=== PATIENT | female | born 1960 | race Caucasian/White ===

== ENCOUNTER 2018-11-07 15:49 | Inpatient (IN) | payer BC, SELFPAY ==
[2018-11-07] VITALS (7 sets, daily range): BP systolic 91–146; BP diastolic 65–89; PULSE 68–78; RESP 13–22; TEMP 36.3–36.4; O2SAT 94–100; BMI 25.9
--- NOTE | 2018-11-07 16:22 | DI.RAD.S_ITS ---
PROCEDURE: XR ACUTE ABDOMEN SERIES INDICATIONS: abd pain, n/v, constipation TECHNIQUE: One view chest and two views of the abdomen were acquired. COMPARISON: None. FINDINGS: Surgical changes and devices: None. Chest: Lungs are clear. Heart size is normal. No pleural effusions. No pneumoperitoneum. Abdomen: The no air-filled distended small bowel loops are evident. Moderate to large amount of residual stool seen throughout the colon. No suspicious calcifications. Visualized solid organ contours appear normal. Bones: No suspicious bony lesions. Mild to moderate degenerative changes of the spine and pelvic joints are present. IMPRESSION: 1. No bowel obstruction. 2. Constipation. 3. No acute cardiopulmonary process. Dictated by: Андрей Stevens M.D. on 11/07/2018 at 16:55 Approved by: Андрей Stevens M.D. on 11/07/2018 at 16:55
--- NOTE | 2018-11-07 16:27 | DI.CT.S_ITS ---
PROCEDURE: CT HEAD/BRAIN WO CON INDICATIONS: n/v, recent crani TECHNIQUE: Noncontrast 4.5 mm thick angled axial sections acquired from the foramen magnum to the vertex, with coronal and sagittal reformats. For radiation dose reduction, the following was used: automated exposure control, adjustment of mA and/or kV according to patient size. COMPARISON: None. FINDINGS: Image quality: Excellent. CSF spaces: Basal cisterns are patent. No definite extra-axial fluid collections. Linear area of high attenuation overlying the right frontoparietal region probably represents dural thickening. However, the possibility of a very small hemorrhage is difficult to exclude. This structure measures approximately 5 mm in maximal thickness. Ventricles are mildly prominent. Brain: No midline shift. No intracranial masses or hemorrhage. Urrutia-white matter interface is normal. There is a large area of low attenuation/encephalomalacia involving the right frontal parietal and temporal lobes. This is similar to the previous exam. Skull and face: Calvarium and visualized facial bones are intact, without suspicious lesions. Postoperative changes are present related to prior craniotomy. The bone flap is in appropriate position. Sinuses: Visualized sinuses and mastoids are clear. IMPRESSION: 1. Linear area of increased density overlying the right frontoparietal region underlying the bone flap probably represents dural thickening and postoperative change. However, the possibility of a subtle acute small subdural hematoma is difficult to exclude. Followup CT imaging may be of value. 2. Interval placement of the bone flap, which appears to be in appropriate position. 3. Large area of encephalomalacia overlying the right frontoparietal region is unchanged. Dictated by: Андрей Stevens M.D. on 11/07/2018 at 16:29 Approved by: Андрей Stevens M.D. on 11/07/2018 at 16:34
[2018-11-07] MEDS: SODIUM CHLORIDE 0.9% 1,000 ML 1000 ML IV (16:35)
--- NOTE | 2018-11-07 16:46 | ED.NAVMDI ---
HPI - Nausea/Vomiting/Diarrhea <Dahlia Ma, WAFER MACHINE OPERATOR-BC - Last Filed: 11/07/18 21:07> General Chief complaint: Nausea/Vomiting/Diarrhea Stated complaint: vomiting Time Seen by Provider: 11/07/18 16:09 Source: patient and family Mode of arrival: wheelchair Limitations: no limitations History of Present Illness HPI Narrative: The patient is a 57-year-old female nonsmoker with history of craniotomy who presents with her and daughter for chief complaint of abdominal pain nausea and vomiting. 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. She is also being treated for UTI with Levaquin. states that the patient has been dry heaving most of the day, was initially getting up bilious material. He states that her nausea and vomiting has been getting worse. She has been unable to keep down her medications today. states that she has been acting normal for her. Patient states pain in the center of the abdomen. No fevers, no dysuria urgency or frequency. No cough or congestion per . Patient denies chest pain or shortness of breath. No falls or recent trauma. Related Data Home Medications Medication Instructions Recorded Confirmed acetaminophen 650 mg PO Q4H PRN 11/07/18 11/07/18 amiodarone 200 mg PO BID 11/07/18 11/07/18 aspirin 81 mg PO DAILY 11/07/18 11/07/18 atorvastatin 40 mg PO DAILY 11/07/18 11/07/18 bisacodyl 10 mg LA DAILY PRN 11/07/18 11/07/18 doxazosin 1 mg PO DAILY 11/07/18 11/07/18 enoxaparin 40 mg SUBCUT DAILY 11/07/18 11/07/18 furosemide [Lasix] 40 mg PO DAILY 11/07/18 11/07/18 glucagon (human recombinant) 1 mg IM Q20M PRN 11/07/18 11/07/18 insulin glargine 25 unit SUBCUT BID 11/07/18 11/07/18 insulin lispro [Humalog U-100 2 - 12 unit SUBCUT TID 11/07/18 11/07/18 Insulin] levetiracetam 500 mg PO BID 11/07/18 11/07/18 melatonin 3 mg PO BEDTIME PRN 11/07/18 11/07/18 metoprolol succinate 12.5 mg PO DAILY 11/07/18 11/07/18 nystatin 1 applic TOPICAL BID PRN 11/07/18 11/07/18 polyethylene glycol 3350 [Miralax] 17 g PO DAILY 11/07/18 11/07/18 quetiapine 25 mg PO BEDTIME PRN 11/07/18 11/07/18 sennosides [senna] 17.2 mg PO BEDTIME 11/07/18 11/07/18 trazodone 25 mg PO BEDTIME PRN 11/07/18 11/07/18 white petrolatum-mineral oil 0.125 inch EYE-BOTH BEDTIME PRN 11/07/18 11/07/18 [Artificial Tears (chel/min)] Allergies Allergy/AdvReac Type Severity Reaction Status Date / Time lisinopril Allergy Verified 11/07/18 15:55 oxycodone Allergy Verified 11/07/18 15:55 Review of Systems <REMIGIO Bailey - Last Filed: 11/07/18 21:07> Review of Systems GENERAL: Denies chills, fatigue, malaise, fever, sweats. HEENT: Denies sinus pain, ear pain, sore throat, difficulty swallowing, dizziness. RESPIRATORY: Denies dyspnea, cough, wheezing, hemoptysis, sputum. CARDIOVASCULAR: Denies chest pain, palpitations, orthopnea, edema, GASTROINTESTINAL: See HPI : Denies dysuria, frequency, incontinence, hematuria, urinary retention. MUSCULOSKELETAL: denies weakness, joint pain, or bony pain SKIN: See HPI NEUROLOGIC: See HPI PSYCHIATRIC: No concerning psychosocial issues. 12 point review of systems is negative except for those stated above PFSH <REMIGIO Bailey - Last Filed: 11/07/18 21:07> Medical History History of UTI (Acute) History of seizures (Acute) Hypertension (Acute) Nerve pain (Acute) Surgical History History of craniotomy (Acute) Social History Smoking Status: Never smoker Social History household members: spouse and significant other Smoking Status: Never smoker alcohol intake: never Exam <REMIGIO Bailey - Last Filed: 11/07/18 21:07> Narrative Exam Narrative: GENERAL: Chronically ill-appearing female lying on stretcher moaning HEAD: Atraumatic. Normocephalic. No temporal or scalp tenderness. EYES: Pupils equal round and reactive. Extraocular motions intact. No scleral icterus. No injection or drainage. ENT: Nose without bleeding, purulent drainage or septal hematoma. Throat without erythema, tonsillar hypertrophy or exudate. Uvula midline. Airway patent. NECK: Trachea midline. No JVD or lymphadenopathy. Supple, nontender, no meningeal signs. CARDIOVASCULAR: Regular rate and rhythm RESPIRATORY: Clear to auscultation. Breath sounds equal bilaterally. No wheezes, rales, or rhonchi. No cough. No increased respiratory effort. GASTROINTESTINAL: Abdomen soft, diffuse epigastric tenderness to palpation nondistended. No hepato-splenomegaly, or palpable masses. No guarding. EXTREMITIES: No clubbing, cyanosis, or edema. No joint tenderness, effusion, or edema noted. BACK: Nontender without deformity or crepitance. No flank tenderness. NEURO: Alert. Oriented. SKIN: Recent craniotomy scar left right side of head Initial Vital Signs Initial Vital Signs: Vital Signs Temperature 97.5 F L 11/07/18 15:55 Pulse Rate 68 11/07/18 15:55 Respiratory Rate 22 11/07/18 15:55 Blood Pressure 91/66 11/07/18 15:55 Pulse Oximetry 99 11/07/18 15:55 <Travis Rose DO - Last Filed: 11/07/18 23:24> Initial Vital Signs Initial Vital Signs: Vital Signs Temperature 97.5 F L 11/07/18 15:55 Pulse Rate 68 11/07/18 15:55 Respiratory Rate 22 11/07/18 15:55 Blood Pressure 91/66 11/07/18 15:55 Pulse Oximetry 99 11/07/18 15:55 Course <REMIGIO Bailey - Last Filed: 11/07/18 21:07> Course Narrative: I checked on the patient several times throughout her stay in the emergency department. Given the patient's head CT results, I spoke with Neurosurgery down at [facility] and spoke with Dr. Zhen given the radiologist concern. Orders Ordered: ED Orders 11/07/18 16:22 XR acute abdomen series Stat 11/07/18 16:27 CT head/brain wo con Stat 11/07/18 16:42 Amylase Stat Complete Blood Count AUTO DIFF Stat Comprehensive Metabolic Panel Stat Lactate (Lactic Acid) Stat Lipase Stat Procalcitonin Stat Troponin & CK Cardiac Panel Stat 11/07/18 18:16 CT abdomen pelvis w con Stat 11/07/18 18:18 Urine Microscopic Stat 11/07/18 20:12 EKG-12 Lead Stat 11/07/18 22:06 Consult to Dietitian, Adult Routine Consult to Dietitian, Adult Routine Consult to Crew Clerk Routine 11/07/18 22:07 Consult to Discharge Planning Routine Consult to Occupational Therapy Evaluate & Treat 11/07/18 22:08 Consult to Physical Therapy Evaluate & Treat 11/08/18 05:00 Basic Metabolic Panel Routine Complete Blood Count AUTO DIFF Routine Magnesium Routine Aspirin (Aspirin) 300 mg LA DAILY MIRIAN Bisacodyl (Dulcolax) 10 mg PO DAILY PRN PRN Reason: Constipation Dextrose (D50w) 25 gm IV PRN PRN; Protocol PRN Reason: Hypoglycemia Docusate Sodium (Colace) 100 mg PO BID [facility] Enoxaparin Sodium (Lovenox) 40 mg SUBCUT DAILY [facility] Sodium Chloride (Normal Saline 0.9%) 1,000 mls @ 200 mls/hr IV CONT [facility] Last Admin: 11/07/18 22:33 Dose: 200 mls/hr Levetiracetam 500 mg/ Sodium (Chloride) 105 mls @ 420 mls/hr IV Q12HR [facility] Last Admin: 11/07/18 22:48 Dose: 420 mls/hr Insulin Aspart (Novolog Flexpen) 0 unit SUBCUT ACHS [facility]; Protocol Lorazepam (Ativan) 0.5 mg IV Q6HR PRN PRN Reason: Nausea Metoprolol Tartrate (Lopressor) 5 mg IV Q6H [facility] Ondansetron HCl (Zofran) 4 mg IV Q6HR PRN PRN Reason: Nausea And Vomiting Pantoprazole Sodium (Protonix) 40 mg IV BID [facility] Last Admin: 11/07/18 22:48 Dose: 40 mg Promethazine HCl (Phenadoz) 12.5 mg LA Q6HR PRN PRN Reason: Nausea And Vomiting Sennosides (Senna) 17.2 mg PO BEDTIME MIRIAN Discontinued Medications Aspirin (Aspirin) 300 mg LA NOW ONE Stop: 11/07/18 22:11 Sodium Chloride (Normal Saline 0.9%) 1,000 mls @ 1,000 mls/hr IV BOLUS ONE Stop: 11/07/18 17:23 Last Infusion: 11/07/18 19:42 Dose: 0 mls/hr Admin: 11/07/18 16:35 Dose: 1,000 mls/hr Sodium Chloride (Normal Saline 0.9%) 1,000 mls @ 250 mls/hr IV CONT MIRIAN Last Admin: 11/07/18 22:49 Dose: Not Given Lorazepam (Ativan) 0.5 mg IV NOW ONE Stop: 11/07/18 20:44 Last Admin: 11/07/18 20:52 Dose: 0.5 mg Methylprednisolone (Solu-Medrol 125 Mg Vial) 125 mg IV NOW ONE Stop: 11/07/18 20:44 Metoclopramide HCl (Reglan) 10 mg IV NOW ONE Stop: 11/07/18 16:29 Last Admin: 11/07/18 17:12 Dose: 10 mg Mineral Oil (Mineral Oil Enema) 1 each LA NOW ONE Stop: 11/07/18 22:54 Ondansetron HCl (Zofran) 4 mg IV NOW ONE Stop: 11/07/18 16:46 Last Admin: 11/07/18 17:12 Dose: 4 mg Ondansetron HCl (Zofran) 4 mg IV NOW ONE Stop: 11/07/18 19:42 Last Admin: 11/07/18 19:56 Dose: 4 mg Promethazine HCl (Phenadoz) 25 mg LA NOW ONE Stop: 11/07/18 19:58 Last Admin: 11/07/18 22:51 Dose: Not Given Vital Signs - 8 hr 11/07/18 15:55 11/07/18 16:30 11/07/18 18:30 Temperature 97.5 F L Pulse Rate 68 69 77 Respiratory Rate 22 13 Blood Pressure 91/66 Blood Pressure [Left Arm] 123/89 132/68 Pulse Oximetry 99 100 98 11/07/18 19:34 11/07/18 21:55 11/07/18 22:50 Temperature 97.3 F L Pulse Rate 74 77 Respiratory Rate 18 14 Blood Pressure 146/71 H Blood Pressure [Left Arm] 107/65 Pulse Oximetry 96 94 94 <Travis Rose, DO - Last Filed: 11/07/18 23:24> Orders Ordered: ED Orders 11/07/18 16:22 XR acute abdomen series Stat 11/07/18 16:27 CT head/brain wo con Stat 11/07/18 16:42 Amylase Stat Complete Blood Count AUTO DIFF Stat Comprehensive Metabolic Panel Stat Lactate (Lactic Acid) Stat Lipase Stat Procalcitonin Stat Troponin & CK Cardiac Panel Stat 11/07/18 18:16 CT abdomen pelvis w con Stat 11/07/18 18:18 Urine Microscopic Stat 11/07/18 20:12 EKG-12 Lead Stat 11/07/18 22:06 Consult to Dietitian, Adult Routine Consult to Dietitian, Adult Routine Consult to Crew Clerk Routine 11/07/18 22:07 Consult to Discharge Planning Routine Consult to Occupational Therapy Evaluate & Treat 11/07/18 22:08 Consult to Physical Therapy Evaluate & Treat 11/08/18 05:00 Basic Metabolic Panel Routine Complete Blood Count AUTO DIFF Routine Magnesium Routine Aspirin (Aspirin) 300 mg LA DAILY MIRIAN Bisacodyl (Dulcolax) 10 mg PO DAILY PRN PRN Reason: Constipation Dextrose (D50w) 25 gm IV PRN PRN; Protocol PRN Reason: Hypoglycemia Docusate Sodium (Colace) 100 mg PO BID [facility] Enoxaparin Sodium (Lovenox) 40 mg SUBCUT DAILY [facility] Sodium Chloride (Normal Saline 0.9%) 1,000 mls @ 200 mls/hr IV CONT [facility] Last Admin: 11/07/18 22:33 Dose: 200 mls/hr Levetiracetam 500 mg/ Sodium (Chloride) 105 mls @ 420 mls/hr IV Q12HR [facility] Last Admin: 11/07/18 22:48 Dose: 420 mls/hr Insulin Aspart (Novolog Flexpen) 0 unit SUBCUT ACHS [facility]; Protocol Lorazepam (Ativan) 0.5 mg IV Q6HR PRN PRN Reason: Nausea Metoprolol Tartrate (Lopressor) 5 mg IV Q6H [facility] Ondansetron HCl (Zofran) 4 mg IV Q6HR PRN PRN Reason: Nausea And Vomiting Pantoprazole Sodium (Protonix) 40 mg IV BID [facility] Last Admin: 11/07/18 22:48 Dose: 40 mg Promethazine HCl (Phenadoz) 12.5 mg LA Q6HR PRN PRN Reason: Nausea And Vomiting Sennosides (Senna) 17.2 mg PO BEDTIME [facility] Discontinued Medications Aspirin (Aspirin) 300 mg LA NOW ONE Stop: 11/07/18 22:11 Sodium Chloride (Normal Saline 0.9%) 1,000 mls @ 1,000 mls/hr IV BOLUS ONE Stop: 11/07/18 17:23 Last Infusion: 11/07/18 19:42 Dose: 0 mls/hr Admin: 11/07/18 16:35 Dose: 1,000 mls/hr Sodium Chloride (Normal Saline 0.9%) 1,000 mls @ 250 mls/hr IV CONT MIRIAN Last Admin: 11/07/18 22:49 Dose: Not Given Lorazepam (Ativan) 0.5 mg IV NOW ONE Stop: 11/07/18 20:44 Last Admin: 11/07/18 20:52 Dose: 0.5 mg Methylprednisolone (Solu-Medrol 125 Mg Vial) 125 mg IV NOW ONE Stop: 11/07/18 20:44 Metoclopramide HCl (Reglan) 10 mg IV NOW ONE Stop: 11/07/18 16:29 Last Admin: 11/07/18 17:12 Dose: 10 mg Mineral Oil (Mineral Oil Enema) 1 each LA NOW ONE Stop: 11/07/18 22:54 Ondansetron HCl (Zofran) 4 mg IV NOW ONE Stop: 11/07/18 16:46 Last Admin: 11/07/18 17:12 Dose: 4 mg Ondansetron HCl (Zofran) 4 mg IV NOW ONE Stop: 11/07/18 19:42 Last Admin: 11/07/18 19:56 Dose: 4 mg Promethazine HCl (Phenadoz) 25 mg LA NOW ONE Stop: 11/07/18 19:58 Last Admin: 11/07/18 22:51 Dose: Not Given Vital Signs - 8 hr 11/07/18 15:55 11/07/18 16:30 11/07/18 18:30 Temperature 97.5 F L Pulse Rate 68 69 77 Respiratory Rate 22 13 Blood Pressure 91/66 Blood Pressure [Left Arm] 123/89 132/68 Pulse Oximetry 99 100 98 11/07/18 19:34 11/07/18 21:55 11/07/18 22:50 Temperature 97.3 F L Pulse Rate 74 77 Respiratory Rate 18 14 Blood Pressure 146/71 H Blood Pressure [Left Arm] 107/65 Pulse Oximetry 96 94 94 MDM - Nausea/Vomiting/Diarrhea <Dahliayousif Oglesbymer, WAFER MACHINE OPERATOR-BC - Last Filed: 11/07/18 21:07> Lab Data Result diagrams: 11/07/18 16:42 11/07/18 16:42 Lab Results 11/07/18 11/07/18 11/07/18 Range/Units 16:42 16:42 16:42 WBC 12.5 H (4.5-11.0) X10^3/uL RBC 4.43 (4.0-5.2) X10^6/uL Hgb 12.8 (12.0-16.0) g/dL Hct 38.2 (36-46) % MCV 86.2 (80-100) fL MCH 28.9 (26-34) PG MCHC 33.5 (30-36) % RDW 15.5 H (11.6-14.8) % Plt Count 363 (150-400) X10^3/uL Neut % (Auto) 84.1 H (50-75) % Lymph % (Auto) 12.0 L (25-40) % Ellis % (Auto) 2.7 L (3-14) % Eos % (Auto) 0.4 L (2-4) % Baso % (Auto) 0.8 (0-2) % Neut # (Auto) 47807 H (2660-6391) /uL Lymph # (Auto) 1500 (7712-8658) /uL Ellis # (Auto) 300 (0-900) /uL Eos # (Auto) 100 (0-450) /uL Baso # (Auto) 100 (0-100) /uL Sodium 139 (137-145) mmol/L Potassium 4.6 (3.4-5.1) mmol/L Chloride 101 (98-107) mmol/L Carbon Dioxide 22 (22-32) mmol/L BUN 19 H (7-17) mg/dL Creatinine 1.00 (0.52-1.04) mg/dL Estimated GFR 56.7 L (>60) mL/min BUN/Creatinine Ratio 19.0 (6-22) Glucose 194 H (70-100) mg/dL Lactate 2.3 H (0.7-2.1) mmol/L Calcium 9.9 (8.4-10.2) mg/dL Total Bilirubin 0.9 (0.2-1.3) mg/dL AST 30 (14-36) IU/L ALT 29 (9-52) IU/L Alkaline Phosphatase 67 (38-126) U/L Total Creatine Kinase 21 L (30-135) U/L CK-MB (CK-2) TNP CK-MB (CK-2) Rel Index TNP Troponin I < 0.012 (0.01-0.034) ng/mL Total Protein 7.8 (6.3-8.2) g/dL Albumin 4.5 (3.5-5.0) g/dL Globulin 3.3 (1.7-4.1) g/dL Albumin/Globulin Ratio 1.4 (1.0-2.8) Amylase 60 (30-110) U/L Lipase 99 (23-300) U/L Procalcitonin (<0.5) ng/mL Urine RBC (0-5/HPF) Urine WBC (0-5/HPF) Ur Squamous Epith Cells (0-5/HPF) Urine Bacteria (None) Hyaline Casts (None) Urine Mucus (Negative) Ur Culture Indicated? 11/07/18 11/07/18 11/07/18 Range/Units 16:42 18:18 19:00 WBC (4.5-11.0) X10^3/uL RBC (4.0-5.2) X10^6/uL Hgb (12.0-16.0) g/dL Hct (36-46) % MCV (80-100) fL MCH (26-34) PG MCHC (30-36) % RDW (11.6-14.8) % Plt Count (150-400) X10^3/uL Neut % (Auto) (50-75) % Lymph % (Auto) (25-40) % Ellis % (Auto) (3-14) % Eos % (Auto) (2-4) % Baso % (Auto) (0-2) % Neut # (Auto) (3559-2838) /uL Lymph # (Auto) (0508-2815) /uL Ellis # (Auto) (0-900) /uL Eos # (Auto) (0-450) /uL Baso # (Auto) (0-100) /uL Sodium (137-145) mmol/L Potassium (3.4-5.1) mmol/L Chloride (98-107) mmol/L Carbon Dioxide (22-32) mmol/L BUN (7-17) mg/dL Creatinine (0.52-1.04) mg/dL Estimated GFR (>60) mL/min BUN/Creatinine Ratio (6-22) Glucose (70-100) mg/dL Lactate 1.3 (0.7-2.1) mmol/L Calcium (8.4-10.2) mg/dL Total Bilirubin (0.2-1.3) mg/dL AST (14-36) IU/L ALT (9-52) IU/L Alkaline Phosphatase (38-126) U/L Total Creatine Kinase (30-135) U/L CK-MB (CK-2) CK-MB (CK-2) Rel Index Troponin I (0.01-0.034) ng/mL Total Protein (6.3-8.2) g/dL Albumin (3.5-5.0) g/dL Globulin (1.7-4.1) g/dL Albumin/Globulin Ratio (1.0-2.8) Amylase (30-110) U/L Lipase (23-300) U/L Procalcitonin < 0.05 (<0.5) ng/mL Urine RBC 0-1/hpf (0-5/HPF) Urine WBC 0-1/hpf (0-5/HPF) Ur Squamous Epith Cells 0-1 /hpf (0-5/HPF) Urine Bacteria None seen (None) Hyaline Casts 0-1/lpf (None) Urine Mucus 1+ H (Negative) Ur Culture Indicated? Cult not indicated Urine Dip Bedside Urine Glucose Negative Bedside Urine Bilirubin + 1 Bedside Urine Ketone +++ 80 Urine Specific [place] 1.030 Bedside Urine Occult Blood - Negative Bedside Urine pH 5.5 Bedside Urine Protein - Negative Bedside Urine Urobilinogen - Negative Bedside Urine Nitrite - Negative Bedside Urine Leukocytes - Negative Esterase Imaging Data CT scan - abdomen: Radiologist's impression: Zahira Newman 57 F [address] [address] [address] Scan Report Signed Patient: Zahira Newman [facility]#: [id number] : 1960cct:[id number] Age/Sex: 57 / FDate of Service: 11/07/18 Loc: ED Accession Number: [id number] Procedure: CT abdomen pelvis w con Ordering Provider: Dahlia Ma WAFER MACHINE OPERATOR-BC PROCEDURE: CT ABDOMEN PELVIS W CON INDICATIONS: abd pain, elevated wbc, lactate TECHNIQUE: After the administration of intravenous contrast, 5 mm thick sections acquired from the diaphragm to the symphysis. 5 mm coronal and sagittal reformats were acquired. For radiation dose reduction, the following was used: automated exposure control, adjustment of mA and/or kV according to patient size. COMPARISON: None. FINDINGS: Image quality: Excellent. ABDOMEN: Lung bases: Lung bases are clear. Heart size is enlarged. Solid organs: Liver is normal in size and enhancement. Gallbladder demonstrates mild wall hyperemia and contains a large gallstone in the mid body. No significant pericholecystic inflammation. Biliary system is non dilated. Pancreas enhances normally. Spleen is normal in size and enhancement. Tiny fat density right adrenal nodule. Normal left adrenal gland. Kidneys demonstrate normal size and enhancement, without hydronephrosis. Peritoneum and bowel: The stomach and small bowel loops are normal. There is mild inflammatory change surrounding the proximal colon without a focal diverticulum. Normal amount of solid stool present in the transverse and descending colon. Occasional descending and sigmoid diverticula. No extraluminal gas. Normal appendix present. Nodes and vessels: No retroperitoneal or mesenteric adenopathy by size criteria. Aorta and is normal size. The inferior vena cava is mildly flattened. Miscellaneous: No ventral hernias. PELVIS: Genitourinary: Urinary bladder wall is diffusely thickened anteriorly. Uterus and ovaries appear normal. Miscellaneous: No inguinal hernias or adenopathy. Bones: No suspicious bony lesions. There is laminectomy and osseous fusion of the lower lumbosacral spine. Degenerative disc changes are present. No acute fractures. IMPRESSION: 1. Mild pericolonic inflammatory change in the proximal colon indicating colitis without perforation or abscess formation. 2. Normal appendix. 3. Anterior wall thickening of the urinary bladder. This may indicate cystitis, infectious or sterile. Correlate clinically. 4. Cholelithiasis and gallbladder wall hyperemia. No pericholecystic inflammatory changes to suggest acute cholecystitis. 5. Tiny right adrenal adenoma. Dictated by: Alisia Huitron M.D. on 11/07/2018 at 20:18 Approved by: Alisia Huitron M.D. on 11/07/2018 at 20:26 CT scan - head: Radiologist's impression: Zahira Newman 57 F 1960 [place] [address] CT Scan Report Signed Patient: Zahira Newman [facility]#: [id number] : [id number]:[id number] Age/Sex: 57 / FDate of Service: 11/07/18 Loc: ED Accession Number: [id number] Procedure: CT head/brain wo con Ordering Provider: Dahlia Ma [facility] PROCEDURE: CT HEAD/BRAIN WO CON INDICATIONS: n/v, recent crani TECHNIQUE: Noncontrast 4.5 mm thick angled axial sections acquired from the foramen magnum to the vertex, with coronal and sagittal reformats. For radiation dose reduction, the following was used: automated exposure control, adjustment of mA and/or kV according to patient size. COMPARISON: None. FINDINGS: Image quality: Excellent. CSF spaces: Basal cisterns are patent. No definite extra-axial fluid collections. Linear area of high attenuation overlying the right frontoparietal region probably represents dural thickening. However, the possibility of a very small hemorrhage is difficult to exclude. This structure measures approximately 5 mm in maximal thickness. Ventricles are mildly prominent. Brain: No midline shift. No intracranial masses or hemorrhage. Urrutia-white matter interface is normal. There is a large area of low attenuation/encephalomalacia involving the right frontal parietal and temporal lobes. This is similar to the previous exam. Skull and face: Calvarium and visualized facial bones are intact, without suspicious lesions. Postoperative changes are present related to prior craniotomy. The bone flap is in appropriate position. Sinuses: Visualized sinuses and mastoids are clear. IMPRESSION: 1. Linear area of increased density overlying the right frontoparietal region underlying the bone flap probably represents dural thickening and postoperative change. However, the possibility of a subtle acute small subdural hematoma is difficult to exclude. Followup CT imaging may be of value. 2. Interval placement of the bone flap, which appears to be in appropriate position. 3. Large area of encephalomalacia overlying the right frontoparietal region is unchanged. Dictated by: Андрей Stevens M.D. on 11/07/2018 at 16:29 Approved by: Андрей Stevens M.D. on 11/07/2018 at 16:34 Chest x-ray: Radiologist's impression: [address] [address] XRay Report Signed Patient: Zahira Newman [facility]#: [id number] : 9Acct:[id number] Age/Sex: 57 / FDate of Service: 11/07/18 Loc: ED Accession Number: [id number] Procedure: XR acute abdomen series Ordering Provider: Dahlia Ma PROCEDURE: XR ACUTE ABDOMEN SERIES INDICATIONS: abd pain, n/v, constipation TECHNIQUE: One view chest and two views of the abdomen were acquired. COMPARISON: None. FINDINGS: Surgical changes and devices: None. Chest: Lungs are clear. Heart size is normal. No pleural effusions. No pneumoperitoneum. Abdomen: The no air-filled distended small bowel loops are evident. Moderate to large amount of residual stool seen throughout the colon. No suspicious calcifications. Visualized solid organ contours appear normal. Bones: No suspicious bony lesions. Mild to moderate degenerative changes of the spine and pelvic joints are present. IMPRESSION: 1. No bowel obstruction. 2. Constipation. 3. No acute cardiopulmonary process. Dictated by: Андрей Stevens M.D. on 11/07/2018 at 16:55 Approved by: Андрей Stevens M.D. on 11/07/2018 at 16:55 ECG Data Attestation: I personally reviewed and interpreted this ECG as follows: Interpretation: Sinus rhythm. Ventricular rate 79. No ectopy noted. No ST elevation or depression. MDM Narrative Medical decision making narrative: The patient is a 57-year-old female who presents with a chief complaint of nausea vomiting. She has a very complicated medical history including stroke, recent craniotomy, hypertension. The patient's x-ray illustrated constipation. Her CT scan indicates colitis. The patient was given several doses of Zofran throughout her stay in the ER. She was dry initially on presentation, so she was given IV fluid. She was also given Reglan. Phenergan suppositories ordered. IV Ativan was given. Despite all this the patient remained very nauseous and vomiting throughout her stay in the ER. Her lactate was 2.3 initially, but decreased after fluids. Her white blood cell count is 12.5. The patient repeatedly stated she could not tolerate pain medication throughout her stay in the ER. I feel as though her nausea and vomiting is likely related to the constipation. It is very suspicious that the patient's bowel medications were stopped upon discharge, and the timing of her constipation. However given that she is unable to keep down fluids I contacted our hospitalist for admission. Patient admitted to [facility]. <Travis Rose, DO - Last Filed: 11/07/18 23:24> Lab Data Lab Results 11/07/18 11/07/18 11/07/18 Range/Units 16:42 16:42 16:42 WBC 12.5 H (4.5-11.0) X10^3/uL RBC 4.43 (4.0-5.2) X10^6/uL Hgb 12.8 (12.0-16.0) g/dL Hct 38.2 (36-46) % MCV 86.2 (80-100) fL MCH 28.9 (26-34) PG MCHC 33.5 (30-36) % RDW 15.5 H (11.6-14.8) % Plt Count 363 (150-400) X10^3/uL Neut % (Auto) 84.1 H (50-75) % Lymph % (Auto) 12.0 L (25-40) % Ellis % (Auto) 2.7 L (3-14) % Eos % (Auto) 0.4 L (2-4) % Baso % (Auto) 0.8 (0-2) % Neut # (Auto) 72142 H (9485-0173) /uL Lymph # (Auto) 1500 (3030-5276) /uL Ellis # (Auto) 300 (0-900) /uL Eos # (Auto) 100 (0-450) /uL Baso # (Auto) 100 (0-100) /uL Sodium 139 (137-145) mmol/L Potassium 4.6 (3.4-5.1) mmol/L Chloride 101 (98-107) mmol/L Carbon Dioxide 22 (22-32) mmol/L BUN 19 H (7-17) mg/dL Creatinine 1.00 (0.52-1.04) mg/dL Estimated GFR 56.7 L (>60) mL/min BUN/Creatinine Ratio 19.0 (6-22) Glucose 194 H (70-100) mg/dL Lactate 2.3 H (0.7-2.1) mmol/L Calcium 9.9 (8.4-10.2) mg/dL Total Bilirubin 0.9 (0.2-1.3) mg/dL AST 30 (14-36) IU/L ALT 29 (9-52) IU/L Alkaline Phosphatase 67 (38-126) U/L Total Creatine Kinase 21 L (30-135) U/L CK-MB (CK-2) TNP CK-MB (CK-2) Rel Index TNP Troponin I < 0.012 (0.01-0.034) ng/mL Total Protein 7.8 (6.3-8.2) g/dL Albumin 4.5 (3.5-5.0) g/dL Globulin 3.3 (1.7-4.1) g/dL Albumin/Globulin Ratio 1.4 (1.0-2.8) Amylase 60 (30-110) U/L Lipase 99 (23-300) U/L Procalcitonin (<0.5) ng/mL Urine RBC (0-5/HPF) Urine WBC (0-5/HPF) Ur Squamous Epith Cells (0-5/HPF) Urine Bacteria (None) Hyaline Casts (None) Urine Mucus (Negative) Ur Culture Indicated? 11/07/18 11/07/18 11/07/18 Range/Units 16:42 18:18 19:00 WBC (4.5-11.0) X10^3/uL RBC (4.0-5.2) X10^6/uL Hgb (12.0-16.0) g/dL Hct (36-46) % MCV (80-100) fL MCH (26-34) PG MCHC (30-36) % RDW (11.6-14.8) % Plt Count (150-400) X10^3/uL Neut % (Auto) (50-75) % Lymph % (Auto) (25-40) % Ellis % (Auto) (3-14) % Eos % (Auto) (2-4) % Baso % (Auto) (0-2) % Neut # (Auto) (0411-2478) /uL Lymph # (Auto) (7420-3806) /uL Ellis # (Auto) (0-900) /uL Eos # (Auto) (0-450) /uL Baso # (Auto) (0-100) /uL Sodium (137-145) mmol/L Potassium (3.4-5.1) mmol/L Chloride (98-107) mmol/L Carbon Dioxide (22-32) mmol/L BUN (7-17) mg/dL Creatinine (0.52-1.04) mg/dL Estimated GFR (>60) mL/min BUN/Creatinine Ratio (6-22) Glucose (70-100) mg/dL Lactate 1.3 (0.7-2.1) mmol/L Calcium (8.4-10.2) mg/dL Total Bilirubin (0.2-1.3) mg/dL AST (14-36) IU/L ALT (9-52) IU/L Alkaline Phosphatase (38-126) U/L Total Creatine Kinase (30-135) U/L CK-MB (CK-2) CK-MB (CK-2) Rel Index Troponin I (0.01-0.034) ng/mL Total Protein (6.3-8.2) g/dL Albumin (3.5-5.0) g/dL Globulin (1.7-4.1) g/dL Albumin/Globulin Ratio (1.0-2.8) Amylase (30-110) U/L Lipase (23-300) U/L Procalcitonin < 0.05 (<0.5) ng/mL Urine RBC 0-1/hpf (0-5/HPF) Urine WBC 0-1/hpf (0-5/HPF) Ur Squamous Epith Cells 0-1 /hpf (0-5/HPF) Urine Bacteria None seen (None) Hyaline Casts 0-1/lpf (None) Urine Mucus 1+ H (Negative) Ur Culture Indicated? Cult not indicated Urine Dip Bedside Urine Glucose Negative Bedside Urine Bilirubin + 1 Bedside Urine Ketone +++ 80 Urine Specific [place] 1.030 Bedside Urine Occult Blood - Negative Bedside Urine pH 5.5 Bedside Urine Protein - Negative Bedside Urine Urobilinogen - Negative Bedside Urine Nitrite - Negative Bedside Urine Leukocytes - Negative Esterase Discharge Plan Departure Patient Disposition: Admitted as Observation Clinical Impression: Nausea & vomiting Qualifiers: Vomiting type: unspecified Vomiting Intractability: intractable Qualified Code(s): R11.2 - Nausea with vomiting, unspecified Discharge Date/Time: 11/07/18 21:22 Interventions: ED Discharge Assessment Last Done: 11/07/18 21:20 Admit Date/Time: 11/07/18 21:11 Admit Provider: Horace Dent <Travis Rose DO - Last Filed: 11/07/18 23:24> Cosign ED Attending Coskathrynature Attestation: I was available for consultation during this patient's emergency department encounter
--- NOTE | 2018-11-07 16:51 | ED_ITS ---
HPI - Nausea/Vomiting/Diarrhea <Dahlia Ma, SOCIAL INSURANCE SPECIALIST-BC - Last Filed: 11/07/18 21:07> General Chief complaint: Nausea/Vomiting/Diarrhea Stated complaint: vomiting Time Seen by Provider: 11/07/18 16:09 Source: patient and family Mode of arrival: wheelchair Limitations: no limitations History of Present Illness HPI Narrative: The patient is a 57-year-old female nonsmoker with history of craniotomy who presents with her and daughter for chief complaint of abdominal pain nausea and vomiting. 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 She is also being treated for UTI with Levaquin. states that the patient has been dry heaving most of the day, was initially getting up bilious material. He states that her nausea and vomiting has been getting worse. She has been unable to keep down her medications today. states that she has been acting normal for her. Patient states pain in the center of the abdomen. No fevers, no dysuria urgency or frequency. No cough or congestion per . Patient denies chest pain or shortness of breath. No falls or recent trauma. Related Data Home Medications Medication Instructions Recorded Confirmed acetaminophen 650 mg PO Q4H PRN 11/07/18 11/07/18 amiodarone 200 mg PO BID 11/07/18 11/07/18 aspirin 81 mg PO DAILY 11/07/18 11/07/18 atorvastatin 40 mg PO DAILY 11/07/18 11/07/18 bisacodyl 10 mg MD DAILY PRN 11/07/18 11/07/18 doxazosin 1 mg PO DAILY 11/07/18 11/07/18 enoxaparin 40 mg SUBCUT DAILY 11/07/18 11/07/18 furosemide [Lasix] 40 mg PO DAILY 11/07/18 11/07/18 glucagon (human recombinant) 1 mg IM Q20M PRN 11/07/18 11/07/18 insulin glargine 25 unit SUBCUT BID 11/07/18 11/07/18 insulin lispro [Humalog U-100 2 - 12 unit SUBCUT TID 11/07/18 11/07/18 Insulin] levetiracetam 500 mg PO BID 11/07/18 11/07/18 melatonin 3 mg PO BEDTIME PRN 11/07/18 11/07/18 metoprolol succinate 12.5 mg PO DAILY 11/07/18 11/07/18 nystatin 1 applic TOPICAL BID PRN 11/07/18 11/07/18 polyethylene glycol 3350 [Miralax] 17 g PO DAILY 11/07/18 11/07/18 quetiapine 25 mg PO BEDTIME PRN 11/07/18 11/07/18 sennosides [senna] 17.2 mg PO BEDTIME 11/07/18 11/07/18 trazodone 25 mg PO BEDTIME PRN 11/07/18 11/07/18 white petrolatum-mineral oil 0.125 inch EYE-BOTH BEDTIME PRN 11/07/18 11/07/18 [Artificial Tears (chel/min)] Allergies Allergy/AdvReac Type Severity Reaction Status Date / Time lisinopril Allergy Verified 11/07/18 15:55 oxycodone Allergy Verified 11/07/18 15:55 Review of Systems <REMIGIO Bailey - Last Filed: 11/07/18 21:07> Review of Systems GENERAL: Denies chills, fatigue, malaise, fever, sweats. HEENT: Denies sinus pain, ear pain, sore throat, difficulty swallowing, dizziness. RESPIRATORY: Denies dyspnea, cough, wheezing, hemoptysis, sputum. CARDIOVASCULAR: Denies chest pain, palpitations, orthopnea, edema, GASTROINTESTINAL: See HPI : Denies dysuria, frequency, incontinence, hematuria, urinary retention. MUSCULOSKELETAL: denies weakness, joint pain, or bony pain SKIN: See HPI NEUROLOGIC: See HPI PSYCHIATRIC: No concerning psychosocial issues. 12 point review of systems is negative except for those stated above PFSH <REMIGIO Bailey - Last Filed: 11/07/18 21:07> Medical History History of UTI (Acute) History of seizures (Acute) Hypertension (Acute) Nerve pain (Acute) Surgical History History of craniotomy (Acute) Social History Smoking Status: Never smoker Social History household members: spouse and significant other Smoking Status: Never smoker alcohol intake: never Exam <REMIGIO Bailey - Last Filed: 11/07/18 21:07> Narrative Exam Narrative: GENERAL: Chronically ill-appearing female lying on stretcher moaning HEAD: Atraumatic. Normocephalic. No temporal or scalp tenderness. EYES: Pupils equal round and reactive. Extraocular motions intact. No scleral icterus. No injection or drainage. ENT: Nose without bleeding, purulent drainage or septal hematoma. Throat without erythema, tonsillar hypertrophy or exudate. Uvula midline. Airway patent. NECK: Trachea midline. No JVD or lymphadenopathy. Supple, nontender, no meningeal signs. CARDIOVASCULAR: Regular rate and rhythm RESPIRATORY: Clear to auscultation. Breath sounds equal bilaterally. No wheezes, rales, or rhonchi. No cough. No increased respiratory effort. GASTROINTESTINAL: Abdomen soft, diffuse epigastric tenderness to palpation nondistended. No hepato-splenomegaly, or palpable masses. No guarding. EXTREMITIES: No clubbing, cyanosis, or edema. No joint tenderness, effusion, or edema noted. BACK: Nontender without deformity or crepitance. No flank tenderness. NEURO: Alert. Oriented. SKIN: Recent craniotomy scar left right side of head Initial Vital Signs Initial Vital Signs: Vital Signs Temperature 97.5 F L 11/07/18 15:55 Pulse Rate 68 11/07/18 15:55 Respiratory Rate 22 11/07/18 15:55 Blood Pressure 91/66 11/07/18 15:55 Pulse Oximetry 99 11/07/18 15:55 <Travis Rose DO - Last Filed: 11/07/18 23:24> Initial Vital Signs Initial Vital Signs: Vital Signs Temperature 97.5 F L 11/07/18 15:55 Pulse Rate 68 11/07/18 15:55 Respiratory Rate 22 11/07/18 15:55 Blood Pressure 91/66 11/07/18 15:55 Pulse Oximetry 99 11/07/18 15:55 Course <REMIGIO Bailey - Last Filed: 11/07/18 21:07> Course Narrative: I checked on the patient several times throughout her stay in the emergency department. Given the patient's head CT results, I spoke with Neurosurgery down at [facility] and spoke with Dr. Zhen given the radiologist concern. Orders Ordered: ED Orders 11/07/18 16:22 XR acute abdomen series Stat 11/07/18 16:27 CT head/brain wo con Stat 11/07/18 16:42 Amylase Stat Complete Blood Count AUTO DIFF Stat Comprehensive Metabolic Panel Stat Lactate (Lactic Acid) Stat Lipase Stat Procalcitonin Stat Troponin & CK Cardiac Panel Stat 11/07/18 18:16 CT abdomen pelvis w con Stat 11/07/18 18:18 Urine Microscopic Stat 11/07/18 20:12 EKG-12 Lead Stat 11/07/18 22:06 Consult to Dietitian, Adult Routine Consult to Dietitian, Adult Routine Consult to Food And Beverage Assistant Routine 11/07/18 22:07 Consult to Discharge Planning Routine Consult to Occupational Therapy Evaluate & Treat 11/07/18 22:08 Consult to Physical Therapy Evaluate & Treat 11/08/18 05:00 Basic Metabolic Panel Routine Complete Blood Count AUTO DIFF Routine Magnesium Routine Aspirin (Aspirin) 300 mg MD DAILY MIRIAN Bisacodyl (Dulcolax) 10 mg PO DAILY PRN PRN Reason: Constipation Dextrose (D50w) 25 gm IV PRN PRN; Protocol PRN Reason: Hypoglycemia Docusate Sodium (Colace) 100 mg PO BID [facility] Enoxaparin Sodium (Lovenox) 40 mg SUBCUT DAILY [facility] Sodium Chloride (Normal Saline 0.9%) 1,000 mls @ 200 mls/hr IV CONT [facility] Last Admin: 11/07/18 22:33 Dose: 200 mls/hr Levetiracetam 500 mg/ Sodium (Chloride) 105 mls @ 420 mls/hr IV Q12HR [facility] Last Admin: 11/07/18 22:48 Dose: 420 mls/hr Insulin Aspart (Novolog Flexpen) 0 unit SUBCUT ACHS [facility]; Protocol Lorazepam (Ativan) 0.5 mg IV Q6HR PRN PRN Reason: Nausea Metoprolol Tartrate (Lopressor) 5 mg IV Q6H [facility] Ondansetron HCl (Zofran) 4 mg IV Q6HR PRN PRN Reason: Nausea And Vomiting Pantoprazole Sodium (Protonix) 40 mg IV BID [facility] Last Admin: 11/07/18 22:48 Dose: 40 mg Promethazine HCl (Phenadoz) 12.5 mg MD Q6HR PRN PRN Reason: Nausea And Vomiting Sennosides (Senna) 17.2 mg PO BEDTIME [facility]IAN Discontinued Medications Aspirin (Aspirin) 300 mg MD NOW ONE Stop: 11/07/18 22:11 Sodium Chloride (Normal Saline 0.9%) 1,000 mls @ 1,000 mls/hr IV BOLUS ONE Stop: 11/07/18 17:23 Last Infusion: 11/07/18 19:42 Dose: 0 mls/hr Admin: 11/07/18 16:35 Dose: 1,000 mls/hr Sodium Chloride (Normal Saline 0.9%) 1,000 mls @ 250 mls/hr IV CONT [facility] Last Admin: 11/07/18 22:49 Dose: Not Given Lorazepam (Ativan) 0.5 mg IV NOW ONE Stop: 11/07/18 20:44 Last Admin: 11/07/18 20:52 Dose: 0.5 mg Methylprednisolone (Solu-Medrol 125 Mg Vial) 125 mg IV NOW ONE Stop: 11/07/18 20:44 Metoclopramide HCl (Reglan) 10 mg IV NOW ONE Stop: 11/07/18 16:29 Last Admin: 11/07/18 17:12 Dose: 10 mg Mineral Oil (Mineral Oil Enema) 1 each MD NOW ONE Stop: 11/07/18 22:54 Ondansetron HCl (Zofran) 4 mg IV NOW ONE Stop: 11/07/18 16:46 Last Admin: 11/07/18 17:12 Dose: 4 mg Ondansetron HCl (Zofran) 4 mg IV NOW ONE Stop: 11/07/18 19:42 Last Admin: 11/07/18 19:56 Dose: 4 mg Promethazine HCl (Phenadoz) 25 mg MD NOW ONE Stop: 11/07/18 19:58 Last Admin: 11/07/18 22:51 Dose: Not Given Vital Signs - 8 hr 11/07/18 15:55 11/07/18 16:30 11/07/18 18:30 Temperature 97.5 F L Pulse Rate 68 69 77 Respiratory Rate 22 13 Blood Pressure 91/66 Blood Pressure [Left Arm] 123/89 132/68 Pulse Oximetry 99 100 98 11/07/18 19:34 11/07/18 21:55 11/07/18 22:50 Temperature 97.3 F L Pulse Rate 74 77 Respiratory Rate 18 14 Blood Pressure 146/71 H Blood Pressure [Left Arm] 107/65 Pulse Oximetry 96 94 94 <Travis Rose, DO - Last Filed: 11/07/18 23:24> Orders Ordered: ED Orders 11/07/18 16:22 XR acute abdomen series Stat 11/07/18 16:27 CT head/brain wo con Stat 11/07/18 16:42 Amylase Stat Complete Blood Count AUTO DIFF Stat Comprehensive Metabolic Panel Stat Lactate (Lactic Acid) Stat Lipase Stat Procalcitonin Stat Troponin & CK Cardiac Panel Stat 11/07/18 18:16 CT abdomen pelvis w con Stat 11/07/18 18:18 Urine Microscopic Stat 11/07/18 20:12 EKG-12 Lead Stat 11/07/18 22:06 Consult to Dietitian, Adult Routine Consult to Dietitian, Adult Routine Consult to Food And Beverage Assistant Routine 11/07/18 22:07 Consult to Discharge Planning Routine Consult to Occupational Therapy Evaluate & Treat 11/07/18 22:08 Consult to Physical Therapy Evaluate & Treat 11/08/18 05:00 Basic Metabolic Panel Routine Complete Blood Count AUTO DIFF Routine Magnesium Routine Aspirin (Aspirin) 300 mg MD DAILY IMRIAN Bisacodyl (Dulcolax) 10 mg PO DAILY PRN PRN Reason: Constipation Dextrose (D50w) 25 gm IV PRN PRN; Protocol PRN Reason: Hypoglycemia Docusate Sodium (Colace) 100 mg PO BID [facility] Enoxaparin Sodium (Lovenox) 40 mg SUBCUT DAILY [facility] Sodium Chloride (Normal Saline 0.9%) 1,000 mls @ 200 mls/hr IV CONT [facility] Last Admin: 11/07/18 22:33 Dose: 200 mls/hr Levetiracetam 500 mg/ Sodium (Chloride) 105 mls @ 420 mls/hr IV Q12HR [facility] Last Admin: 11/07/18 22:48 Dose: 420 mls/hr Insulin Aspart (Novolog Flexpen) 0 unit SUBCUT ACHS [facility]; Protocol Lorazepam (Ativan) 0.5 mg IV Q6HR PRN PRN Reason: Nausea Metoprolol Tartrate (Lopressor) 5 mg IV Q6H [facility] Ondansetron HCl (Zofran) 4 mg IV Q6HR PRN PRN Reason: Nausea And Vomiting Pantoprazole Sodium (Protonix) 40 mg IV BID [facility] Last Admin: 11/07/18 22:48 Dose: 40 mg Promethazine HCl (Phenadoz) 12.5 mg MD Q6HR PRN PRN Reason: Nausea And Vomiting Sennosides (Senna) 17.2 mg PO BEDTIME [facility] Discontinued Medications Aspirin (Aspirin) 300 mg MD NOW ONE Stop: 11/07/18 22:11 Sodium Chloride (Normal Saline 0.9%) 1,000 mls @ 1,000 mls/hr IV BOLUS ONE Stop: 11/07/18 17:23 Last Infusion: 11/07/18 19:42 Dose: 0 mls/hr Admin: 11/07/18 16:35 Dose: 1,000 mls/hr Sodium Chloride (Normal Saline 0.9%) 1,000 mls @ 250 mls/hr IV CONT [facility] Last Admin: 11/07/18 22:49 Dose: Not Given Lorazepam (Ativan) 0.5 mg IV NOW ONE Stop: 11/07/18 20:44 Last Admin: 11/07/18 20:52 Dose: 0.5 mg Methylprednisolone (Solu-Medrol 125 Mg Vial) 125 mg IV NOW ONE Stop: 11/07/18 20:44 Metoclopramide HCl (Reglan) 10 mg IV NOW ONE Stop: 11/07/18 16:29 Last Admin: 11/07/18 17:12 Dose: 10 mg Mineral Oil (Mineral Oil Enema) 1 each MD NOW ONE Stop: 11/07/18 22:54 Ondansetron HCl (Zofran) 4 mg IV NOW ONE Stop: 11/07/18 16:46 Last Admin: 11/07/18 17:12 Dose: 4 mg Ondansetron HCl (Zofran) 4 mg IV NOW ONE Stop: 11/07/18 19:42 Last Admin: 11/07/18 19:56 Dose: 4 mg Promethazine HCl (Phenadoz) 25 mg MD NOW ONE Stop: 11/07/18 19:58 Last Admin: 11/07/18 22:51 Dose: Not Given Vital Signs - 8 hr 11/07/18 15:55 11/07/18 16:30 11/07/18 18:30 Temperature 97.5 F L Pulse Rate 68 69 77 Respiratory Rate 22 13 Blood Pressure 91/66 Blood Pressure [Left Arm] 123/89 132/68 Pulse Oximetry 99 100 98 11/07/18 19:34 11/07/18 21:55 11/07/18 22:50 Temperature 97.3 F L Pulse Rate 74 77 Respiratory Rate 18 14 Blood Pressure 146/71 H Blood Pressure [Left Arm] 107/65 Pulse Oximetry 96 94 94 MDM - Nausea/Vomiting/Diarrhea <Dahliayousif Oglesbymer, SOCIAL INSURANCE SPECIALIST-BC - Last Filed: 11/07/18 21:07> Lab Data Result diagrams: 11/07/18 16:42 11/07/18 16:42 Lab Results 11/07/18 11/07/18 11/07/18 Range/Units 16:42 16:42 16:42 WBC 12.5 H (4.5-11.0) X10^3/uL RBC 4.43 (4.0-5.2) X10^6/uL Hgb 12.8 (12.0-16.0) g/dL Hct 38.2 (36-46) % MCV 86.2 (80-100) fL MCH 28.9 (26-34) PG MCHC 33.5 (30-36) % RDW 15.5 H (11.6-14.8) % Plt Count 363 (150-400) X10^3/uL Neut % (Auto) 84.1 H (50-75) % Lymph % (Auto) 12.0 L (25-40) % [place] % (Auto) 2.7 L (3-14) % Eos % (Auto) 0.4 L (2-4) % Baso % (Auto) 0.8 (0-2) % Neut # (Auto) 56110 H (0383-1622) /uL Lymph # (Auto) 1500 (3635-7563) /uL [place] # (Auto) 300 (0-900) /uL Eos # (Auto) 100 (0-450) /uL Baso # (Auto) 100 (0-100) /uL Sodium 139 (137-145) mmol/L Potassium 4.6 (3.4-5.1) mmol/L Chloride 101 (98-107) mmol/L Carbon Dioxide 22 (22-32) mmol/L BUN 19 H (7-17) mg/dL Creatinine 1.00 (0.52-1.04) mg/dL Estimated GFR 56.7 L (>60) mL/min BUN/Creatinine Ratio 19.0 (6-22) Glucose 194 H (70-100) mg/dL Lactate 2.3 H (0.7-2.1) mmol/L Calcium 9.9 (8.4-10.2) mg/dL Total Bilirubin 0.9 (0.2-1.3) mg/dL AST 30 (14-36) IU/L ALT 29 (9-52) IU/L Alkaline Phosphatase 67 (38-126) U/L Total Creatine Kinase 21 L (30-135) U/L CK-MB (CK-2) TNP CK-MB (CK-2) Rel Index TNP Troponin I < 0.012 (0.01-0.034) ng/mL Total Protein 7.8 (6.3-8.2) g/dL Albumin 4.5 (3.5-5.0) g/dL Globulin 3.3 (1.7-4.1) g/dL Albumin/Globulin Ratio 1.4 (1.0-2.8) Amylase 60 (30-110) U/L Lipase 99 (23-300) U/L Procalcitonin (<0.5) ng/mL Urine RBC (0-5/HPF) Urine WBC (0-5/HPF) Ur Squamous Epith Cells (0-5/HPF) Urine Bacteria (None) Hyaline Casts (None) Urine Mucus (Negative) Ur Culture Indicated? 11/07/18 11/07/18 11/07/18 Range/Units 16:42 18:18 19:00 WBC (4.5-11.0) X10^3/uL RBC (4.0-5.2) X10^6/uL Hgb (12.0-16.0) g/dL Hct (36-46) % MCV (80-100) fL MCH (26-34) PG MCHC (30-36) % RDW (11.6-14.8) % Plt Count (150-400) X10^3/uL Neut % (Auto) (50-75) % Lymph % (Auto) (25-40) % [place] % (Auto) (3-14) % Eos % (Auto) (2-4) % Baso % (Auto) (0-2) % Neut # (Auto) (3957-5429) /uL Lymph # (Auto) (4989-4258) /uL [place] # (Auto) (0-900) /uL Eos # (Auto) (0-450) /uL Baso # (Auto) (0-100) /uL Sodium (137-145) mmol/L Potassium (3.4-5.1) mmol/L Chloride (98-107) mmol/L Carbon Dioxide (22-32) mmol/L BUN (7-17) mg/dL Creatinine (0.52-1.04) mg/dL Estimated GFR (>60) mL/min BUN/Creatinine Ratio (6-22) Glucose (70-100) mg/dL Lactate 1.3 (0.7-2.1) mmol/L Calcium (8.4-10.2) mg/dL Total Bilirubin (0.2-1.3) mg/dL AST (14-36) IU/L ALT (9-52) IU/L Alkaline Phosphatase (38-126) U/L Total Creatine Kinase (30-135) U/L CK-MB (CK-2) CK-MB (CK-2) Rel Index Troponin I (0.01-0.034) ng/mL Total Protein (6.3-8.2) g/dL Albumin (3.5-5.0) g/dL Globulin (1.7-4.1) g/dL Albumin/Globulin Ratio (1.0-2.8) Amylase (30-110) U/L Lipase (23-300) U/L Procalcitonin < 0.05 (<0.5) ng/mL Urine RBC 0-1/hpf (0-5/HPF) Urine WBC 0-1/hpf (0-5/HPF) Ur Squamous Epith Cells 0-1 /hpf (0-5/HPF) Urine Bacteria None seen (None) Hyaline Casts 0-1/lpf (None) Urine Mucus 1+ H (Negative) Ur Culture Indicated? Cult not indicated Urine Dip Bedside Urine Glucose Negative Bedside Urine Bilirubin + 1 Bedside Urine Ketone +++ 80 Urine Specific [place] 1.030 Bedside Urine Occult Blood - Negative Bedside Urine pH 5.5 Bedside Urine Protein - Negative Bedside Urine Urobilinogen - Negative Bedside Urine Nitrite - Negative Bedside Urine Leukocytes - Negative Esterase Imaging Data CT scan - abdomen: Radiologist's impression: Zahira Newman 57 F [address] [address] [address] Scan Report Signed Patient: Zahira Newman [facility]#: [id number] : 1960cct:[id number] Age/Sex: 57 / FDate of Service: 11/07/18 Loc: ED Accession Number: [id number] Procedure: CT abdomen pelvis w con Ordering Provider: Dahlia Ma SOCIAL INSURANCE SPECIALIST-BC PROCEDURE: CT ABDOMEN PELVIS W CON INDICATIONS: abd pain, elevated wbc, lactate TECHNIQUE: After the administration of intravenous contrast, 5 mm thick sections acquired from the diaphragm to the symphysis. 5 mm coronal and sagittal reformats were acquired. For radiation dose reduction, the following was used: automated exposure control, adjustment of mA and/or kV according to patient size. COMPARISON: None. FINDINGS: Image quality: Excellent. ABDOMEN: Lung bases: Lung bases are clear. Heart size is enlarged. Solid organs: Liver is normal in size and enhancement. Gallbladder demonstrates mild wall hyperemia and contains a large gallstone in the mid body. No significant pericholecystic inflammation. Biliary system is non dilated. Pancreas enhances normally. Spleen is normal in size and enhancement. Tiny fat density right adrenal nodule. Normal left adrenal gland. Kidneys demonstrate normal size and enhancement, without hydronephrosis. Peritoneum and bowel: The stomach and small bowel loops are normal. There is mild inflammatory change surrounding the proximal colon without a focal diverticulum. Normal amount of solid stool present in the transverse and descending colon. Occasional descending and sigmoid diverticula. No extraluminal gas. Normal appendix present. Nodes and vessels: No retroperitoneal or mesenteric adenopathy by size criteria. Aorta and is normal size. The inferior vena cava is mildly flattened. Miscellaneous: No ventral hernias. PELVIS: Genitourinary: Urinary bladder wall is diffusely thickened anteriorly. Uterus and ovaries appear normal. Miscellaneous: No inguinal hernias or adenopathy. Bones: No suspicious bony lesions. There is laminectomy and osseous fusion of the lower lumbosacral spine. Degenerative disc changes are present. No acute fractures. IMPRESSION: 1. Mild pericolonic inflammatory change in the proximal colon indicating colitis without perforation or abscess formation. 2. Normal appendix. 3. Anterior wall thickening of the urinary bladder. This may indicate cystitis, infectious or sterile. Correlate clinically. 4. Cholelithiasis and gallbladder wall hyperemia. No pericholecystic inflammatory changes to suggest acute cholecystitis. 5. Tiny right adrenal adenoma. Dictated by: Alisia Huitron M.D. on 11/07/2018 at 20:18 Approved by: Alisia Huitron M.D. on 11/07/2018 at 20:26 CT scan - head: Radiologist's impression: Zahira Newman 57 F 1960 [place] [address] CT Scan Report Signed Patient: Zahira Newman [facility]#: [id number] : [id number]:[id number] Age/Sex: 57 / FDate of Service: 11/07/18 Loc: ED Accession Number: [id number] Procedure: CT head/brain wo con Ordering Provider: Dahlia [facility] PROCEDURE: CT HEAD/BRAIN WO CON INDICATIONS: n/v, recent crani TECHNIQUE: Noncontrast 4.5 mm thick angled axial sections acquired from the foramen magnum to the vertex, with coronal and sagittal reformats. For radiation dose reduction, the following was used: automated exposure control, adjustment of mA and/or kV according to patient size. COMPARISON: None. FINDINGS: Image quality: Excellent. CSF spaces: Basal cisterns are patent. No definite extra-axial fluid collections. Linear area of high attenuation overlying the right frontoparietal region probably represents dural thickening. However, the possibility of a very small hemorrhage is difficult to exclude. This structure measures approximately 5 mm in maximal thickness. Ventricles are mildly prominent. Brain: No midline shift. No intracranial masses or hemorrhage. [place]-white matter interface is normal. There is a large area of low attenuation/encephalomalacia involving the right frontal parietal and temporal lobes. This is similar to the previous exam. Skull and face: Calvarium and visualized facial bones are intact, without suspicious lesions. Postoperative changes are present related to prior craniotomy. The bone flap is in appropriate position. Sinuses: Visualized sinuses and mastoids are clear. IMPRESSION: 1. Linear area of increased density overlying the right frontoparietal region underlying the bone flap probably represents dural thickening and postoperative change. However, the possibility of a subtle acute small subdural hematoma is difficult to exclude. Followup CT imaging may be of value. 2. Interval placement of the bone flap, which appears to be in appropriate position. 3. Large area of encephalomalacia overlying the right frontoparietal region is unchanged. Dictated by: Андрей Stevens M.D. on 11/07/2018 at 16:29 Approved by: Андрей Stevens M.D. on 11/07/2018 at 16:34 Chest x-ray: Radiologist's impression: [address] [address] XRay Report Signed Patient: Zahira Newman [facility]#: [id number] : 9Acct:[id number] Age/Sex: 57 / FDate of Service: 11/07/18 Loc: ED Accession Number: [id number] Procedure: XR acute abdomen series Ordering Provider: Dahlia Ma PROCEDURE: XR ACUTE ABDOMEN SERIES INDICATIONS: abd pain, n/v, constipation TECHNIQUE: One view chest and two views of the abdomen were acquired. COMPARISON: None. FINDINGS: Surgical changes and devices: None. Chest: Lungs are clear. Heart size is normal. No pleural effusions. No pneumoperitoneum. Abdomen: The no air-filled distended small bowel loops are evident. Moderate to large amount of residual stool seen throughout the colon. No suspicious calcifications. Visualized solid organ contours appear normal. Bones: No suspicious bony lesions. Mild to moderate degenerative changes of the spine and pelvic joints are present. IMPRESSION: 1. No bowel obstruction. 2. Constipation. 3. No acute cardiopulmonary process. Dictated by: Андрей Stevens M.D. on 11/07/2018 at 16:55 Approved by: Андрей Stevens M.D. on 11/07/2018 at 16:55 ECG Data Attestation: I personally reviewed and interpreted this ECG as follows: Interpretation: Sinus rhythm. Ventricular rate 79. No ectopy noted. No ST elevation or depression. MDM Narrative Medical decision making narrative: The patient is a 57-year-old female who presents with a chief complaint of nausea vomiting. She has a very complicated medical history including stroke, recent craniotomy, hypertension. The patient's x-ray illustrated constipation. Her CT scan indicates colitis. The patient was given several doses of Zofran throughout her stay in the ER. She was dry initially on presentation, so she was given IV fluid. She was also given Reglan. Phenergan suppositories ordered. IV Ativan was given. Despite all this the patient remained very nauseous and vomiting throughout her stay in the ER. Her lactate was 2.3 initially, but decreased after fluids. Her white blood cell count is 12.5. The patient repeatedly stated she could not tolerate pain medication throughout her stay in the ER. I feel as though her nausea and vomiting is likely related to the constipation. It is very suspicious that the patient's bowel medications were stopped upon discharge, and the timing of her constipation. However given that she is unable to keep down fluids I contacted our hospitalist for admission. Patient admitted to [facility]. <Travis Rose, DO - Last Filed: 11/07/18 23:24> Lab Data Lab Results 11/07/18 11/07/18 11/07/18 Range/Units 16:42 16:42 16:42 WBC 12.5 H (4.5-11.0) X10^3/uL RBC 4.43 (4.0-5.2) X10^6/uL Hgb 12.8 (12.0-16.0) g/dL Hct 38.2 (36-46) % MCV 86.2 (80-100) fL MCH 28.9 (26-34) PG MCHC 33.5 (30-36) % RDW 15.5 H (11.6-14.8) % Plt Count 363 (150-400) X10^3/uL Neut % (Auto) 84.1 H (50-75) % Lymph % (Auto) 12.0 L (25-40) % [place] % (Auto) 2.7 L (3-14) % Eos % (Auto) 0.4 L (2-4) % Baso % (Auto) 0.8 (0-2) % Neut # (Auto) 87615 H (4270-2586) /uL Lymph # (Auto) 1500 (4047-2460) /uL [place] # (Auto) 300 (0-900) /uL Eos # (Auto) 100 (0-450) /uL Baso # (Auto) 100 (0-100) /uL Sodium 139 (137-145) mmol/L Potassium 4.6 (3.4-5.1) mmol/L Chloride 101 (98-107) mmol/L Carbon Dioxide 22 (22-32) mmol/L BUN 19 H (7-17) mg/dL Creatinine 1.00 (0.52-1.04) mg/dL Estimated GFR 56.7 L (>60) mL/min BUN/Creatinine Ratio 19.0 (6-22) Glucose 194 H (70-100) mg/dL Lactate 2.3 H (0.7-2.1) mmol/L Calcium 9.9 (8.4-10.2) mg/dL Total Bilirubin 0.9 (0.2-1.3) mg/dL AST 30 (14-36) IU/L ALT 29 (9-52) IU/L Alkaline Phosphatase 67 (38-126) U/L Total Creatine Kinase 21 L (30-135) U/L CK-MB (CK-2) TNP CK-MB (CK-2) Rel Index TNP Troponin I < 0.012 (0.01-0.034) ng/mL Total Protein 7.8 (6.3-8.2) g/dL Albumin 4.5 (3.5-5.0) g/dL Globulin 3.3 (1.7-4.1) g/dL Albumin/Globulin Ratio 1.4 (1.0-2.8) Amylase 60 (30-110) U/L Lipase 99 (23-300) U/L Procalcitonin (<0.5) ng/mL Urine RBC (0-5/HPF) Urine WBC (0-5/HPF) Ur Squamous Epith Cells (0-5/HPF) Urine Bacteria (None) Hyaline Casts (None) Urine Mucus (Negative) Ur Culture Indicated? 11/07/18 11/07/18 11/07/18 Range/Units 16:42 18:18 19:00 WBC (4.5-11.0) X10^3/uL RBC (4.0-5.2) X10^6/uL Hgb (12.0-16.0) g/dL Hct (36-46) % MCV (80-100) fL MCH (26-34) PG MCHC (30-36) % RDW (11.6-14.8) % Plt Count (150-400) X10^3/uL Neut % (Auto) (50-75) % Lymph % (Auto) (25-40) % [place] % (Auto) (3-14) % Eos % (Auto) (2-4) % Baso % (Auto) (0-2) % Neut # (Auto) (4592-8398) /uL Lymph # (Auto) (5194-2375) /uL [place] # (Auto) (0-900) /uL Eos # (Auto) (0-450) /uL Baso # (Auto) (0-100) /uL Sodium (137-145) mmol/L Potassium (3.4-5.1) mmol/L Chloride (98-107) mmol/L Carbon Dioxide (22-32) mmol/L BUN (7-17) mg/dL Creatinine (0.52-1.04) mg/dL Estimated GFR (>60) mL/min BUN/Creatinine Ratio (6-22) Glucose (70-100) mg/dL Lactate 1.3 (0.7-2.1) mmol/L Calcium (8.4-10.2) mg/dL Total Bilirubin (0.2-1.3) mg/dL AST (14-36) IU/L ALT (9-52) IU/L Alkaline Phosphatase (38-126) U/L Total Creatine Kinase (30-135) U/L CK-MB (CK-2) CK-MB (CK-2) Rel Index Troponin I (0.01-0.034) ng/mL Total Protein (6.3-8.2) g/dL Albumin (3.5-5.0) g/dL Globulin (1.7-4.1) g/dL Albumin/Globulin Ratio (1.0-2.8) Amylase (30-110) U/L Lipase (23-300) U/L Procalcitonin < 0.05 (<0.5) ng/mL Urine RBC 0-1/hpf (0-5/HPF) Urine WBC 0-1/hpf (0-5/HPF) Ur Squamous Epith Cells 0-1 /hpf (0-5/HPF) Urine Bacteria None seen (None) Hyaline Casts 0-1/lpf (None) Urine Mucus 1+ H (Negative) Ur Culture Indicated? Cult not indicated Urine Dip Bedside Urine Glucose Negative Bedside Urine Bilirubin + 1 Bedside Urine Ketone +++ 80 Urine Specific [place] 1.030 Bedside Urine Occult Blood - Negative Bedside Urine pH 5.5 Bedside Urine Protein - Negative Bedside Urine Urobilinogen - Negative Bedside Urine Nitrite - Negative Bedside Urine Leukocytes - Negative Esterase Discharge Plan Departure Patient Disposition: Admitted as Observation Clinical Impression: Nausea & vomiting Qualifiers: Vomiting type: unspecified Vomiting Intractability: intractable Qualified Code(s): R11.2 - Nausea with vomiting, unspecified Discharge Date/Time: 11/07/18 21:22 Interventions: ED Discharge Assessment Last Done: 11/07/18 21:20 Admit Date/Time: 11/07/18 21:11 Admit Provider: Horace Dent <Travis Rose DO - Last Filed: 11/07/18 23:24> Cosign ED Attending Coskathrynature Attestation: I was available for consultation during this patient's emergency department encounter
[2018-11-07 16:53] LABS: Add Manual Diff / Slide Review NO; Basophils Absolute Auto 100 /uL (0-100); Basophils Percent Auto 0.8 % (0-2); Eosinophils Absolute Auto 100 /uL (0-450); Eosinophils Percent Auto 0.4 % (2-4); Hematocrit 38.2 % (36-46); Hemoglobin 12.8 g/dL (12.0-16.0); Lymphocytes Absolute Auto 1500 /uL (1100-4500); Mean Corpuscular HGB Conc 33.5 % (30-36); Mean Corpuscular Hemoglobin 28.9 PG (26-34); Mean Corpuscular Volume 86.2 fL (80-100); Monocytes Absolute Auto 300 /uL (0-900); Monocytes Percent Auto 2.7 % (3-14); Neutrophils Absolute Auto 10500 /uL (1500-7000); Neutrophils Percent Auto 84.1 % (50-75); Platelet Count 363 X10^3/uL (150-400); Red Blood Cell Count 4.43 X10^6/uL (4.0-5.2); Red Cell Distribution Width 15.5 % (11.6-14.8); White Blood Cell Count 12.5 X10^3/uL (4.5-11.0)
[2018-11-07 17:01] LABS: Lactate (Lactic Acid) 2.3 mmol/L (0.7-2.1)
[2018-11-07 17:02] LABS: Alanine Aminotransferase 29 IU/L (9-52); Albumin 4.5 g/dL (3.5-5.0); Albumin Globulin Ratio 1.4 (1.0-2.8); Alkaline Phosphatase 67 U/L (38-126); Amylase 60 U/L (30-110); Aspartate Aminotransferase 30 IU/L (14-36); Bilirubin Total 0.9 mg/dL (0.2-1.3); Blood Urea Nitrogen 19 mg/dL (7-17); Calcium 9.9 mg/dL (8.4-10.2); Carbon Dioxide 22 mmol/L (22-32); Chloride 101 mmol/L (98-107); Creatine Kinase 21 U/L (30-135); Estimated Glomerular Filt Rate 56.7 mL/min (>60); Globulin 3.3 g/dL (1.7-4.1); Glucose 194 mg/dL (70-100); Lipase 99 U/L (23-300); Potassium 4.6 mmol/L (3.4-5.1); Sodium 139 mmol/L (137-145); Total Protein 7.8 g/dL (6.3-8.2)
[2018-11-07 17:06] LABS: HEMOLYSIS 56 (0-50)
[2018-11-07] MEDS: METOCLOPRAMIDE 10 MG/2 ML INJ IV (17:12)
[2018-11-07] MEDS: ONDANSETRON 4 MG/2 ML INJ IV ×3 (17:12→23:43)
[2018-11-07 17:14] LABS: Troponin I < 0.012 ng/mL (0.01-0.034)
[2018-11-07 17:58] LABS: Procalcitonin < 0.05 ng/mL (<0.5)
--- NOTE | 2018-11-07 18:16 | DI.CT.S_ITS ---
PROCEDURE: CT ABDOMEN PELVIS W CON INDICATIONS: abd pain, elevated wbc, lactate TECHNIQUE: After the administration of intravenous contrast, 5 mm thick sections acquired from the diaphragm to the symphysis. 5 mm coronal and sagittal reformats were acquired. For radiation dose reduction, the following was used: automated exposure control, adjustment of mA and/or kV according to patient size. COMPARISON: None. FINDINGS: Image quality: Excellent. ABDOMEN: Lung bases: Lung bases are clear. Heart size is enlarged. Solid organs: Liver is normal in size and enhancement. Gallbladder demonstrates mild wall hyperemia and contains a large gallstone in the mid body. No significant pericholecystic inflammation. Biliary system is non dilated. Pancreas enhances normally. Spleen is normal in size and enhancement. Tiny fat density right adrenal nodule. Normal left adrenal gland. Kidneys demonstrate normal size and enhancement, without hydronephrosis. Peritoneum and bowel: The stomach and small bowel loops are normal. There is mild inflammatory change surrounding the proximal colon without a focal diverticulum. Normal amount of solid stool present in the transverse and descending colon. Occasional descending and sigmoid diverticula. No extraluminal gas. Normal appendix present. Nodes and vessels: No retroperitoneal or mesenteric adenopathy by size criteria. Aorta and is normal size. The inferior vena cava is mildly flattened. Miscellaneous: No ventral hernias. PELVIS: Genitourinary: Urinary bladder wall is diffusely thickened anteriorly. Uterus and ovaries appear normal. Miscellaneous: No inguinal hernias or adenopathy. Bones: No suspicious bony lesions. There is laminectomy and osseous fusion of the lower lumbosacral spine. Degenerative disc changes are present. No acute fractures. IMPRESSION: 1. Mild pericolonic inflammatory change in the proximal colon indicating colitis without perforation or abscess formation. 2. Normal appendix. 3. Anterior wall thickening of the urinary bladder. This may indicate cystitis, infectious or sterile. Correlate clinically. 4. Cholelithiasis and gallbladder wall hyperemia. No pericholecystic inflammatory changes to suggest acute cholecystitis. 5. Tiny right adrenal adenoma. Dictated by: Alisia Huitron M.D. on 11/07/2018 at 20:18 Approved by: Alisia Huitron M.D. on 11/07/2018 at 20:26
[2018-11-07 18:20] LABS: Bacteria Urine None Seen
[2018-11-07 18:30] LABS: Hyaline Casts Urine 0-1/LPF; Mucus Urine 1+ (Negative); RBC Urine 0-1/HPF (0-5/HPF); Squamous Epithelial Cell Urine 0-1 /HPF (0-5/HPF); WBC Urine 0-1/HPF (0-5/HPF)
[2018-11-07 18:31] LABS: Culture Indicated Urine Cult Not Indicated
[2018-11-07 18:46] LABS: Reflexed Lactate in 2 Hours Y
[2018-11-07 19:26] LABS: Lactate 2HR (Lactic Acid Rflx) 1.3 mmol/L (0.7-2.1)
[2018-11-07] MEDS: LORazepam 2 MG/ML INJ 0.5 MG IV ×2 (20:52→23:43)
--- NOTE | 2018-11-07 22:11 | PC.ADMIT ---
[address] Admission Note: Pt to acute care from ER. Transferred via stretcher. Dry heaving frequently. Able to answer questions on admission assessment, but unable to recall home meds, states, you will have to ask Adonay referring to spouse. Oriented to room and call light use. Denies pain. No belongings present except shirt that patient is wearing. Left shoulder has support tape present. Pt reports being wheelchair bound. The patient,Zahira Newman,57 y/o, was given written information regarding hospital policies, unit procedures and contact persons. Patient's smoking status: Never smoker. Vital Signs - 8 hr 11/07/18 15:55 11/07/18 16:30 11/07/18 18:30 Temperature 97.5 F L Pulse Rate 68 69 77 Respiratory Rate 22 13 Blood Pressure 91/66 Blood Pressure [Left Arm] 123/89 132/68 Pulse Oximetry 99 100 98 11/07/18 19:34 Temperature Pulse Rate 74 Respiratory Rate 18 Blood Pressure Blood Pressure [Left Arm] 107/65 Pulse Oximetry 96
[2018-11-07] MEDS: SODIUM CHLORIDE 0.9% 1,000 ML 200 ML IV (22:33)
[2018-11-07] MEDS: PANTOPRAZOLE 40 MG VIAL IV (22:48)
[2018-11-07] MEDS: levETIRAcetam 500 MG in SODIUM CHLORIDE 0.9% 100 ML 420 ML IV (22:48)
[2018-11-07] MEDS: MINERAL OIL 1 EACH ENEMA PR (23:50)
[2018-11-08] VITALS (7 sets, daily range): BP systolic 130–160; BP diastolic 59–79; PULSE 66–76; RESP 12–18; TEMP 36.6–37.2; O2SAT 96–100
--- NOTE | 2018-11-08 01:27 | PC.NURSE ---
2300- Pt admit for nausea/vomiting/constipation after not taking her prescribed stool softeners. New orders received by previous RN however no orders have been completed at this time. Pt writhing in pain stating her nausea is 'out of control'. DELTA Dent paged to please explain orders regarding patient. 2330- IV Ativan given for pt's inc anxiety; IV Zofran given for nausea. Order for Mineral Oil enema, Filipe in room assessing pt and if any fecal impaction exists. 2350- Edema administered. Pt states relief from nausea w/ IV medication admin. 0008- Small smear present in bedpan however, no BM. Enema fluid gushes out. Pt states she doesn't feel the urge to go, she states she is too weak to walk to [facility]. For safety reason and skin breakdown bedpan is removed. Pt asking for sleep at this time. Neuro status intact, pupils reactive to light. Pt states she knows date and situation as well as her name. Fluids running as ordered. BG 208, no orders for insulin at this time. Cont SpO2 in place as well as bilat SED's in place. 0200- Pt severely drowsy/difficult to arouse. Pupils barely reactive to light at this point, took many sternal rubs to wake pt. DELTA Dent called to come to pt's bedside. BG 208, 1 unit of insulin given per current orders. Vitals stable. Seizure pads in place. No new orders at this time. 0440- BP stable, new verbal order for fluids to change to 125 ml/hr. Pt seems more alert, pupils reactive, she is A+Ox4. States she is 'sleepy'. 0600- BG 148, 1 unit of insulin given per protocol. Pt seems more awake with questions however, still wont open her eyes.
[2018-11-08] MEDS: INSULIN ASPART 100 UNIT/ML INSULN PEN SUBCUT ×3 (02:36→18:40)
--- NOTE | 2018-11-08 03:04 | P.HP_ITS ---
History of Present Illness Date Patient Seen: 11/07/18 Time Patient Seen: 21:23 Chief complaint: vomiting Narrative: Ms. Zahira Newman is a 57-year-old female patient with a past medical history significant for intracranial bleed residual left-sided weakness, discharged from inpatient rehabilitation on 11/04/2018, seizures, diabetes, hypertension and urinary tract infection treated with Levaquin completed 2 days ago who presents to the ER today with complaints of worsening nausea vomiting. History obtained from both the patient and her Codey who is at bedside. The patient initially did began developing symptoms on 11/05/2018 that seemed to subside the following day and becoming worse since 01:30 and has been progressively worsening since. The patient initially was having bilious emesis and now is only having dry heaves. The patient was discharged from inpatient rehab for her intracranial bleed for which she underwent craniectomy with replantation for cranial bone flap on 10/20/2018. The patient is son well except for recent UTI treated with Levaquin. Patient is on routine medications including Keppra for seizures which she has been unable to take due to her naus ea vomiting prompting her presentation to the emergency department. The patient denies complaints headache, visual changes or other new concerning neurological deficits. Per Codey the patient has had her baseline level of function. She has had no for recent fevers or chills no complaints nasal congestion sore throat, chest pain shortness of breath cough or wheezing. Denies abdominal pain earlier in the day but reports epigastric discomfort secondary to persistent vomiting. Codey also states the patient had been on a bowel regimen which was not continued upon discharge from rehabilitation and has been struggling with constipation. Patient denies symptoms of dysuria or hematuria. The patient has left hemiparesis and neglect and had ongoing left shoulder pain due to decrease muscular tone following her stroke. The patient mobilizes in a wheelchair. Upon arrival in the ER the patient was found to be afebrile with a temperature 97.5? marginal blood pressure at 91/66, heart rate of 68, respiratory rate of 22 saturating 99% on room air. Patient underwent a CT scan of the head finds a large area of encephalomalacia overlying the right frontoparietal region with appearance of dural thickening consistent postoperative changes but small acute subdural hematoma is difficult to exclude per radiology report. [facility] neurology is consulted and reviewed the imaging and felt there were no acute changes. CT abdomen was also obtained which found cholelithiasis without evidence of cholecystitis, pericolonic inflammatory changes, a normal appendix and inflammatory thickening of the anterior bladder wall. ?Tiny? right adrenal adenoma is also noted. Laboratory studies the patient has minimally elevated white blood cell count of 12.5, hemoglobin of 12.8 and hematocrit of 38.2 with platelets of 363. She did have an initial lactate of 2.3 that was rechecked after 2 hours improving to 1.3. The patient was ketone positive on her urine but otherwise negative for other findings. Her electrolytes are within normal range and has a BUN of 19 and creatinine 1.0 nonfasting glucose of 194. She has a negative troponin at less than 0.12, negative amylase and lipase. Her procalcitonin is less than 0.05. At this time the patient is admitted to the hospital for intractable nausea and vomiting. Patient History Medical History (Updated 11/08/18 @ 03:47 by DELTA Anne) Chronic constipation (Acute) Depression (Acute) Diabetes mellitus type 2, noninsulin dependent (Acute) History of ST elevation myocardial infarction (STEMI) (Acute) History of UTI (Acute) History of right MCA stroke (Acute) History of seizures (Acute) Hypertension (Acute) Left spastic hemiplegia (Acute) Nerve pain (Acute) Surgical History History of cranioplasty (Acute) History of craniotomy (Acute) Status post craniectomy (Acute) Family History Father Hypertension Stroke Social History (Reviewed 11/07/18 @ 16:50 by Dahlia Ma [facility] household members: spouse and significant other Smoking Status: Never smoker alcohol intake: never Family & Social History Family History Father Hypertension Stroke Social History: household members spouse,significant other Safety & Behavioral: Feels Safe in Current Yes Environment Been Physically Hurt or No Threatened By a Person Suicidal Ideation Description None Tobacco & Substance use: Smoking Status Never smoker alcohol intake never Substance Use Type does not use Comment: The patient was just discharged from inpatient rehab on 11/04/2018 to her home where she lives with her . Her works from home and provides 24 hour care. Smoking: The patient has never smoked. Alcohol: Patient denies alcohol consumption. Substance use: Patient reports no herbal or cannabis products use. Advanced directives: In direct discussion with the patient she wishes to be FULL CODE. Her Adonay is her surrogate decision maker. Meds Home Medications Medication Instructions Recorded Confirmed Type acetaminophen 650 mg PO Q4H PRN 11/07/18 11/07/18 History amiodarone 200 mg PO BID 11/07/18 11/07/18 History aspirin 81 mg PO DAILY 11/07/18 11/07/18 History atorvastatin 40 mg PO DAILY 11/07/18 11/07/18 History bisacodyl 10 mg RI DAILY PRN 11/07/18 11/07/18 History doxazosin 1 mg PO DAILY 11/07/18 11/07/18 History enoxaparin 40 mg SUBCUT DAILY 11/07/18 11/07/18 History furosemide [Lasix] 40 mg PO DAILY 11/07/18 11/07/18 History glucagon (human recombinant) 1 mg IM Q20M PRN 11/07/18 11/07/18 History insulin glargine 25 unit SUBCUT BID 11/07/18 11/07/18 History insulin lispro [Humalog U-100 2 - 12 unit SUBCUT TID 11/07/18 11/07/18 History Insulin] levetiracetam 500 mg PO BID 11/07/18 11/07/18 History melatonin 3 mg PO BEDTIME PRN 11/07/18 11/07/18 History metoprolol succinate 12.5 mg PO DAILY 11/07/18 11/07/18 History nystatin 1 applic TOPICAL BID PRN 11/07/18 11/07/18 History polyethylene glycol 3350 [Miralax] 17 g PO DAILY 11/07/18 11/07/18 History quetiapine 25 mg PO BEDTIME PRN 11/07/18 11/07/18 History sennosides [senna] 17.2 mg PO BEDTIME 11/07/18 11/07/18 History trazodone 25 mg PO BEDTIME PRN 11/07/18 11/07/18 History white petrolatum-mineral oil 0.125 inch EYE-BOTH BEDTIME PRN 11/07/18 11/07/18 History [Artificial Tears (chel/min)] Allergies Allergy/AdvReac Type Severity Reaction Status Date / Time lisinopril Allergy Verified 11/07/18 15:55 oxycodone Allergy Verified 11/07/18 15:55 Review of Systems Review of Systems All systems reviewed & are unremarkable except as noted in HPI and below Exam Vital Signs (past 8 hours): - 11/07/18 19:34 11/07/18 21:55 11/07/18 22:50 Temperature 97.3 F L Pulse Rate 74 77 Respiratory Rate 18 14 Blood Pressure 146/71 H Blood Pressure [Left Arm] 107/65 Pulse Oximetry 96 94 94 11/07/18 23:00 11/08/18 02:15 Temperature 97.6 F 98.3 F Pulse Rate 78 76 Respiratory Rate 16 14 Blood Pressure 137/69 130/70 Blood Pressure [Left Arm] Pulse Oximetry 100 Oxygen Delivery Method Room Air Narrative Exam Narrative: GENERAL APPEARANCE: well developed, well nourished, in obvious distress with persistent vomiting HEAD: Well-healing surgical scar right parietal head, facial asymmetry with ptosis right eye EYES: pupils equal, round, reactive to light and accommodation, sclera non- icteric, extraocular movement intact with left lateral nystagmus. EARS: normal external structures, no ear pain NOSE: sinuses non tender to percussion, no rhinorrhea ORAL CAVITY: mucosa moist without lesions or exudate, palate still lives symmetrically, tongue in midline. THROAT: normal, no erythema, no exudate, pharynx normal, uvula midline. NECK/THYROID: neck supple, no jugular venous distention, no carotid bruit, no thyromegaly, trachea midline. LYMPH NODES: no cervical or supraclavicular lymphadenopathy. SKIN: warm and dry, no suspicious lesions, no rashes, good turgor. HEART: regular rate and rhythm, S1-S2 1/6 systolic murmur, no rubs or gallops, brisk capillary refill, no edema LUNGS: clear to auscultation bilaterally, no coarseness crackles or wheezing, no cough present CHEST: Symmetrical movement, no accessory muscle use, no pain to AP and lateral compression. ABDOMEN: Soft, no distention, mild generalized abdominal tenderness on palpation without guarding or peritoneal signs, no organomegaly, no flank or suprapubic tenderness, active bowel tones. BACK: Normal curvature, nontender to palpation, no CVA tenderness on percussion EXTREMITIES: Right upper extremity strength is 5/5, left upper extremity 0/5, right lower extremity 5/5 left lower extremity 0/5, hypertonicity left upper extremity, no deformities or joint effusions. NEUROLOGIC: Awake and alert and oriented for, ptosis right eye, mild dysarthria, no left shoulder shrug, left spastic hemiplegia, sensory exam reported as intact to light monofilament touch, hearing grossly normal to speech. PSYCH: alert, follows multi step directions, poor eye contact, stable behavior Objective Labs Result Diagrams: 11/07/18 16:42 11/07/18 16:42 Labs: Laboratory Results - last 24 hr 11/07/18 11/07/18 11/07/18 16:42 16:42 16:42 WBC 12.5 H RBC 4.43 Hgb 12.8 Hct 38.2 MCV 86.2 MCH 28.9 MCHC 33.5 RDW 15.5 H Plt Count 363 Neut % (Auto) 84.1 H Lymph % (Auto) 12.0 L [place] % (Auto) 2.7 L Eos % (Auto) 0.4 L Baso % (Auto) 0.8 Neut # (Auto) 75599 H Lymph # (Auto) 1500 [place] # (Auto) 300 Eos # (Auto) 100 Baso # (Auto) 100 Sodium 139 Potassium 4.6 Chloride 101 Carbon Dioxide 22 BUN 19 H Creatinine 1.00 Estimated GFR 56.7 L BUN/Creatinine Ratio 19.0 Glucose 194 H Lactate 2.3 H Calcium 9.9 Total Bilirubin 0.9 AST 30 ALT 29 Alkaline Phosphatase 67 Total Creatine Kinase 21 L CK-MB (CK-2) TNP CK-MB (CK-2) Rel Index TNP Troponin I < 0.012 Total Protein 7.8 Albumin 4.5 Globulin 3.3 Albumin/Globulin Ratio 1.4 Amylase 60 Lipase 99 Procalcitonin Urine RBC Urine WBC Ur Squamous Epith Cells Urine Bacteria Hyaline Casts Urine Mucus Ur Culture Indicated? 11/07/18 11/07/18 11/07/18 16:42 18:18 19:00 WBC RBC Hgb Hct MCV MCH MCHC RDW Plt Count Neut % (Auto) Lymph % (Auto) [place] % (Auto) Eos % (Auto) Baso % (Auto) Neut # (Auto) Lymph # (Auto) [place] # (Auto) Eos # (Auto) Baso # (Auto) Sodium Potassium Chloride Carbon Dioxide BUN Creatinine Estimated GFR BUN/Creatinine Ratio Glucose Lactate 1.3 Calcium Total Bilirubin AST ALT Alkaline Phosphatase Total Creatine Kinase CK-MB (CK-2) CK-MB (CK-2) Rel Index Troponin I Total Protein Albumin Globulin Albumin/Globulin Ratio Amylase Lipase Procalcitonin < 0.05 Urine RBC 0-1/hpf Urine WBC 0-1/hpf Ur Squamous Epith Cells 0-1 /hpf Urine Bacteria None seen Hyaline Casts 0-1/lpf Urine Mucus 1+ H Ur Culture Indicated? Cult not indicated Assessment & Plan Assessment & Plan narrative: 1. Acute Intractable nausea and vomiting, present on admission -onset of symptoms 2 days prior to admission, day prior to admission symptoms improved and worsened again. -patient unable to keep down fluid or medications. -in the ER the patient received Phenergan, Zofran, Reglan, Ativan and IV fluid bolus without improvement. -continue Zofran 4 mg every 6 hours as needed, Phenergan 12.5 mg every 6 hours as needed and Ativan 0.5 mg every 6 hours as needed. -normal saline 200 mL/hr 6 hours then decrease to 125 mL/hr. 2. Right MCA territory CVA, stable. -patient sustained acute large territory MCA stroke on 08/25/2018 while admitted at [facility] for pneumonia and UTI. -patient transferred to [facility] and underwent craniectomy and temporal lobectomy related to cerebral edema. -patient with residual dense spastic left hemiparesis and left shoulder pain. -patient transferred to inpatient rehab where she was moderate assist for transfers and max assist to ambulate. Discharged to home 11/04/2018. -PT and OT to consult and treat. -Keppra 500 mg IV twice daily. -seizure precautions -lorazepam 1 mg IV as needed for seizures. -will obtain medical records to assess the ability to obtain MRI of head. 3. Coronary artery disease, stable -patient with history of ventricular tachycardia NSTEMI while at [facility]. -patient has been on amiodarone 200 mg daily and metoprolol succinate 12.5 mg daily -at this time will hold amiodarone, metoprolol 5 mg IV every 6 hours to hold for heart rate less than 60 and blood pressure less than 140. Will keep higher blood pressure target until neurological event is ruled out. 4. Type 2 diabetes, insulin-dependent, active, presumed stable. -home medications include Lantus 25 units every 12 hours and lispro sliding scale for correctional dosing. -fingerstick glucose checks every 6 hours -correctional insulin low-dose scale. -obtain hemoglobin A1c. 5. Chronic constipation, active. -patient's bowel regimen not continued on discharge instructions from rehabilitation. No complaints of abdominal pain unknown date of last BM. -imaging identifies pericolonic inflammation without fluid or abscess, normal appendix, constipation with stool load. -no elevation of white blood cell count, procalcitonin is negative at less than 0.05. -large stool in rectal vault broken up manually but unable to evacuate. -mineral oil enema then restart bowel program. -Doculax suppository daily, senna suppository as needed, MiraLax 17 g by mouth 1 taking oral fluids. The patient admitted to the hospital related to the severity of her symptoms and risk for complications and adverse events. Patient is admitted as observation with expected length of stay to be less than 2 midnights. Time Spent With Patient Time with patient: Greater than 35 minutes Scores GCS Gays coma scale eye opening: Spontaneous Gays coma scale verbal response: Orientated [place] coma scale motor response: Obey commands Cris coma scale total score: 15
[2018-11-08 06:09] LABS: Add Manual Diff / Slide Review NO; Basophils Absolute Auto 0 /uL (0-100); Basophils Percent Auto 0.5 % (0-2); Eosinophils Absolute Auto 0 /uL (0-450); Hematocrit 33.3 % (36-46); Hemoglobin 11.2 g/dL (12.0-16.0); Lymphocytes Absolute Auto 1500 /uL (1100-4500); Lymphocytes Percent Auto 14.2 % (25-40); Mean Corpuscular HGB Conc 33.6 % (30-36); Mean Corpuscular Hemoglobin 28.8 PG (26-34); Mean Corpuscular Volume 85.9 fL (80-100); Monocytes Absolute Auto 600 /uL (0-900); Monocytes Percent Auto 5.5 % (3-14); Neutrophils Absolute Auto 8200 /uL (1500-7000); Neutrophils Percent Auto 79.8 % (50-75); Platelet Count 281 X10^3/uL (150-400); Red Blood Cell Count 3.87 X10^6/uL (4.0-5.2); Red Cell Distribution Width 15.3 % (11.6-14.8); White Blood Cell Count 10.3 X10^3/uL (4.5-11.0)
[2018-11-08 06:23] LABS: Hemoglobin A1C% w Est Avg Glu 6.4 % (4.0-6.0)
[2018-11-08 06:24] LABS: BUN Creatinine Ratio 21.7 (6-22); Blood Urea Nitrogen 13 mg/dL (7-17); Calcium 8.6 mg/dL (8.4-10.2); Carbon Dioxide 23 mmol/L (22-32); Chloride 106 mmol/L (98-107); Estimated Glomerular Filt Rate > 60.0 mL/min (>60); Glucose 145 mg/dL (70-100); HEMOLYSIS < 15 (0-50); Magnesium 1.7 mg/dL (1.6-2.3); Potassium 3.3 mmol/L (3.4-5.1); Sodium 138 mmol/L (137-145)
[2018-11-08] MEDS: SODIUM CHLORIDE 0.9% 1,000 ML 200 ML IV (06:30)
[2018-11-08] MEDS: POTASSIUM CHLORIDE 40 MEQ in SODIUM CHLORIDE 0.9% 500 ML 130 ML IV (06:47)
[2018-11-08] MEDS: PANTOPRAZOLE 40 MG VIAL IV ×2 (10:27→20:44)
[2018-11-08] MEDS: levETIRAcetam 500 MG in SODIUM CHLORIDE 0.9% 100 ML 420 ML IV ×2 (10:27→22:34)
[2018-11-08] MEDS: ENOXAPARIN 40 MG/0.4 ML SYRINGE SUBCUT (10:28)
[2018-11-08] MEDS: DOXAZOSIN 2 MG TABLET 1 MG PO (10:43)
[2018-11-08] MEDS: DOCUSATE 100 MG CAPSULE PO (10:44)
[2018-11-08] MEDS: ATORVASTATIN 20 MG TABLET 40 MG PO (10:53)
[2018-11-08] MEDS: ONDANSETRON 4 MG/2 ML INJ IV ×2 (11:15→17:43)
[2018-11-08] MEDS: BISACODYL 5 MG TABLET 10 MG PO (11:16)
--- NOTE | 2018-11-08 12:03 | PT.IPTN ---
Physical Therapy Treatment Note M3 PT-IP Subjective Start: 11/08/18 12:03 Freq: NEEDED Status: Active Protocol: Document 11/08/18 12:03 IJS (Rec: 11/08/18 12:03 IJS [id number]) Subjective Physical Therapy Visit Type Notes Per MD hold evaluation today until the patient is more alert.
[2018-11-08] MEDS: METOCLOPRAMIDE 10 MG/2 ML INJ 5 MG IV ×2 (12:23→19:33)
--- NOTE | 2018-11-08 12:28 | PM.PN.1 ---
Subjective Date Patient Seen: 11/08/18 Interval history: The patient is a 57-year-old female who was admitted to hospital for intractable nausea and vomiting. Per discussion with her the patient has had nausea and vomiting for about 10 days. Initially they felt that the vomiting was related to her urinary tract infection. The patient completed her course of antibiotics yesterday and repeat UA is negative. She continues to be nauseated today. She also has vomiting. She is somewhat slow to respond and is withdrawn. Her notes that since she has decreased her Seroquel her mood has changed. She appears to be focused on her nausea. She seems more withdrawn and less conversant per her . The patient was discharged from rehab on Remeron. She also was on trazodone at night for sleeping. She did have a small bowel movement yesterday as constipation has been a recurrent problem for her as well. Her also reports that since starting the Keppra she has had changes in her mood. Associated with the nausea. Importantly the patient was found to have a markedly elevated glycohemoglobin upon admission to [facility]. She has been maintained on her metformin at home. Exam Vital Signs (past 8 hours): - 11/08/18 04:40 11/08/18 08:00 Temperature 97.8 F Pulse Rate 74 Respiratory Rate 12 Blood Pressure 130/68 130/69 Pulse Oximetry 100 Oxygen Delivery Method Room Air Narrative Exam Narrative: Ill-appearing female lying in bed nauseated HEENT: Well-healed surgical incision along the right frontal parietal scalp, 2nd incision along the parietal area well-healed as well Lungs: Clear to auscultation Cardiac exam: Regular rate and rhythm normal S1-S2 Abdomen: Soft and nontender nondistended without palpable mass, board-like rigidity, or rebound tenderness Extremities: No edema Objective Labs Result Diagrams: 11/08/18 05:48 11/08/18 05:48 Labs: Laboratory Results - last 24 hr 11/07/18 11/07/18 11/07/18 16:42 16:42 16:42 WBC 12.5 H RBC 4.43 Hgb 12.8 Hct 38.2 MCV 86.2 MCH 28.9 MCHC 33.5 RDW 15.5 H Plt Count 363 Neut % (Auto) 84.1 H Lymph % (Auto) 12.0 L [place] % (Auto) 2.7 L Eos % (Auto) 0.4 L Baso % (Auto) 0.8 Neut # (Auto) 97620 H Lymph # (Auto) 1500 [place] # (Auto) 300 Eos # (Auto) 100 Baso # (Auto) 100 Sodium 139 Potassium 4.6 Chloride 101 Carbon Dioxide 22 BUN 19 H Creatinine 1.00 Estimated GFR 56.7 L BUN/Creatinine Ratio 19.0 Glucose 194 H Hemoglobin A1c Lactate 2.3 H Calcium 9.9 Magnesium Total Bilirubin 0.9 AST 30 ALT 29 Alkaline Phosphatase 67 Total Creatine Kinase 21 L CK-MB (CK-2) TNP CK-MB (CK-2) Rel Index TNP Troponin I < 0.012 Total Protein 7.8 Albumin 4.5 Globulin 3.3 Albumin/Globulin Ratio 1.4 Amylase 60 Lipase 99 Procalcitonin Urine RBC Urine WBC Ur Squamous Epith Cells Urine Bacteria Hyaline Casts Urine Mucus Ur Culture Indicated? 11/07/18 11/07/18 11/07/18 16:42 18:18 19:00 WBC RBC Hgb Hct MCV MCH MCHC RDW Plt Count Neut % (Auto) Lymph % (Auto) [place] % (Auto) Eos % (Auto) Baso % (Auto) Neut # (Auto) Lymph # (Auto) [place] # (Auto) Eos # (Auto) Baso # (Auto) Sodium Potassium Chloride Carbon Dioxide BUN Creatinine Estimated GFR BUN/Creatinine Ratio Glucose Hemoglobin A1c Lactate 1.3 Calcium Magnesium Total Bilirubin AST ALT Alkaline Phosphatase Total Creatine Kinase CK-MB (CK-2) CK-MB (CK-2) Rel Index Troponin I Total Protein Albumin Globulin Albumin/Globulin Ratio Amylase Lipase Procalcitonin < 0.05 Urine RBC 0-1/hpf Urine WBC 0-1/hpf Ur Squamous Epith Cells 0-1 /hpf Urine Bacteria None seen Hyaline Casts 0-1/lpf Urine Mucus 1+ H Ur Culture Indicated? Cult not indicated 11/08/18 11/08/18 11/08/18 05:48 05:48 05:48 WBC 10.3 RBC 3.87 L Hgb 11.2 L Hct 33.3 L MCV 85.9 MCH 28.8 MCHC 33.6 RDW 15.3 H Plt Count 281 Neut % (Auto) 79.8 H Lymph % (Auto) 14.2 L [place] % (Auto) 5.5 Eos % (Auto) 0.0 L Baso % (Auto) 0.5 Neut # (Auto) 8200 H Lymph # (Auto) 1500 [place] # (Auto) 600 Eos # (Auto) 0 Baso # (Auto) 0 Sodium 138 Potassium 3.3 L D Chloride 106 Carbon Dioxide 23 BUN 13 Creatinine 0.60 Estimated GFR > 60.0 BUN/Creatinine Ratio 21.7 Glucose 145 H Hemoglobin A1c 6.4 H Lactate Calcium 8.6 Magnesium 1.7 Total Bilirubin AST ALT Alkaline Phosphatase Total Creatine Kinase CK-MB (CK-2) CK-MB (CK-2) Rel Index Troponin I Total Protein Albumin Globulin Albumin/Globulin Ratio Amylase Lipase Procalcitonin Urine RBC Urine WBC Ur Squamous Epith Cells Urine Bacteria Hyaline Casts Urine Mucus Ur Culture Indicated? Assessment & Plan Assessment & Plan narrative: 1. 57-year-old female admitted to the hospital for recurrent nausea and vomiting. Abdominal CT obtain last evening showed mild colitis, there was a large gallstones seen, hyperemia of the gallbladder, but no findings it to suggest acute cholecystitis. The patient continues to have persistent nausea and vomiting. She has burping and belching as well. Differential diagnosis includes 1. Diabetic gastroparesis, gastroesophageal reflux disease, gastritis. Plan will continue IV hydration, will decrease the volume given her history of congestive heart failure, will also obtain a solid food gastric emptying study tomorrow. In addition the patient will be placed on Reglan as needed for her nausea. 2. 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 Patient has been maintained on Keppra 500 b.i.d.. It appears that since starting the Keppra her mood has been decreased somewhat withdrawn and not her baseline. Will discuss with neuro surgery tomorrow whether an alternative anticonvulsant can be considered instead of Keppra. 3. Recent myocardial infarction. Will continue her metoprolol, statin, and baby aspirin went she is able to manage p.o. intake 4. History of ventricular tachycardia associated with myocardial infarction will continue amiodarone at 200 mg per day. 5. Type 2 diabetes normally maintained on metformin will continue basal bolus insulin here in the home and hold her metformin 6. Urinary retention will continue temp slow Son when she can take oral intake 7. Chronic constipation will continue her usual bowel regimen 8. Depression. Will resume her Remeron trazodone at night hold Seroquel at this time 9. Hypertension will continue metoprolol 10. Hypokalemia replace
[2018-11-08] MEDS: LORazepam 2 MG/ML INJ 0.5 MG IV (12:42)
[2018-11-08] MEDS: KCL 20 MEQ IN NS 1,000 ML 84 MEQ IV ×2 (12:42→23:53)
--- NOTE | 2018-11-08 14:48 | CM.DANOTE ---
DCP/Assessment: Reviewed chart. Patient is a 57yr old female admitted to [facility] with n/v. PCP listed is Dr. Pichardo. Primary payor is 1) out of [facility]. Met with patient and family which included spouse/Adonay and daughter/Estrella at bedside. Patient sound asleep at time of visit. Spouse reports that patient discharged from [facility] inpatient rehab on 11-04-18. Patient was being treated after having intracranial bleed causing left sided weakness. Patient underwent craniectomy with replantation for cranial bone flop on 10-20-18. Spouse reports that patient is w/c bound at baseline. Current plan is for patient to discharge home when medically stable. Spouse reports that the residence is set up for patient. Spouse is primary caregiver. Spouse reports that they had been set up with [facility] for PT/OT,it was scheduled to start this upcoming week. Spouse does not want those services cancelled and ORGANIZATION DEVELOPMENT CONSULTANT offered to call to let them know patient is at [facility] Spouse appreciative. Orders will need to be obtained to resume HH prior to d/c. Spouse also requesting that RN be added. ORGANIZATION DEVELOPMENT CONSULTANT called [facility] and left notifying them that patient at [facility] At this time d/c date and needs unknown. Spouse does reiterate that he can care for patient at home and he has been planning to. P: Pending. Anticipate home with resume HH services with [facility]. CM team to follow closely. Therapy evaluation pending. MARCELO Block Discharge Planning/Care Management CM Discharge Assessment Start: 11/08/18 14:33 Freq: Status: Active Protocol: Document 11/08/18 14:34 KJS (Rec: 11/08/18 14:48 [id number]) Discharge Planning Assessment Assigned Set Up Operator Tool MARCELO Block Contact Information Adonay Newman (spouse) [phone] Advance Directives? No History Provided By Patient Family Member Significant Other Medical Record Prior Living Arrangements House Household Members spouse significant other Type of transporation used prior to Relies on Others admit Independent with ADL's No Is patient alert and oriented? Pending bedside assessment Needs Assistance With Bathing Grooming Meal Prep Toileting Managing Medications Home Chores / Shopping Caregiver for Another No DME Already Rented / Owned Wheelchair Patient/Family Preference Home with Home Health Discharge Plan Home Transportation Arrangement Family vs. cabulance vs. non- urgent BLS Referrals Initiated Home Health SNF/HH [facility]ference [facility] [place] [phone] Whiteboard Updated in Patient Room with Yes name and ext. # of Set Up Operator Tool Review Status In Process Next Review Type Continued Stay Review
--- NOTE | 2018-11-08 15:58 | PC.NURSE ---
GI: Nausea an issue most of shift, received zofran and protonix with little relief, had about an hour of continuous nausea and retching, dry heaves, saying she didnt feel well. Unable to take fluids, not bringing anything up. Dr. mckinney here and spoke with spouse. He had numerous concerns and questions about his for her. Pt then given reglan which didn't help and then ativan for the nausea and finally she was able to get some relief and has been dozing since then. Spouse is concerned about pt's continous nausea but he feels md has answered most of his questions. Hopefully will feel better. Cont w/poc.
[2018-11-08] MEDS: LORazepam 2 MG/ML INJ 1 MG IV ×3 (16:22→22:33)
[2018-11-08] MEDS: TRAZODONE 50 MG TABLET PO (20:40)
[2018-11-08] MEDS: METOPROLOL TARTRATE 5 MG/5 ML INJ IV (20:42)
--- NOTE | 2018-11-08 23:31 | PC.NURSE ---
Evening note: Zahira arouses to voice, having unrelenting nausea/dry heaves off & on tonight. Told nurse the only med that helped relieve nausea/dry heaves earlier is the Ativan. Ativan 1 mg given as ordered by request when patient actively dry heaving. At 2034 I was going to give another dose but patient not answering all questions appropriately at that time, appeared very sedated, unable to take oral stool softeners because she was not awake enough to follow direction for mouth swab/oral care. Daughter at bedside, also said Zahira seemed out of it. Since that time patient more awake, starting to dry heave again, Ativan given at 2234. Patient able to use bedpan to void previously this evening, now unable to void & denies urge to void. Bladder scan 643 ml around 2029. I spoked to Alin SORENSON about my concerns of continued nausea/dry heaving, Ativan as well as urinary retention. He ordered to do straight cath. Straight cath complete at 2254 with 800 ml clear yellow urine output. Pt tolerated well, daughter present for procedure. She told me that Zahira has needed straight caths intermittently at [facility] rehab and at home once.
[2018-11-09] MEDS: ONDANSETRON 4 MG/2 ML INJ IV ×2 (00:12→10:00)
[2018-11-09] MEDS: METOCLOPRAMIDE 10 MG/2 ML INJ 5 MG IV ×2 (01:31→09:59)
[2018-11-09] MEDS: LORazepam 2 MG/ML INJ 1 MG IV ×4 (01:31→15:00)
[2018-11-09] MEDS: METOPROLOL TARTRATE 5 MG/5 ML INJ IV ×2 (03:48→21:36)
[2018-11-09 03:49] VITALS: BP 152/87; PULSE 76; RESP 16; TEMP 36.9; O2SAT 96
[2018-11-09 06:24] LABS: Add Manual Diff / Slide Review NO; Basophils Absolute Auto 100 /uL (0-100); Basophils Percent Auto 0.7 % (0-2); Eosinophils Absolute Auto 0 /uL (0-450); Eosinophils Percent Auto 0.2 % (2-4); Hematocrit 35.7 % (36-46); Hemoglobin 12.1 g/dL (12.0-16.0); Lymphocytes Absolute Auto 1400 /uL (1100-4500); Lymphocytes Percent Auto 13.1 % (25-40); Mean Corpuscular Hemoglobin 28.9 PG (26-34); Mean Corpuscular Volume 85.1 fL (80-100); Monocytes Absolute Auto 500 /uL (0-900); Monocytes Percent Auto 4.3 % (3-14); Neutrophils Absolute Auto 9000 /uL (1500-7000); Neutrophils Percent Auto 81.7 % (50-75); Platelet Count 269 X10^3/uL (150-400); Red Cell Distribution Width 15.4 % (11.6-14.8)
[2018-11-09 06:36] LABS: Alanine Aminotransferase 20 IU/L (9-52); Albumin Globulin Ratio 1.4 (1.0-2.8); Alkaline Phosphatase 53 U/L (38-126); Aspartate Aminotransferase 23 IU/L (14-36); Bilirubin Total 0.7 mg/dL (0.2-1.3); Blood Urea Nitrogen 9 mg/dL (7-17); Calcium 8.7 mg/dL (8.4-10.2); Carbon Dioxide 23 mmol/L (22-32); Chloride 98 mmol/L (98-107); Estimated Glomerular Filt Rate > 60.0 mL/min (>60); Globulin 2.9 g/dL (1.7-4.1); Glucose 152 mg/dL (70-100); HEMOLYSIS 45 (0-50); Potassium 3.3 mmol/L (3.4-5.1); Sodium 134 mmol/L (137-145); Total Protein 6.9 g/dL (6.3-8.2)
[2018-11-09] MEDS: INSULIN ASPART 100 UNIT/ML INSULN PEN SUBCUT ×3 (06:50→18:35)
[2018-11-09] MEDS: BISACODYL 10 MG SUPP PR (06:51)
--- NOTE | 2018-11-09 07:31 | PC.NURSE ---
Pt bladder scanned at 0545 for 800mL; Provider Horace Dent notified and ordered and in & out straight cath. 1,000mL clear yellow urine out. Pt very somnolent. Hard to get her to converse with you. FS q6h, blood sugars unremarkable. Ativan 1mg given for dry heaving. B/L SCDs on. IVF continued as ordered. T&P q2h. Tele NSR Dulcolax suppository given this morning for constipation
[2018-11-09] MEDS: POTASSIUM CHLORIDE 40 MEQ in SODIUM CHLORIDE 0.9% 500 ML 130 ML IV (07:32)
[2018-11-09 07:35] VITALS: BP 112/67; PULSE 67; RESP 16; TEMP 36.8; O2SAT 95
--- NOTE | 2018-11-09 08:20 | PT-IP ANOTE ---
Per chart review, pt is still either dry heaving or relatively sedated on Ativan. Will allow for continued medical management to improve pt's overall status prior to PT eval.
[2018-11-09] MEDS: ENOXAPARIN 40 MG/0.4 ML SYRINGE SUBCUT (09:51)
[2018-11-09] MEDS: levETIRAcetam 500 MG in SODIUM CHLORIDE 0.9% 100 ML 420 ML IV (09:52)
[2018-11-09] MEDS: TAMSULOSIN 0.4 MG CAPSULE PO (09:52)
[2018-11-09] MEDS: PANTOPRAZOLE 40 MG VIAL IV ×2 (09:52→21:36)
--- NOTE | 2018-11-09 10:21 | DIET.PN ---
Dietary Progress Note Assessment: 57y F consulted to RD re MNA score- 9 (at risk) c intractable nausea and vomiting. Pt family notably frustrated, report pt has been here since 11/07 and seems to be worse (dry heaving, nausea) they have tried everything. Family reports nausea, vomiting past 10d c little PO food or fluid during that time. Abdominal CT obtain last evening showed mild colitis, there was a large gallstones seen, hyperemia of the gallbladder, but no findings it to suggest acute cholecystitis. The patient continues to have persistent nausea and vomiting. She has burping and belching as well. Differential diagnosis includes 1. Diabetic gastroparesis, gastroesophageal reflux disease, gastritis. Pt had suppository last night, has had 5 BMs since this am per RN. Scheduled for endoscopy, results will determine diet order. Med hx: Pt 2.5mo s/p stroke c ongoing complications, DM2, chronic constipation. HT: 162.5cm WT: 66.1kg BMI: 25 Labs: BG 145-192 (H); A1c 6.4 (H); K+ 3.3 (L) Nutrition Diagnosis: Severe acute PCM r/t acute illness (intractable nausea/vomiting) complicated by recent stroke aeb no measurable PO intake (fluid/food) for 12d, GI symptoms >10d (nausea, vomiting), 3.5% wt loss in 1w (severe), and mild subcutaneous fat and muscle loss in temples, clavicle, femur. Interventions: Diet order pending endoscopy and swallow study Monitoring/Evaluations: following daily until stable; diet order, tolerance, POs, wt, associated labs
--- NOTE | 2018-11-09 10:54 | PC.NURSE ---
Day shift: Per Pt's spouse he does not want Pt to have an indwelling cath placed. It sets her back and she has to retrain. He stated. Informed family that Pt will have swallow study tomorrow at approx noon.
--- NOTE | 2018-11-09 11:06 | PM.PN.1 ---
Subjective Date Patient Seen: 11/09/18 Interval history: Patient is a 57-year-old female who was admitted to the hospital for recurrent nausea and vomiting inability to eat with anorexia for the last 10 days the patient's nausea vomiting seemed to improve yesterday. However this morning she was again nauseated and vomiting. She denies any pain per se. She has no shortness of breath. She apparently was up late last night and early this morning and is somewhat lethargic. However she would like to get up to a chair at this time. The patient had poor urine output last evening. She had a bladder scan which revealed significant urine and a catheter was placed arrangements are being made for a solid food gastric emptying study tomorrow. In the interim will continue with physical therapy and occupational therapy. I have spoke to the neurosurgical group at [facility]. They recommend continuing the IV Keppra for a total of 6 weeks postoperatively. She should be seen in clinic November 29 and they will adjust the medications at that time. The patient continues to have significant belching and burping. But she has had no imminent hematemesis per se. Exam Vital Signs (past 8 hours): - 11/09/18 03:49 11/09/18 07:35 Temperature 98.5 F 98.2 F Pulse Rate 76 67 Respiratory Rate 16 16 Blood Pressure 152/87 H 112/67 Pulse Oximetry 96 95 Oxygen Delivery Method Room Air Oxygen Flow Rate 0 Narrative Exam Narrative: Ill appearing female lying in bed HEENT: Well-healed surgical scars over the a frontal parietal lobe and parietal scalp area no oozing or erythema Lungs: Decreased breath sounds but clear to auscultation Cardiac exam regular rate rhythm normal S1-S2 Abdomen: Soft nontender nondistended Extremities: No edema Neuro exam patient has a dense left hemiparesis. She is somewhat lethargic but arousable. She has minimal conversation at this time. Objective Labs Result Diagrams: 11/09/18 06:10 11/09/18 06:10 Labs: Laboratory Results - last 24 hr 11/09/18 11/09/18 06:10 06:10 WBC 11.0 RBC 4.20 Hgb 12.1 Hct 35.7 L MCV 85.1 MCH 28.9 MCHC 34.0 RDW 15.4 H Plt Count 269 Neut % (Auto) 81.7 H Lymph % (Auto) 13.1 L [place] % (Auto) 4.3 Eos % (Auto) 0.2 L Baso % (Auto) 0.7 Neut # (Auto) 9000 H Lymph # (Auto) 1400 [place] # (Auto) 500 Eos # (Auto) 0 Baso # (Auto) 100 Sodium 134 L Potassium 3.3 L Chloride 98 Carbon Dioxide 23 BUN 9 Creatinine 0.50 L Estimated GFR > 60.0 BUN/Creatinine Ratio 18.0 Glucose 152 H Calcium 8.7 Total Bilirubin 0.7 AST 23 ALT 20 Alkaline Phosphatase 53 Total Protein 6.9 Albumin 4.0 Globulin 2.9 Albumin/Globulin Ratio 1.4 Assessment & Plan Assessment & Plan narrative: 1. 57-year-old female admitted to the hospital with recurrent nausea and vomiting. She has a history of type 2 diabetes. Her diabetes was poorly controlled as evidenced by an elevated hemoglobin A1c of 13.4 in August of this year. She is normally maintained on metformin at home. She is getting basal bolus insulin here in the hospital. Given her recurrent symptoms of nausea and vomiting the patient will have a solid food gastric emptying study for tomorrow. The isotope is available and she will undergo the study then. Medications will be adjusted to defer interference with her exam. If the patient's study is unremarkable would consider further workup to include upper endoscopy to evaluate for additional pathology. 2. Type 2 diabetes, suboptimal control, continue basal bolus insulin 3. Status post craniectomy and cranioplasty, follow up with Neurosurgery as scheduled end of November 4. Recent myocardial infarction, will continue her aspirin statin and beta-asha 5. Ventricular cachectic cardia in the setting of an acute [place], continue amiodarone, patient is NPO at this time in the [place] has been held. If she is unable to eat starting tomorrow may consider feeding tube placement for medications and nourished 6. Malnutrition, will ask dietary to evaluate 7. Urinary retention this was a recurrent problem while at [facility] patient has been placed back on her bethanechol and tamsulosin. Will continue to monitor closely 8. Constipation, will continue aggressive bowel program
--- NOTE | 2018-11-09 11:12 | P.PN_ITS ---
Subjective Date Patient Seen: 11/09/18 Interval history: Patient is a 57-year-old female who was [facility] for recurrent nausea and vomiting inability to eat with anorexia for the last 10 days the patient's nausea vomiting seemed to improve yesterday. However this morning she was again nauseated and vomiting. She denies any pain per se. She has no shortness of breath. She apparently was up late last night and early this morning and is somewhat lethargic. However she would like to get up to a chair at this time. The patient had poor urine output last evening. She had a bladder scan which revealed significant urine and a catheter was placed arrangements are being made for a solid food gastric emptying study tomorrow. In the interim will continue with physical therapy and occupational therapy. I have spoke to the neurosurgical group at [facility]. They recommend continuing the IV Keppra for a total of 6 weeks postoperatively. She should be seen in clinic November 29 and they will adjust the medications at that time. The patient continues to have significant belching and burping. But she has had no imminent hematemesis per se. Exam Vital Signs (past 8 hours): - 11/09/18 03:49 11/09/18 07:35 Temperature 98.5 F 98.2 F Pulse Rate 76 67 Respiratory Rate 16 16 Blood Pressure 152/87 H 112/67 Pulse Oximetry 96 95 Oxygen Delivery Method Room Air Oxygen Flow Rate 0 Narrative Exam Narrative: Ill appearing female lying in bed HEENT: Well-healed surgical scars over the a frontal parietal lobe and parietal scalp area no oozing or erythema Lungs: Decreased breath sounds but clear to auscultation Cardiac exam regular rate rhythm normal S1-S2 Abdomen: Soft nontender nondistended Extremities: No edema Neuro exam patient has a dense left hemiparesis. She is somewhat lethargic but arousable. She has minimal conversation at this time. Objective Labs Result Diagrams: 11/09/18 06:10 11/09/18 06:10 Labs: Laboratory Results - last 24 hr 11/09/18 11/09/18 06:10 06:10 WBC 11.0 RBC 4.20 Hgb 12.1 Hct 35.7 L MCV 85.1 MCH 28.9 MCHC 34.0 RDW 15.4 H Plt Count 269 Neut % (Auto) 81.7 H Lymph % (Auto) 13.1 L [place] % (Auto) 4.3 Eos % (Auto) 0.2 L Baso % (Auto) 0.7 Neut # (Auto) 9000 H Lymph # (Auto) 1400 [place] # (Auto) 500 Eos # (Auto) 0 Baso # (Auto) 100 Sodium 134 L Potassium 3.3 L Chloride 98 Carbon Dioxide 23 BUN 9 Creatinine 0.50 L Estimated GFR > 60.0 BUN/Creatinine Ratio 18.0 Glucose 152 H Calcium 8.7 Total Bilirubin 0.7 AST 23 ALT 20 Alkaline Phosphatase 53 Total Protein 6.9 Albumin 4.0 Globulin 2.9 Albumin/Globulin Ratio 1.4 Assessment & Plan Assessment & Plan narrative: 1. 57-year-old female admitted to the hospital with recurrent nausea and vomiting. She has a history of type 2 diabetes. Her diabetes was poorly controlled as evidenced by an elevated hemoglobin A1c of 13.4 in August of this year. She is normally maintained on metformin at home. She is getting basal bolus insulin here in the hospital. Given her recurrent symptoms of nausea and vomiting the patient will have a solid food gastric emptying study for tomorrow. The isotope is available and she will undergo the study then. Medications will be adjusted to defer interference with her exam. If the patient's study is unremarkable would consider further workup to include upper endoscopy to evaluate for additional pathology. 2. Type 2 diabetes, suboptimal control, continue basal bolus insulin 3. Status post craniectomy and cranioplasty, follow up with Neurosurgery as scheduled end of November 4. Recent myocardial infarction, will continue her aspirin statin and beta- asha 5. Ventricular cachectic cardia in the setting of an acute [place], continue amiodarone, patient is NPO at this time in the [place] has been held. If she is unable to eat starting tomorrow may consider feeding tube placement for medications and nourished 6. Malnutrition, will ask dietary to evaluate 7. Urinary retention this was a recurrent problem while at [facility] patient has been placed back on her bethanechol and tamsulosin. Will continue to monitor closely 8. Constipation, will continue aggressive bowel program
[2018-11-09 11:20] VITALS: BP 122/75; PULSE 74; RESP 14; TEMP 36.6; O2SAT 98
[2018-11-09] MEDS: KCL 20 MEQ IN NS 1,000 ML 84 MEQ IV ×2 (12:04→23:56)
--- NOTE | 2018-11-09 13:25 | OT.IP.TRT ---
Current Diagnoses Nausea with vomiting, unspecified (11/07/18) Occupational Therapy Treatment Note M3 OT- IP Subjective and Pain Start: 11/09/18 14:30 Freq: Status: Active Protocol: Document 11/09/18 14:30 MORRIS (Rec: 11/09/18 14:31 [email or web address] [id number]) OT- Subjective Occupational Therapy Visit Type Type Administrative Note Visit Start Time 13:25 Notes OT evaluation attempted x2 today, but pt very sleepy from medication used to control intractable nausea and pt not appropriate for assessment today. Will attempt again in AM.
--- NOTE | 2018-11-09 13:47 | PT.IPTN ---
Current Diagnoses Nausea with vomiting, unspecified (11/07/18) Physical Therapy Treatment Note Notes Pt still quite nauseous and about to get ativan, will hold today and try again tomorrow.
[2018-11-09 15:50] VITALS: BP 135/69; PULSE 79; RESP 14; TEMP 37.2; O2SAT 97
--- NOTE | 2018-11-09 19:21 | PM.CN ---
History of Present Illness Date Patient Seen: 11/09/18 Time Patient Seen: 19:22 Chief complaint: vomiting Reason for consult: vomiting Narrative: 57 yo woman HD2 admitted with intractable N and V with large recent R MCA stroke requiring craniotomy and later cranioplasty. She now has significant encephalomalacia of her right hemisphere, and fairly significant cognitive deficits including alex-neglect. She has a long history of diabetes with a recent well with inhaled A1c of 13.4 with recent [place] and V-tach She recently left rehab I was asked by the Medicine service to evaluate for consideration for EGD. Patient is unable to give any history. No family members present. From notes it appears that she does not have a chronic history of nausea or vomiting and that this began in a insidious pattern approximately a week ago. CT scan was performed without clear cause. I personally reviewed the images and as well do not find a source for vomiting. Specifically her stomach and esophagus as well as her duodenum are well decompressed without wall thickening, dilation, or other evidence of gastritis or gastric outlet obstruction. [facility] Medical History (Updated 11/08/18 @ 03:47 by DELTA Anne) Chronic constipation (Acute) Depression (Acute) Diabetes mellitus type 2, noninsulin dependent (Acute) History of ST elevation myocardial infarction (STEMI) (Acute) History of UTI (Acute) History of right MCA stroke (Acute) History of seizures (Acute) Hypertension (Acute) Left spastic hemiplegia (Acute) Nerve pain (Acute) Surgical History History of cranioplasty (Acute) History of craniotomy (Acute) Status post craniectomy (Acute) Family History Father Hypertension Stroke Social History household members: spouse and significant other Smoking Status: Never smoker alcohol intake: never Family History Father Hypertension Stroke Social History household members: spouse and significant other Smoking Status: Never smoker alcohol intake: never Meds Home Medications Medication Instructions Recorded Confirmed Type acetaminophen 650 mg PO Q4H PRN 11/07/18 11/07/18 History amiodarone 200 mg PO BID 11/07/18 11/07/18 History aspirin 81 mg PO DAILY 11/07/18 11/07/18 History atorvastatin 40 mg PO DAILY 11/07/18 11/07/18 History bisacodyl 10 mg [place] DAILY PRN 11/07/18 11/07/18 History doxazosin 1 mg PO DAILY 11/07/18 11/07/18 History enoxaparin 40 mg SUBCUT DAILY 11/07/18 11/07/18 History furosemide [Lasix] 40 mg PO DAILY 11/07/18 11/07/18 History glucagon (human recombinant) 1 mg IM Q20M PRN 11/07/18 11/07/18 History insulin glargine 25 unit SUBCUT BID 11/07/18 11/07/18 History insulin lispro [Humalog U-100 2 - 12 unit SUBCUT TID 11/07/18 11/07/18 History Insulin] levetiracetam 500 mg PO BID 11/07/18 11/07/18 History melatonin 3 mg PO BEDTIME PRN 11/07/18 11/07/18 History metoprolol succinate 12.5 mg PO DAILY 11/07/18 11/07/18 History nystatin 1 applic TOPICAL BID PRN 11/07/18 11/07/18 History polyethylene glycol 3350 [Miralax] 17 g PO DAILY 11/07/18 11/07/18 History quetiapine 25 mg PO BEDTIME PRN 11/07/18 11/07/18 History sennosides [senna] 17.2 mg PO BEDTIME 11/07/18 11/07/18 History trazodone 25 mg PO BEDTIME PRN 11/07/18 11/07/18 History white petrolatum-mineral oil 0.125 inch EYE-BOTH BEDTIME PRN 11/07/18 11/07/18 History [Artificial Tears (chel/min)] Allergies Allergy/AdvReac Type Severity Reaction Status Date / Time lisinopril Allergy Verified 11/07/18 15:55 oxycodone Allergy Verified 11/07/18 15:55 Review of Systems Review of Systems unobtainable due to mental condition Exam Vital Signs (past 8 hours): - 11/09/18 15:50 Temperature 99 F Pulse Rate 79 Respiratory Rate 14 Blood Pressure 135/69 Pulse Oximetry 97 Oxygen Delivery Method Room Air Oxygen Flow Rate 0 Narrative Exam Narrative: Patient is extremely somnolent unable to arouse with significant shaking. Lifts head for several seconds and then drops had again. Craniotomy incision well healed No cervical lymphadenopathy Breathing comfortably on room air lungs clear to auscultation Regular rate and rhythm Abdomen soft -deep palpation along the right side does not elicit wincing or grown or other evidence of discomfort Periphery warm Objective Labs Result Diagrams: 11/09/18 06:10 11/09/18 06:10 Labs: Laboratory Results - last 24 hr 11/09/18 11/09/18 06:10 06:10 WBC 11.0 RBC 4.20 Hgb 12.1 Hct 35.7 L MCV 85.1 MCH 28.9 MCHC 34.0 RDW 15.4 H Plt Count 269 Neut % (Auto) 81.7 H Lymph % (Auto) 13.[address] % (Auto) 4.3 Eos % (Auto) 0.2 L Baso % (Auto) 0.7 Neut # (Auto) 9000 H Lymph # (Auto) 1400 [place] # (Auto) 500 Eos # (Auto) 0 Baso # (Auto) 100 Sodium 134 L Potassium 3.3 L Chloride 98 Carbon Dioxide 23 BUN 9 Creatinine 0.50 L Estimated GFR > 60.0 BUN/Creatinine Ratio 18.0 Glucose 152 H Calcium 8.7 Total Bilirubin 0.7 AST 23 ALT 20 Alkaline Phosphatase 53 Total Protein 6.9 Albumin 4.0 Globulin 2.9 Albumin/Globulin Ratio 1.4 Assessment & Plan Assessment & Plan narrative: 57-year-old woman status post markedly large right MCA stroke now with approximately 10 days of nausea and vomiting that has been intractable. Differential diagnosis is broad including gastroenteritis, GERD, gastric outlet obstruction, gastric, increased intracranial pressure, other neurologic causes -such as vestibular disturbance. In patient with significant diabetes and consequential vascular disease -significant chance of gastroparesis. Reviewing her CT scan however without gastric distension gastric outlet obstruction or gastroparesis less likely Plan: NPO at midnight Will discuss with family tomorrow morning risks and benefits of endoscopy. Is reasonable to examine the mucosa of the esophagus stomach and duodenum as this may assist with understanding etiology. She may need an LP with opening pressures I agree with obtaining gastric emptying study Consider GI panel to evaluate gastroenteritis
[2018-11-09 19:23] VITALS: BP 152/78; PULSE 84; RESP 20; TEMP 37; O2SAT 95
--- NOTE | 2018-11-09 19:37 | P.CONS_ITS ---
History of Present Illness Date Patient Seen: 11/09/18 Time Patient Seen: 19:22 Chief complaint: vomiting Reason for consult: vomiting Narrative: 57 yo woman HD2 admitted with intractable N and V with large recent R MCA stroke requiring craniotomy and later cranioplasty. She now has significant encephalomalacia of her right hemisphere, and fairly significant cognitive deficits including alex-neglect. She has a long history of diabetes with a recent well with inhaled A1c of 13.4 with recent [place] and V-tach She recently left rehab I was asked by the Medicine service to evaluate for consideration for EGD. Patient is unable to give any history. No family members present. From notes it appears that she does not have a chronic history of nausea or vomiting and that this began in a insidious pattern approximately a week ago. CT scan was performed without clear cause. I personally reviewed the images and as well do not find a source for vomiting. Specifically her stomach and esophagus as well as her duodenum are well decompressed without wall thickening, dilation, or other evidence of gastritis or gastric outlet obstruction. [facility] Medical History (Updated 11/08/18 @ 03:47 by DELTA Anne) Chronic constipation (Acute) Depression (Acute) Diabetes mellitus type 2, noninsulin dependent (Acute) History of ST elevation myocardial infarction (STEMI) (Acute) History of UTI (Acute) History of right MCA stroke (Acute) History of seizures (Acute) Hypertension (Acute) Left spastic hemiplegia (Acute) Nerve pain (Acute) Surgical History History of cranioplasty (Acute) History of craniotomy (Acute) Status post craniectomy (Acute) Family History Father Hypertension Stroke Social History household members: spouse and significant other Smoking Status: Never smoker alcohol intake: never Family History Father Hypertension Stroke Social History household members: spouse and significant other Smoking Status: Never smoker alcohol intake: never Meds Home Medications Medication Instructions Recorded Confirmed Type acetaminophen 650 mg PO Q4H PRN 11/07/18 11/07/18 History amiodarone 200 mg PO BID 11/07/18 11/07/18 History aspirin 81 mg PO DAILY 11/07/18 11/07/18 History atorvastatin 40 mg PO DAILY 11/07/18 11/07/18 History bisacodyl 10 mg [place] DAILY PRN 11/07/18 11/07/18 History doxazosin 1 mg PO DAILY 11/07/18 11/07/18 History enoxaparin 40 mg SUBCUT DAILY 11/07/18 11/07/18 History furosemide [Lasix] 40 mg PO DAILY 11/07/18 11/07/18 History glucagon (human recombinant) 1 mg IM Q20M PRN 11/07/18 11/07/18 History insulin glargine 25 unit SUBCUT BID 11/07/18 11/07/18 History insulin lispro [Humalog U-100 2 - 12 unit SUBCUT TID 11/07/18 11/07/18 History Insulin] levetiracetam 500 mg PO BID 11/07/18 11/07/18 History melatonin 3 mg PO BEDTIME PRN 11/07/18 11/07/18 History metoprolol succinate 12.5 mg PO DAILY 11/07/18 11/07/18 History nystatin 1 applic TOPICAL BID PRN 11/07/18 11/07/18 History polyethylene glycol 3350 [Miralax] 17 g PO DAILY 11/07/18 11/07/18 History quetiapine 25 mg PO BEDTIME PRN 11/07/18 11/07/18 History sennosides [senna] 17.2 mg PO BEDTIME 11/07/18 11/07/18 History trazodone 25 mg PO BEDTIME PRN 11/07/18 11/07/18 History white petrolatum-mineral oil 0.125 inch EYE-BOTH BEDTIME PRN 11/07/18 11/07/18 History [Artificial Tears (chel/min)] Allergies Allergy/AdvReac Type Severity Reaction Status Date / Time lisinopril Allergy Verified 11/07/18 15:55 oxycodone Allergy Verified 11/07/18 15:55 Review of Systems Review of Systems unobtainable due to mental condition Exam Vital Signs (past 8 hours): - 11/09/18 15:50 Temperature 99 F Pulse Rate 79 Respiratory Rate 14 Blood Pressure 135/69 Pulse Oximetry 97 Oxygen Delivery Method Room Air Oxygen Flow Rate 0 Narrative Exam Narrative: Patient is extremely somnolent unable to arouse with significant shaking. Lifts head for several seconds and then drops had again. Craniotomy incision well healed No cervical lymphadenopathy Breathing comfortably on room air lungs clear to auscultation Regular rate and rhythm Abdomen soft -deep palpation along the right side does not elicit wincing or grown or other evidence of discomfort Periphery warm Objective Labs Result Diagrams: 11/09/18 06:10 11/09/18 06:10 Labs: Laboratory Results - last 24 hr 11/09/18 11/09/18 06:10 06:10 WBC 11.0 RBC 4.20 Hgb 12.1 Hct 35.7 L MCV 85.1 MCH 28.9 MCHC 34.0 RDW 15.4 H Plt Count 269 Neut % (Auto) 81.7 H Lymph % (Auto) 13.1 L [place] % (Auto) 4.3 Eos % (Auto) 0.2 L Baso % (Auto) 0.7 Neut # (Auto) 9000 H Lymph # (Auto) 1400 [place] # (Auto) 500 Eos # (Auto) 0 Baso # (Auto) 100 Sodium 134 L Potassium 3.3 L Chloride 98 Carbon Dioxide 23 BUN 9 Creatinine 0.50 L Estimated GFR > 60.0 BUN/Creatinine Ratio 18.0 Glucose 152 H Calcium 8.7 Total Bilirubin 0.7 AST 23 ALT 20 Alkaline Phosphatase 53 Total Protein 6.9 Albumin 4.0 Globulin 2.9 Albumin/Globulin Ratio 1.4 Assessment & Plan Assessment & Plan narrative: 57-year-old woman status post markedly large right MCA stroke now with approximately 10 days of nausea and vomiting that has been intractable. Differential diagnosis is broad including gastroenteritis, GERD, gastric outlet obstruction, gastric, increased intracranial pressure, other neurologic causes -such as vestibular disturbance. In patient with significant diabetes and consequential vascular disease -significant chance of gastroparesis. Reviewing her CT scan however without gastric distension gastric outlet obstruction or gastroparesis less likely Plan: NPO at midnight Will discuss with family tomorrow morning risks and benefits of endoscopy. Is reasonable to examine the mucosa of the esophagus stomach and duodenum as this may assist with understanding etiology. She may need an LP with opening pressures I agree with obtaining gastric emptying study Consider GI panel to evaluate gastroenteritis
--- NOTE | 2018-11-09 22:49 | PC.NURSE ---
Evening notes: 1629: Dr Boland in room, came out to speak with me about patient's mentation/alertness. said she was not able to fully assess patient's abdomen due to patients sedation, and asked that nursing back off of Ativan during daytime hours so that patient can be more interactive with staff. I agree fully to this plan. Zahira appears very sedated, able to wake up for a minute, keeps eyes closed, answered a couple yes/no questions then fell back asleep. Speech slurred, she told me her name, birthdate and said she was in the hospital. Verbally denies pain or nausea. Turns self to left side, holding bed rail with right hand. PEARLA, no left blogs manager, LUE & hand flaccid & hand slightly contracted, LLE with no movement in bed. Right blogs manager weak but unable to fully assess neuro at 1600 due to somnolence & sedation level. Will continue to assess. Later this evening Dr Herman in room to assess patient, he said he was not able to wake her. About 15 minutes later myself & [employer]IST in room to perform bladder scan & help patient onto bed adames. She is awake, still keeping eyes closed, answers few yes/no questions, speaking few word sentences when needed. Speech slurred, slightly drooling from left side of mouth when turns to her left. Pre-void bladder scan = 640 ml, patient able to void 300 ml. Patient denied pain or nausea, no dry heaving when awake. Asked for sip of water, sips of water given, pt denies problems swallowing. Oral care/mouth moisturizer give. She fell back asleep after this nurse left her room. Fall precautions in place & seizure pads remain on bed rails, no tremor or sign of seizure observed by staff. 2229: Patient has been more awake since 2099, has been occasionally heard dry heaving, she appears very weak. Neuro PEARLA, she is opening her eyes & more conversive with staff, able to make needs known & express self, speech still somewhat slurred, soft spoken. BP 152/78, pulse 85. Scheduled metoprolol IV given per parameters. PO meds held as patient actively dry heaving & reports nausea. No void since earlier, bladder scan = 699 ml. Patient denies urge to void, no void on bedpan. Straight cath done per standing order parameters, result =650 ml urine output. Patient dry heaving intermittently during/after repositioning & nurse care, when this nurse left room to obtain phenergan suppository she fell back asleep, no dry heaving observed or heard, she appears sleeping quietly. Suppository not given at this point, will reassess.
[2018-11-09 23:41] VITALS: PULSE 76; RESP 16; O2SAT 94
[2018-11-09] MEDS: LORazepam 2 MG/ML INJ 0.5 MG IV (23:54)
[2018-11-10] VITALS (12 sets, daily range): BP systolic 126–155; BP diastolic 56–90; PULSE 70–85; RESP 12–17; TEMP 36.4–37; O2SAT 95–98
[2018-11-10 05:53] LABS: Add Manual Diff / Slide Review NO; Basophils Absolute Auto 100 /uL (0-100); Basophils Percent Auto 0.6 % (0-2); Eosinophils Absolute Auto 0 /uL (0-450); Eosinophils Percent Auto 0.3 % (2-4); Hematocrit 35.6 % (36-46); Hemoglobin 12.3 g/dL (12.0-16.0); Lymphocytes Absolute Auto 2100 /uL (1100-4500); Lymphocytes Percent Auto 22.2 % (25-40); Mean Corpuscular HGB Conc 34.4 % (30-36); Mean Corpuscular Hemoglobin 29.3 PG (26-34); Monocytes Absolute Auto 1000 /uL (0-900); Neutrophils Absolute Auto 6400 /uL (1500-7000); Neutrophils Percent Auto 66.9 % (50-75); Platelet Count 286 X10^3/uL (150-400); Red Blood Cell Count 4.19 X10^6/uL (4.0-5.2); Red Cell Distribution Width 15.1 % (11.6-14.8); White Blood Cell Count 9.6 X10^3/uL (4.5-11.0)
[2018-11-10 06:04] LABS: Blood Urea Nitrogen 10 mg/dL (7-17); Calcium 8.7 mg/dL (8.4-10.2); Carbon Dioxide 24 mmol/L (22-32); Chloride 101 mmol/L (98-107); Estimated Glomerular Filt Rate > 60.0 mL/min (>60); Glucose 125 mg/dL (70-100); HEMOLYSIS 18 (0-50); Potassium 2.9 mmol/L (3.4-5.1); Sodium 135 mmol/L (137-145)
[2018-11-10] MEDS: INSULIN ASPART 100 UNIT/ML INSULN PEN SUBCUT (06:23)
--- NOTE | 2018-11-10 06:32 | PC.NURSE ---
Pt more alert/awake than compared to the previous night. Ativan 0.5mg IV given x1 at midnight for dry heaving. Since administration of ativan, have not heard pt dry heave. Pt had a decently heavy incontinent void overnight. Later in the morning she felt the urge to go, but only produced 150mL of urine. She was then bladder scanned and found to have 788mL in her bladder. 0615- In & Out straight cath with 1,000mL clear yellow urine out. Kept NPO for gastric emptying study. FS q6h, treated with insulin per protocol. Turned and positioned q2h. B/L heels and sacrum have blanchable redness. Pillows used for support.
[2018-11-10] MEDS: levETIRAcetam 500 MG in SODIUM CHLORIDE 0.9% 100 ML 420 ML IV (08:26)
[2018-11-10] MEDS: PANTOPRAZOLE 40 MG VIAL IV ×2 (08:28→19:58)
[2018-11-10] MEDS: POTASSIUM CHLORIDE 80 MEQ in SODIUM CHLORIDE 0.9% 1,000 ML 130 ML IV (10:17)
[2018-11-10] MEDS: ENOXAPARIN 40 MG/0.4 ML SYRINGE SUBCUT (10:17)
--- NOTE | 2018-11-10 10:40 | OT.IP.EVAL ---
Current Diagnoses Nausea with vomiting, unspecified (11/07/18) Surgery Performed Operation Date: 11/10/18 13:15 Actual Procedures p Esophagogastroduodenoscopy(Not Applicable) - Sachin Zee MD Past Medical History (Last Updated 11/08/18 @ 03:47 by DELTA Anne) Chronic constipation (Acute) Depression (Acute) Diabetes mellitus type 2, noninsulin dependent (Acute) History of ST elevation myocardial infarction (STEMI) (Acute) History of UTI (Acute) History of right MCA stroke (Acute) History of seizures (Acute) Hypertension (Acute) Left spastic hemiplegia (Acute) Nerve pain (Acute) Surgical History (Last Reviewed 11/08/18 @ 03:47 by DELTA Anne) History of cranioplasty (Acute) History of craniotomy (Acute) Status post craniectomy (Acute) Occupational Therapy Inpatient Evaluation/Re-Eval M1 PT/OT-IP Prior Functional Status Start: 11/08/18 12:03 Freq: NEEDED Status: Active Protocol: Document 11/10/18 10:40 PJ (Rec: 11/10/18 17:25 PJ [id number]) Medical Review Prior Functional Status Medical History Reviewed Yes Diet/Fluid Consistency Regular Thin Liquids Communication WFL with slowed speed of processing noted per . states S.T. signed off on pt early on during recent acute rehab stay at [facility] for R stroke on 08/25/18 Pt works on activity workbooks and reading skills at home with . Mobility and Gait Pt non ambulatory per . She is mod assist from with bed to w/c transfers and w/c to toilet or shower bench transfers. Activities of Daily Living and IADL's Pt SBA with eating and grooming after set up. Mod assist from with dressing, bathing, and toileting. Pt has been continent at home but recently developed urinary retention with some straight caths required at home per . 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 Pt home only 3 days from acute in pt rehab stay at [facility] when she was readmitted to [facility] with intractable nausea/vomiting. Social History Household Members spouse significant other Living Arrangements House Number of Floors (Floors) One Floor Number of Stairs To Enter/Railing? ramps through garage and out to back patio Home Environment High Toilet Walk in Shower Home Equipment Shower Seat with Backrest Hand Held Shower Grab Bars Near Toilet Employment Status Unemployed Additional Social History Comment Pt worked as commercial loan underwriter prior to stroke; now disabled. Pt has new roll in shower seat with toilet cutout that she just received, but has not used yet. plans to have shower remodeled for roll in use. M2 OT-IP Current Condition Start: 11/09/18 14:30 Freq: Status: Active Protocol: Document 11/10/18 10:40 PJM (Rec: 11/10/18 17:25 PJM [id number]) Occupational Therapy Current Condition Current Condition Evaluation Date 11/10/18 Treatment Diagnosis decr'd self care, mobility, L hemiplegia, L homonymous hemianopsia, N/V Diagnosis Onset Date 11/07/18 Post Operative Precautions Other Precautions L alex, L neglect, fall risk, light sensitivity M3 OT- IP Subjective and Pain Start: 11/09/18 14:30 Freq: Status: Active Protocol: Document 11/10/18 10:40 PJM (Rec: 11/10/18 17:25 PJM [id number]) OT- Subjective Occupational Therapy Visit Type Type Initial Evaluation Visit Start Time 10:04 Visit Stop Time 10:40 Total Visit Minutes 36 Notes Pt's observing today and providing information re: prior level of function. Occupational Therapy Visit Comments Patient Comments pt responds to questions with single words and short phrases Patient/Caregiver Goals none verbalized this session OT Pain Assessment Pain When Pain Assessed After Treatment Pain Present Pain Present Denied Pain M4 OT- IP ADL's Start: 11/09/18 14:30 Freq: Status: Active Protocol: Document 11/10/18 10:40 PJM (Rec: 11/10/18 17:25 PJ [id number]) OT [id number] Comments OT Self-Feeding Comments pt has not been eating due to severe N/V OT ADL-Grooming General Evaluation Grooming Ability Minimal Assistance Areas Needing Assistance Face Washing Comments OT Grooming Comments after set up in bed with R hand OT ADL-Oral Care Comments Oral Care Comments pt declined this session OT ADL-Dressing General Eval Upper Body Dressing Ability Maximum Assistance Lower Body Dressing Ability Total Assistance OT ADL-Toileting General Evaluation Toileting Ability Total Assistance Areas Needing Assistance Manage Clothing Perform Perineal Hygiene Devices Toileting Assistive Devices Bedpan OT ADL-Bathing Bathing Type Bathing Type Bed Bath General Evaluation Bathing Ability Total Assistance M5 OT- IP IADL's Start: 11/09/18 14:30 Freq: Status: Active Protocol: Document 11/10/18 10:40 PJM (Rec: 11/10/18 17:25 PJM [id number]) OT-Instrumental Activities of Daily Living Deficits IADL Deficits Identified Deficits Home Safety Awareness Home Safety Comments does all IADLS at home Medication Management Medication Management Caregiver Administers Money Management Money Management Caregiver Provides Assistance Meal Preparation Meal Preparation Caregiver Provides Assist Bridal Service Sales And Management Bridal Service Sales And Management Caregiver Provides Assist Driving Driving Caregiver Provides Assist M6 OT- IP Functional Cognition Start: 11/09/18 14:30 Freq: Status: Active Protocol: Document 11/10/18 10:40 PJM (Rec: 11/10/18 17:25 PJM [id number]) Cognitive Factors Limiting Selfcare Function Cognitive Ability Level of Alertness Lethargic Patient Orientation Name Month Attention Span Ability Unable to Focus Unable to Sustain Attention Ability to Follow Commands Able to Follow One Step Commands Memory Description Short Term Intact Cognitive Comments Cognitive Assessment Comments Pt lethargic this session. She tends to keep eyes closed due to light sensitivity per . Pt does alert to verbal and tactile stim and follows one step commands with mild processing delay. OT- Vision and Hearing OT- Hearing Assessment OT- Hearing Assessment WFL OT- Vision Assessment Visual Attentiveness Impaired Visual Flynn Impaired Vision Assessment Comments Difficult to formally assess this session due to pt keeping eyes closed. Per , pt has L homonymous hemianopsia with L neglect which improved during her rehab stay. Pt compensates by using red line on L edge of page when reading. M7 OT- IP Mobility and Balance Start: 11/09/18 14:30 Freq: Status: Active Protocol: Document 11/10/18 10:40 PJM (Rec: 11/10/18 17:25 PJM [id number]) OT- Bed Mobility Assessment Rolling Type of Rolling Roll to Right Roll to Left Level of Assistance Maximum Assistance 1 Person Assistance OT-Transfer Assessment Comments Mobility Comments Tilt bed feature used to assist pt with rolling during bedpan use and brief change. requesting pt not get out of bed this session due to upcoming test later this AM. OT- Gait Assessment Comments Gait Ability Comments pt non ambulatory per OT- Balance Assessment Comments Other Balance Tests/Deviations/Treatment to be assessed M8 OT- IP Objective Assessments Start: 11/09/18 14:30 Freq: Status: Active Protocol: Document 11/10/18 10:40 PJM (Rec: 11/10/18 17:25 PJM [id number]) OT Gross Range of Motion Upper Extremity Range of Motion Assessment Left Impaired ROM Impairments Passive shoulder flexion to 130 degrees, ext rot to neutral, distal PROM WFL after minimal tone inhibition but with early contracture noted in wrist/finger flexors. Pt has subluxation of L shoulder with kinesiotape in place. has been trained in kinesiotaping shoulder by therapists at [facility]. Pt uses L sling during transfers. OT Strength Upper Extremity Strength Assessment Left Impaired Shoulder 0 Elbow 1 in flexors Forearm 0 Wrist 0 Hand 0 Hand Assistant Financial Accountant Strength Hand Dominance Right Comments Strength Comments L hand non functional OT- Coordination Assessment Upper Extremity Finger to Nose Test Left UE Impaired Finger Tapping Test Left UE Impaired Comments Coordination Comments L hand non functional OT-Muscle Tone Assessment Muscle Tone WNL No Muscle Tone Location Left Upper Extremity Type of Tone Hypertonicity Severity of Tone Mild Jayde Grade Scale Grade 2 Comments Muscle Tone Comments Pt has moderately increased tone in L shoulder girdle and min increased tone in flexor groups distally. OT Sensation Assessment Location Left Arm Light Touch Impaired Deep Pressure Impaired Proprioception (Position) Impaired Tactile Localization Impaired Edema Edema Present Edema Comments min L hand edema noted M9 OT- IP Assessment and Plan Start: 11/09/18 14:30 Freq: Status: Active Protocol: Document 11/10/18 10:40 PJM (Rec: 11/10/18 17:25 PJM [id number]) OT Summary Assessment and Plan Potential Rehabilitation Potential Good Analytic Complexity at Evaluation Moderate Summary OT Impairments Range of Motion Strength Balance Coordination Sensation Tone Functional Cognition Functional Mobility Self-Feeding Grooming Dressing Toileting Bathing Toilet Transfers Shower Transfers Assessment Summary Moderate complexity OT assessment completed on this 57 yr old woman s/p severe R stroke on 08/15/18 with acute in pt rehab just completed at [facility] on 11/04/18. Pt home 3 days with providing 24 hr assist, then admitted here with intractable nausea/vomiting. Work up in progress. Pt has performance deficits in functional cognition, all functional mobility/transfers and is currently non ambulatory per due to L hemiplegia. She also has significant deficits in eating, grooming, dressing, bathing and toileting due to unilateral function. She has impaired LUE PROM with pain at end of shoulder range noted. Trace biceps is only voluntary movement elicited today with min to moderate flexor tone noted throughout LUE. Pt will benefit from OT services here to address goals below. Anticipate pt will return home with 24 hr assist from when medically stable. They had [facility] PT/ OT ordered but it had not started yet. Goals Self-Feeding Goal Standby Assistance Grooming Goal Standby Assistance Dressing Goal Moderate Assistance Toileting Goal Moderate Assistance Bathing Goal Moderate Assistance Toilet Transfer Goal Moderate Assistance Shower Transfer Goal Moderate Assistance Patient/Caregiver Education Goal Caregiver Independent Assisting Patient Days to Meet Goals 7 Frequency of Treatment Frequency Of Treatment Once a Day Treatment Plan OT Treatment Plan ADL Training Functional Cognition Training Functional Mobility Neuromuscular Re-education Therapeutic Exercises Vision Retraining Patient/Family Education Discharge Planning Other Treatment Recommendations and Next up OOB to w/c as tolerated, Treatment Focus seated self feeding/grooming, L should anterior capsule stretch/PROM,neuro re-ed Discharge Recommendations OT Discharge Recommendations Home with 24/7 Assist Home Health
--- NOTE | 2018-11-10 10:45 | PM.PN.1 ---
Subjective Date Patient Seen: 11/10/18 Interval history: The patient had an uneventful night. She was able to rest comfortably. Her Ativan dosing has been decreased to allow her to be more alert and awake. Today she is awake and alert. Her eyes are closed but she is aware of what's going on. She denies any nausea vomiting or abdominal pain. She understands that she will have a solid food gastric emptying study and will participate by eating a sandwich. The patient has no diarrhea. She is not short of breath. She was seen in consultation by Dr. Wesley lasting with recommendations that are much appreciated. Exam Vital Signs (past 8 hours): - 11/10/18 04:00 11/10/18 09:00 11/10/18 09:29 Temperature 97.7 F 97.7 F Pulse Rate 77 74 Respiratory Rate 16 14 Blood Pressure 137/77 138/56 L Pulse Oximetry 97 98 97 Oxygen Delivery Method Room Air Oxygen Flow Rate 0 Narrative Exam Narrative: Pleasant female resting comfortably in bed eyes: But alert and responds HEENT: Normocephalic, well-healed parietal scalp lesions, well-healed frontal parietal lesion on the right side of the scalp as well no erythema noted Lungs: Clear to auscultation Cardiac exam: Regular rate rhythm normal S1-S2 Abdomen: Soft nontender nondistended without hepatosplenomegaly Extremities: No edema Neuro exam: Patient has her eyes closed is she has severe light sensitivity. She has a dense right-sided hemiparesis. Objective Labs Result Diagrams: 11/10/18 05:35 11/10/18 05:35 Labs: Laboratory Results - last 24 hr 11/10/18 11/10/18 05:35 05:35 WBC 9.6 RBC 4.19 Hgb 12.3 Hct 35.6 L MCV 85.0 MCH 29.3 MCHC 34.4 RDW 15.1 H Plt Count 286 Neut % (Auto) 66.9 Lymph % (Auto) 22.2 L [place] % (Auto) 10.0 Eos % (Auto) 0.3 L Baso % (Auto) 0.6 Neut # (Auto) 6400 Lymph # (Auto) 2100 [place] # (Auto) 1000 H Eos # (Auto) 0 Baso # (Auto) 100 Sodium 135 L Potassium 2.9 L Chloride 101 Carbon Dioxide 24 BUN 10 Creatinine 0.50 L Estimated GFR > 60.0 BUN/Creatinine Ratio 20.0 Glucose 125 H Calcium 8.7 Assessment & Plan Assessment & Plan narrative: 1. Nausea vomiting and abdominal pain. This appears to be somewhat improved today. But according to her it does wax and wane. CT scan of her abdomen was essentially unrevealing. There was some minimal findings to suggest Colitis however given her normal white count and no evidence of diarrhea this is unlikely . Appreciate surgery consultation. Patient is to have a solid food gastric emptying study today. If the study is negative will proceed with upper endoscopy to evaluate for possible gastroesophageal reflux disease. 2. Not toxic encephalopathy, secondary to Ativan. Ativan has been decreased to allow the patient to wake up. 3. Hypokalemia, will replace 4. History of large left MCA CVA status post craniectomy and cranioplasty, discussed with Dr. Jay joseph from neuro surgery. He recommends tapering off her Keppra over the next 7 days 5. Recent myocardial infarction with associated ventricular tachycardia, continue beta-asha and amiodarone 6. Type 2 diabetes, will continue basal bolus insulin 7. Hyperlipidemia continue statin 8. Depression, continue Remeron and trazodone at night as needed 9. Malnutrition will continue to encourage oral intake with shakes, will follow up following gastric for solid food gastric emptying study. Patient will continue on as needed Reglan and IV hydration for now
--- NOTE | 2018-11-10 10:50 | PT.IPTN ---
Current Diagnoses Nausea with vomiting, unspecified (11/07/18) Physical Therapy Treatment Note M3 PT-IP Subjective Start: 11/08/18 12:03 Freq: NEEDED Status: Active Protocol: Document 11/10/18 10:49 AB (Rec: 11/10/18 10:50 AB [id number]) Subjective Physical Therapy Visit Type Notes per spouse, pt is going to have a study done soon and does not want pt to be tired before the study. requested that PT eval done after study is completed.
--- NOTE | 2018-11-10 11:41 | PC.NURSE ---
Day shift: Pt off unit at approx 1141 for swallow study. Per Romy in [facility] Pt may need to be transported to and from downstairs to complete the study as Pt is non-ambulatory and may not tolerate sitting in a chair. Will continue to update MAR as needed.
--- NOTE | 2018-11-10 12:01 | PC.NURSE ---
Day shift: Pt back on unit. Pt unable to eat sandwich. Will inform .
--- NOTE | 2018-11-10 13:14 | PC.NURSE ---
Day shift: Pt off unit for EDG at this time. Consent signed and in chart. Spouse going down to waiting room at this time as well.
--- NOTE | 2018-11-10 13:21 | P.PN_ITS ---
Subjective Date Patient Seen: 11/10/18 Time Patient Seen: 13:16 Interval history: Patient unable to tolerate any p.o. today Unable to ingest even a minimal amount of material for gastric emptying study Long discussion had with the patient's . Patient reports significant increase in nausea following cranioplasty with replacement of bone of skull following decompressive craniotomy after large R MCA stroke. By history mostly a problem nausea, minimal emesis. I discussed that there may be GI tract etiology such as partial obstruction, evidence of significant reflux, gastroparesis, gastritis but that might greatest index of suspicion was for etiology related to the head, possibly elevated ICP. We discussed the possibility of placement of a PEG feeding tube today-given esse ntially no meaningful nutritional intake and over week. Has been requested this not take place we move forward with diagnostic interventions. Patient oriented to month, year, season, readily able to show 2 fingers on command Plan: EGD today -risks of procedure including, sedation risk, cognitive impairment after sedation, aspiration, injury to GI tract all discussed Exam Vital Signs (past 8 hours): - 11/10/18 09:00 11/10/18 09:29 11/10/18 12:00 Temperature 97.7 F 98.5 F Pulse Rate 74 77 Respiratory Rate 14 14 Blood Pressure 138/56 L 155/79 H Pulse Oximetry 98 97 98 Oxygen Delivery Method Room Air Oxygen Flow Rate 0 Objective Labs Result Diagrams: 11/10/18 05:35 11/10/18 05:35 Labs: Laboratory Results - last 24 hr 11/10/18 11/10/18 05:35 05:35 WBC 9.6 RBC 4.19 Hgb 12.3 Hct 35.6 L MCV 85.0 MCH 29.3 MCHC 34.4 RDW 15.1 H Plt Count 286 Neut % (Auto) 66.9 Lymph % (Auto) 22.2 L [place] % (Auto) 10.0 Eos % (Auto) 0.3 L Baso % (Auto) 0.6 Neut # (Auto) 6400 Lymph # (Auto) 2100 [place] # (Auto) 1000 H Eos # (Auto) 0 Baso # (Auto) 100 Sodium 135 L Potassium 2.9 L Chloride 101 Carbon Dioxide 24 BUN 10 Creatinine 0.50 L Estimated GFR > 60.0 BUN/Creatinine Ratio 20.0 Glucose 125 H Calcium 8.7
[2018-11-10] MEDS: TETRACAINE/BENZOCAINE/BUTAMBEN (CETACAINE) BOTTLE 1 SPRAY TOP (13:34)
[2018-11-10] MEDS: fentaNYL 250 MCG/5 ML INJ IV (13:39)
[2018-11-10] MEDS: MIDAZOLAM 5 MG/5 ML VIAL IV (13:40)
--- NOTE | 2018-11-10 14:00 | PM.OP.ENDO ---
Operative Date/Time/Diagnoses Date of procedure: 11/10/18 Time of procedure: 14:00 Pre-op diagnosis: Intractable nausea Post-op diagnosis: same Procedure & Clinicians Study performed: EGD Same procedure as scheduled: Yes Indications: 57-year-old woman presents with intractable nausea to hospice. EGD performed to evaluate for underlying etiology Surgeon: Sachin Zee Procedure Notes SCOAP/Timeout: completed Procedure in detail: Patient was brought to the endoscopy suite, a time-out was completed. Her oropharynx was anesthetized with benzocaine spray. She was sedated for the entire course of the procedures with 3 mg of midazolam, 50 micro g of fentanyl. The scope was easily passed through her oral cavity, a notable mandibular becky was identified on her hard palate. Her glottis was briefly seen there was a posterior polyp just above the level of her true cords. A photograph was taken of this. The scope was then advanced through the hypopharynx into the proximal esophagus and passed through the esophagus into the stomach without incident. The pylorus was intubated in the 1st and 2nd portion of the duodenum were inspected. There is no evidence of gastric outlet obstruction. The duodenal mucosa appeared healthy and robust there is no ulceration or erythema whatsoever. Withdrawing the scope the mucosa of the antrum and gastric body appeared robust healthy, again there were no ulcerations, the rugae appeared normal. No polyps identified. The scope was retroflexed there was a grade 1 Hill valve. Inspecting the distal esophagus there were no erosions suggestive of gastric reflux. There was no metaplasia above the level of the Z-line, the Z line itself matched the esophageal hiatus. Withdrawing the scope through the esophagus there was no strictures erosions rings webs or other pathology. Patient tolerated the procedure well Of note: While the endoscope was in the stomach I did fully inflate the stomach and press on the anterior abdominal wall there was good one-to-one motion -I suspect she would be a good candidate for a PEG tube if need be. Scope withdrawal time: na Sedation minutes: 14 Specimen(s): none sent Complications: none Impression: Normal EGD Would be a good candidate for PEG tube if needed Small vocal cord polyp Plan for aftercare: Two floor, ongoing workup of etiology Follow up: as needed Disposition: Acute Care
--- NOTE | 2018-11-10 14:40 | SUR.PHASEI ---
Post procedural note: VSS, O2 sat WNL. Responding appropriately to verbal commands. Denies any pain or nausea. Stable for transfer to IP Room 207. Verbal report given to Cassius Reagan RN.
--- NOTE | 2018-11-10 15:40 | DIET.PN ---
Dietary Progress Note Assessment: 57y F with second consulted to RD c intractable nausea and vomiting. Pt family notably frustrated, report pt has been here since 11/07 and seems to be worse (dry heaving, nausea) they have tried everything. Family reports nausea, vomiting past 10d c little PO food or fluid during that time. Abdominal CT obtain last evening showed mild colitis, there was a large gallstones seen, hyperemia of the gallbladder, but no findings it to suggest acute cholecystitis. The patient continues to have persistent nausea and vomiting. She has burping and belching as well. Differential diagnosis includes 1. Diabetic gastroparesis, gastroesophageal reflux disease, gastritis. Pt had suppository last night, has had 5 BMs since this am per RN. Scheduled for endoscopy, results will determine diet order. Med hx: Pt 2.5mo s/p stroke c ongoing complications, DM2, chronic constipation. HT: 162.5cm WT: 66.1kg BMI: 25 Labs: BG 145-192 (H); A1c 6.4 (H); K+ 3.3 (L) Nutrition Diagnosis: Severe acute PCM r/t acute illness (intractable nausea/vomiting) complicated by recent stroke aeb no measurable PO intake (fluid/food) for 12d, GI symptoms >10d (nausea, vomiting), 3.5% wt loss in 1w (severe), and mild subcutaneous fat and muscle loss in temples, clavicle, femur. Interventions: Diet order pending endoscopy and swallow study Monitoring/Evaluations: following daily until stable; diet order, tolerance, POs, wt, associated labs
--- NOTE | 2018-11-10 15:42 | DIET.PN ---
Dietary Progress Note Assessment: 57y F with second consult for intractable nausea and vomiting, no appetite or PO intake. Per previous RD note, Pt family reports pt has been here since 11/07 and seems to be worse (dry heaving, nausea). Pt completed EGD with no abnormal findings. It was noted pt is a good candidate for PEG placement. Med hx: Pt 2.5mo s/p stroke c ongoing complications, DM2, chronic constipation. Diet Order: NPO HT: 162.5cm WT: 66 kg BMI: 25 Labs: BG 145-192 (H); A1c 6.4 (H); K+ 3.3 (L) Nutrition Diagnosis: Severe acute PCM r/t acute illness (intractable nausea/vomiting) complicated by recent stroke aeb no measurable PO intake (fluid/food) for >9d, GI symptoms >10d (nausea, vomiting), 3.5% wt loss in 1w (severe), and mild subcutaneous fat and muscle loss in temples, clavicle, femur. Interventions: Consider PEG tube feeding for nourishment as PO intake is not tolerated. Monitoring/Evaluations: following daily until stable; diet order, tolerance, POs, wt, associated labs
--- NOTE | 2018-11-10 16:15 | PC.NURSE ---
Addendum entered by Evy Duong R.N. 11/10/18 21:09: Pt resting most evening. Arouses when spoken too. Denies discomfort when asked. Voiding per bedpan clear urine. Call light w/in reach, bed alarm on for pt safety. Continue w/plan of care. Original Note: Pt non-verbal at this time. Lungs diminishe at bases. SpO2 95% RA IV NS w/40meq KCL infusing into the LAC at 130cc/hr via pumpw/o incidence Family in room Call light w/in reach, bed alarm on for pt safety.
[2018-11-10 16:55] LABS: Platelet Count 299 X10^3/uL (150-400)
[2018-11-10 17:05] LABS: INR 1.2 (0.9-1.3); Prothrombin Time 14.2 SECONDS (10.1-12.7)
[2018-11-10 17:08] LABS: PTT Partial Thromboplastin Tim 31 SECONDS (26.4-36.2)
[2018-11-10 17:09] LABS: Blood Urea Nitrogen 9 mg/dL (7-17); Calcium 8.7 mg/dL (8.4-10.2); Carbon Dioxide 25 mmol/L (22-32); Chloride 103 mmol/L (98-107); Estimated Glomerular Filt Rate > 60.0 mL/min (>60); Glucose 111 mg/dL (70-100); HEMOLYSIS < 15 (0-50); Magnesium 1.5 mg/dL (1.6-2.3); Potassium 3.3 mmol/L (3.4-5.1); Sodium 137 mmol/L (137-145)
--- NOTE | 2018-11-10 17:27 | PT.IPTN ---
Current Diagnoses Nausea with vomiting, unspecified (11/07/18) Surgery Performed Operation Date: 11/10/18 13:15 Actual Procedures p Esophagogastroduodenoscopy(Not Applicable) - Sachin Zee MD Physical Therapy Treatment Note M3 PT-IP Subjective Start: 11/08/18 12:03 Freq: NEEDED Status: Active Protocol: Document 11/10/18 17:26 AB (Rec: 11/10/18 17:27 AB [id number]) Subjective Physical Therapy Visit Type Notes checked on pt again and nurse stated that pt just got back after endoscopy procedure. spouse stated that pt will not do PT today. will f/u tomorrow.
[2018-11-11] VITALS (9 sets, daily range): BP systolic 131–148; BP diastolic 74–89; PULSE 71–85; RESP 14–18; TEMP 36.3–37.4; O2SAT 95–99
--- NOTE | 2018-11-11 00:32 | PC.NURSE ---
2300- Pt admit for naus/vomiting w/ an 'inconclusive' EGD result today. Pt remains sleepy/tired but A+Ox4 when awake. Seizure pads in place for active hx of seizures; IV saline locked; pt is not ambulating at this time---using bedpan to urinate. Cont SpO2 in place w/ stable sats on RA. Per previous RN pt ate mashed potatoes & Ensure drink w/o any nausea/vomiting. 2345- Verbal order from DELTA Dent to change BG checks to AC/HS. 0245- Pt voided 50 cc into the bedpan per her daughters report. Told daughter to let nurses know when pt voids. Bladder scan completed w/ 90cc present.
[2018-11-11 06:19] LABS: Add Manual Diff / Slide Review NO; Basophils Absolute Auto 100 /uL (0-100); Eosinophils Absolute Auto 100 /uL (0-450); Eosinophils Percent Auto 1.2 % (2-4); Hematocrit 33.3 % (36-46); Hemoglobin 11.5 g/dL (12.0-16.0); Lymphocytes Absolute Auto 2300 /uL (1100-4500); Lymphocytes Percent Auto 25.1 % (25-40); Mean Corpuscular HGB Conc 34.6 % (30-36); Mean Corpuscular Hemoglobin 29.4 PG (26-34); Monocytes Absolute Auto 700 /uL (0-900); Monocytes Percent Auto 8.2 % (3-14); Neutrophils Absolute Auto 5800 /uL (1500-7000); Neutrophils Percent Auto 64.5 % (50-75); Platelet Count 272 X10^3/uL (150-400); Red Blood Cell Count 3.92 X10^6/uL (4.0-5.2); Red Cell Distribution Width 15.6 % (11.6-14.8)
[2018-11-11 06:26] LABS: Alanine Aminotransferase 22 IU/L (9-52); Albumin 3.2 g/dL (3.5-5.0); Albumin Globulin Ratio 1.2 (1.0-2.8); Alkaline Phosphatase 51 U/L (38-126); Aspartate Aminotransferase 17 IU/L (14-36); BUN Creatinine Ratio 18.3 (6-22); Bilirubin Total 0.6 mg/dL (0.2-1.3); Blood Urea Nitrogen 11 mg/dL (7-17); Calcium 8.5 mg/dL (8.4-10.2); Carbon Dioxide 25 mmol/L (22-32); Chloride 105 mmol/L (98-107); Estimated Glomerular Filt Rate > 60.0 mL/min (>60); Globulin 2.6 g/dL (1.7-4.1); Glucose 114 mg/dL (70-100); HEMOLYSIS < 15 (0-50); Potassium 3.2 mmol/L (3.4-5.1); Sodium 135 mmol/L (137-145); Total Protein 5.8 g/dL (6.3-8.2)
[2018-11-11] MEDS: POTASSIUM CHLORIDE 40 MEQ in SODIUM CHLORIDE 0.9% 500 ML 130 ML IV (08:35)
[2018-11-11] MEDS: levETIRAcetam 500 MG in SODIUM CHLORIDE 0.9% 100 ML 420 ML IV (09:08)
[2018-11-11] MEDS: PANTOPRAZOLE 40 MG VIAL IV (10:05)
--- NOTE | 2018-11-11 10:21 | PC.NURSE ---
Addendum entered by Nallely Marks R.N. 11/11/18 15:33: IV - Site has remained patent, surrounding tissue not reddened and is soft, has had discomfort w/kcl, slowed rate and ns at 21hr concurrently and pt said that providing relief. Addendum entered by Nallely Marks R.N. 11/11/18 14:25: MS/PO - PT and OT in to try and mobilize pt, flaccid lue, lle, able tsf to dangle position, pt could not maintain upright position and felt dizzy and declined try oob, charissa few sips ensure and milk, does open eyes briefly and stated no when asked if she could take any po medications. Addendum entered by Nallely Marks R.N. 11/11/18 12:36: MS/DIAG TEST - in and reviewing medications with family, have the current list and discussed with spouse and Dr. Cedeno and will update the home medications to match, per , cancel the LP and pt n/v is improving after review and dc of certain medications, diagn imaging notified. Original Note: AM NOTE - pt can hear and briefly respond, does not fully awaken or become alert, will answer to spouse and he was able to give her a few sips ensure and milk this am, plan for lumbar puncture at 1330 today, K+ rider started this am, discussed medications with Dr. Cedeno and will continue with the iv metoprolol as needed, tele placed per new order, pt able to use bedpan with spouse at side to assist, ra 96%, seizure pads in place.
--- NOTE | 2018-11-11 11:30 | PT.IIE ---
Current Diagnoses Nausea with vomiting, unspecified (11/07/18) Surgery Performed Operation Date: 11/10/18 13:15 Actual Procedures p Esophagogastroduodenoscopy(Not Applicable) - Sachin Zee MD Surgical History (Last Reviewed 11/08/18 @ 03:47 by DELTA Anne) History of cranioplasty (Acute) History of craniotomy (Acute) Status post craniectomy (Acute) Medical History (Last Updated 11/08/18 @ 03:47 by DELTA Anne) Chronic constipation (Acute) Depression (Acute) Diabetes mellitus type 2, noninsulin dependent (Acute) History of ST elevation myocardial infarction (STEMI) (Acute) History of UTI (Acute) History of right MCA stroke (Acute) History of seizures (Acute) Hypertension (Acute) Left spastic hemiplegia (Acute) Nerve pain (Acute) Physical Therapy Inpatient Evaluation/Re-Eval M1 PT/OT-IP Prior Functional Status Start: 11/08/18 12:03 Freq: NEEDED Status: Active Protocol: Document 11/11/18 11:30 AB (Rec: 11/11/18 14:14 AB [id number]) Medical Review Prior Functional Status Medical History Reviewed Yes Diet/Fluid Consistency Regular Thin Liquids Communication pt does not verbalize much but able to follow directions. pt's spouse present and able to answer questions regarding pt. Mobility and Gait pt's spouse assists pt with mobility; able to assist pt into a w/c by doing a stand pivot transfer. spouse stated that pt is non-ambulatory but able to assist with standing. Activities of Daily Living and IADL's Per OT's note: Pt SBA with eating and grooming after set up. Mod assist from husbnad with dressing, bathing, and toileting. Pt has been continent at home but recently developed urinary retention with some straight caths required at home per . Prior Functional Level (Other details) pt with R MCA stroke with L hemiparesis and underwent craniotomy at [facility] . pt underwent inpatient rehab and was discharged home 11/04/18. pt presented to the ER with c/o nausea/vomiting 11/07/18. Social History Household Members spouse Living Arrangements House Number of Floors (Floors) One Floor Number of Stairs To Enter/Railing? ramp to enter Home Environment High Toilet Walk in Shower Ramp Home Equipment Shower Seat with Backrest Hand Held Shower Grab Bars Near Toilet Employment Status Unemployed Additional Social History Comment per OT's note: Pt has new roll in shower seat with toilet cutout that she just received, but has not used yet. plans to have shower remodeled for roll in use. family also ordered an adjustable bed for pt but has not arrived yet. M2 PT-IP Current Condition Start: 11/08/18 12:03 Freq: NEEDED Status: Active Protocol: Document 11/11/18 11:30 AB (Rec: 11/11/18 14:14 AB [id number]) Physical Therapy Current Condition Current Condition Evaluation Date 11/11/18 Treatment Diagnosis vomiting; s/p craniotomy, CVA; generalized weakness Onset Date 11/07/18 Precautions Other Precautions falls M3 PT-IP Subjective Start: 11/08/18 12:03 Freq: NEEDED Status: Active Protocol: Document 11/11/18 11:30 AB (Rec: 11/11/18 14:14 AB [id number]) Subjective Physical Therapy Visit Type Type Initial Evaluation Visit Start Time 11:30 Visit Stop Time 12:00 Total Visit Minutes 30 Number of DUAL RATE DEALER Visits 0 Physical Therapy Visit Comments Patient Comments pt not verbalizing much but nods when she agrees and shakes her head when she doesn 't M4 PT-IP Mobility and Gait Start: 11/08/18 12:03 Freq: NEEDED Status: Active Protocol: Document 11/11/18 11:30 AB (Rec: 11/11/18 14:14 AB [id number]) PT-Bed Mobility Assessment Rolling Type of Rolling Bilateral Level of Assist Maximal Assistance 2 Person Assistance Supine to Sit Supine to Sit Maximum Assistance 2 Person Assistance Head of Bed Elevated Bedrails Sit to Supine Sit to Supine Maximum Assistance 2 Person Assistance Head of Bed Elevated Bedrails Scooting Scooting to Edge of Bed Maximum Assistance Scooting Up and Down in Bed Dependent PT-Transfer Assessment Comments Mobility Comments Pt completed rolling L<>R max A x 2 and max cues using bed rail while assisted with brief management and positioning. pt completed supine to sit max A and max cues. pt was able to sit on EOB with max A and cues but only tolerated ~ 10- 15 sec of sitting and c/o ligthheadedness and wants to lay backdown. assisted pt to supine max A x 2 and max cues. pt refused to sit back up again. educated pt and spouse to try to elevated HOB as much as possible and agreed. positioned pt in bed. call light and table placed within reach. PT-Balance Assessment Sitting Balance and Reactions Static Sitting Balance Ability Poor Dynamic Sitting Balance Ability Poor M5 PT-IP Objective Assessments Start: 11/08/18 12:03 Freq: NEEDED Status: Active Protocol: Document 11/11/18 11:30 AB (Rec: 11/11/18 14:14 AB [id number]) Orientation Orientation/Cognition Level of Alertness Lethargic Comments pt is not verbalizing much but can follow directions; spouse stated that pt has not been up for 4 days and not been eating and is very weak. Gross Range of Motion Lower Extremity ROM Assessment Within Functional Limits Strength Lower Extremity Strength Assessment Left Impaired Knee 0/5 Muscle Tone Muscle Tone Location Left Lower Extremity Type of Tone Hypotonicity Severity of Tone Severe M6 PT-IP Treatment Start: 11/08/18 12:03 Freq: NEEDED Status: Active Protocol: Document 11/11/18 11:30 AB (Rec: 11/11/18 14:14 AB [id number]) Physical Therapy Treatment Education Education Provided Safety M7 PT-IP Assessment and Plan Start: 11/08/18 12:03 Freq: NEEDED Status: Active Protocol: Document 11/11/18 11:30 AB (Rec: 11/11/18 14:14 AB [id number]) PT Summary Assessment and Plan Potential Rehabilitation Potential Fair Status of Condition at Evaluation Evolving Summary Impairments Pain ROM Strength Balance Coordination Sensation Tone Cognition Bed Mobility Transfers Gait Activity Tolerance Assessment Summary pt requiring max A x 2 and max cues and unable to tolerate much activity. d/c plan depending if family will be able to provide necessary assistance . will continue to assess. Goals Bed Mobility Goal Moderate Assistance Transfer Goal Moderate Assistance Frequency of Treatment Frequency Of Treatment Once a Day Treatment Plan Physical Therapy Treatment Plan Bed Mobility Training Transfer Training Therapeutic Exercise Balance Retraining Discharge Planning Neuromuscular Re-ed Coordination Retraining Manual Therapy Recommendations To Nursing Amount of Assist Needed Total Assistance Mechanical Lift Discharge Recommendations PT Discharge Recommendations Home with 24/ Assist Home Health SNF Rehab
--- NOTE | 2018-11-11 11:32 | P.PN_ITS ---
Subjective Date Patient Seen: 11/11/18 Interval history: Patient is 57-year-old female with history of large right MCA, s/p right frontotemporal decompressive craniectomy and temporal lobectomy on 08/29/2018 at [facility], s/p STEMI and V-tach during stroke hospitalization, status post cranioplasty on 10/20/2018, status post discharge from acute rehab on 11/04/2018 admitted to [facility] due to persistent nausea and vomiting. CT scan without significant abdominal findings. EGD also without significant finding. Patient has some improvement in nausea over the past couple of days. She took some Ensure last night. Still with poor appetite. Has not been vomiting. Lumbar puncture scheduled for this afternoon to assess opening pressures. Exam Vital Signs (past 8 hours): - 11/11/18 05:51 11/11/18 08:36 11/11/18 09:21 Temperature 98.1 F 99.3 F Pulse Rate 74 Respiratory Rate 14 Blood Pressure 138/83 Pulse Oximetry 98 95 Oxygen Delivery Method Room Air Oxygen Flow Rate 0 Narrative Exam Narrative: GENERAL: Patient is sleepy but cooperative HEENT: Face symmetric CHEST: Clear to auscultation bilaterally. CARDIAC: Regular rate and rhythm. ABDOMEN: Nondistended, soft, nontender EXTREMITIES: no edema. NEUROLOGICAL: Oriented, dense left hemiplegia SKIN: Warm, dry, no petechiae, no rash Objective Labs Result Diagrams: 11/11/18 06:05 11/11/18 06:05 Labs: Laboratory Results - last 24 hr 11/10/18 11/10/18 11/10/18 16:46 16:46 16:46 WBC RBC Hgb Hct MCV MCH MCHC RDW Plt Count 299 Neut % (Auto) Lymph % (Auto) Hays % (Auto) Eos % (Auto) Baso % (Auto) Neut # (Auto) Lymph # (Auto) [place] # (Auto) Eos # (Auto) Baso # (Auto) PT 14.2 H INR 1.2 APTT 31 Sodium 137 Potassium 3.3 L Chloride 103 Carbon Dioxide 25 BUN 9 Creatinine 0.50 L Estimated GFR > 60.0 BUN/Creatinine Ratio 18.0 Glucose 111 H Calcium 8.7 Magnesium 1.5 L Total Bilirubin AST ALT Alkaline Phosphatase Total Protein Albumin Globulin Albumin/Globulin Ratio 11/11/18 11/11/18 06:05 06:05 WBC 9.0 RBC 3.92 L Hgb 11.5 L Hct 33.3 L MCV 85.0 MCH 29.4 MCHC 34.6 RDW 15.6 H Plt Count 272 Neut % (Auto) 64.5 Lymph % (Auto) 25.1 Hays % (Auto) 8.2 Eos % (Auto) 1.2 L Baso % (Auto) 1.0 Neut # (Auto) 5800 Lymph # (Auto) 2300 Hays # (Auto) 700 Eos # (Auto) 100 Baso # (Auto) 100 PT INR APTT Sodium 135 L Potassium 3.2 L Chloride 105 Carbon Dioxide 25 BUN 11 Creatinine 0.60 Estimated GFR > 60.0 BUN/Creatinine Ratio 18.3 Glucose 114 H Calcium 8.5 Magnesium Total Bilirubin 0.6 AST 17 ALT 22 Alkaline Phosphatase 51 Total Protein 5.8 L Albumin 3.2 L Globulin 2.6 Albumin/Globulin Ratio 1.2 Assessment & Plan Assessment & Plan narrative: Patient is 57-year-old female with history of large right MCA, s/p right frontotemporal decompressive craniectomy and temporal lobectomy on 08/29/2018 at [facility], s/p STEMI and V-tach during stroke hospitalization, status post cranioplasty on 10/20/2018, status post discharge from acute rehab on 11/04/2018 admitted to [facility] due to persistent nausea and vomiting. CT scan without significant abdominal findings. EGD also without significant finding. 1. Intractable nausea and vomiting -improving, etiology may be due to medication side effect (Keppra, amiodarone) versus elevated BOILERMAKER SHIP pressure versus gastroparesis -CT scan an EGD unremarkable, patient unable to take sandwich to assess for gastroparesis which is rather less likely etiology - has noticed correlation of GI symptoms starting when she was put back on Keppra and improved when she had been off of Keppra -Dr. Boland discussed clinical findings with patient's neurosurgeon at [facility], Dr. Jovanny Mackay, and recommendation made to perform LP puncture to assess opening pressure, if CSF opening pressure is greater than 15 then patient will need transfer to [facility] for neurosurgical consult as it could be cause of her nausea and vomiting, Dr. Mackay also recommended tapering off Keppra -Keppra dose reduced by 50% to 500 mg IV daily on 11/10/2018, recommend stopping Keppra all together in the next few days -discontinued amiodarone, patient with episode of V-tach after STEMI during stroke hospitalization in August 2018, and amiodarone may also contribute to her GI symptoms -lumbar puncture to assess opening pressure -encourage oral intake as tolerated -IV hydration 2. History of STEMI and V-tach August 2018 -telemetry monitoring -last echo 09/06/2018 showed LV EF 40-45%, needs outpatient follow-up echo, noted no symptoms of fluid overload and supposedly Lasix and potassium were stopped on October 29 although still showing up on his home med list -as above, discontinue amiodarone due to possible source of GI symptoms (dose on acute rehab discharge noted 200 mg q.d. but showing 200 mg b.i.d. on home med list) -continue beta-asha IV or p.o., can likely increase metoprolol succinate ER dose since patient is off of amiodarone -continue low-dose aspirin, atorvastatin if able to take p.o. -discontinue home furosemide -patient has outpatient cardiology clinic follow-up on 11/30/2018 3. History of large right MCA stroke, due to right MCA thrombosis, status post decompressive craniotomy and subsequent cranioplasty -post CVA left spastic hemiplegia, left homonymous hemianopsia, left side visual neglect, left sensory deficit -neurologically stable, and daughter are primary caregivers -resume home health services upon discharge 4. Type 2 diabetes, insulin requiring -previously uncontrolled -continue sliding scale insulin, glucose has been below 150 without her basal insulin (Lantus 25 units subcu b.i.d.), due to minimal p.o. intake, may need basal dose lowered or discontinued on discharge -discharge summary from acute rehab notes patient was started on metformin ER 500 mg b.i.d. although this is not on her med list, and probably would not restart at this time due to GI symptoms -also it looks like she was not discharged from acute rehab on any insulin so it could be her current home medication list is inaccurate 5. Depression -continue mirtazapine and trazodone at night as needed -Seroquel as needed at night on med list but shows discontinued on her acute rehab discharge 6. Chronic urinary retention -recurring problem since her stroke in August -continue straight cath as needed, and daughter have been previously trained for I/O catheterization 7. Neuropathic pain post stroke -patient had been discharged from acute rehab on gabapentin 100 mg t.i.d. but this is not on her home med list, need to clarify whether she was taking gabapentin at home Continue inpatient management for intractable nausea and vomiting. Patient will need her home medication list closely reviewed as are substantial discrepancies with the discharge medication list from acute rehab which was just completed on 11/04/2018.
--- NOTE | 2018-11-11 12:30 | OT.IP.TRT ---
Current Diagnoses Nausea with vomiting, unspecified (11/07/18) Surgery Performed Operation Date: 11/10/18 13:15 Actual Procedures p Esophagogastroduodenoscopy(Not Applicable) - Sachin Zee MD Occupational Therapy Treatment Note M2 OT-IP Current Condition Start: 11/09/18 14:30 Freq: Status: Active Protocol: Document 11/10/18 10:40 PJM (Rec: 11/10/18 17:25 PJM [id number]) Occupational Therapy Current Condition Current Condition Evaluation Date 11/10/18 Treatment Diagnosis decr'd self care, mobility, L hemiplegia, L homonymous hemianopsia, N/V Diagnosis Onset Date 11/07/18 Post Operative Precautions Other Precautions L alex, L neglect, fall risk, light sensitivity M3 OT- IP Subjective and Pain Start: 11/09/18 14:30 Freq: Status: Active Protocol: Document 11/11/18 12:15 [facility] (Rec: 11/11/18 12:30 [facility] [id number]) OT- Subjective Occupational Therapy Visit Type Type Treatment Note Visit Start Time 11:30 Visit Stop Time 12:00 Total Visit Minutes 30 Occupational Therapy Visit Comments Patient Comments Pt agreed to work with OT and PT to try to get up. OT Pain Assessment Pain When Pain Assessed At Rest Pain Present Pain Present Denied Pain M4 OT- IP ADL's Start: 11/09/18 14:30 Freq: Status: Active Protocol: Document 11/11/18 12:15 [facility] (Rec: 11/11/18 12:30 [facility] [id number]) OT ADL-Grooming General Evaluation Grooming Ability Standby Assistance Areas Needing Assistance Retrieving/Set-up of Grooming Items Comments OT Grooming Comments Pt able to wash her face after set-up of wash cloth. Pt refused to brush her teeth at this time when offered. OT ADL-Dressing General Eval Lower Body Dressing Ability Maximum Assistance Total Assistance Areas Needing Assistance Underpants/Brief Socks Comments OT Dressing Comments Total assist for socks, pt able to assist to roll with bed rail and MAX A X 1-2 to help to get brief on. M5 OT- IP IADL's Start: 11/09/18 14:30 Freq: Status: Active Protocol: Document 11/10/18 10:40 PJM (Rec: 11/10/18 17:25 PJM [id number]) OT-Instrumental Activities of Daily Living Deficits IADL Deficits Identified Deficits Home Safety Awareness Home Safety Comments does all IADLS at home Medication Management Medication Management Caregiver Administers Money Management Money Management Caregiver Provides Assistance Meal Preparation Meal Preparation Caregiver Provides Assist Transport Aide Transport Aide Caregiver Provides Assist Driving Driving Caregiver Provides Assist M6 OT- IP Functional Cognition Start: 11/09/18 14:30 Freq: Status: Active Protocol: Document 11/11/18 12:15 [facility] (Rec: 11/11/18 12:30 [facility] [id number]) Cognitive Factors Limiting Selfcare Function Cognitive Ability Level of Alertness Alert Drowsy Patient Orientation Age Attention Span Ability Capable of Focused Attention Unable to Sustain Attention Ability to Follow Commands Able to Follow One Step Commands Memory Description Short Term Intact Cognitive Comments Cognitive Assessment Comments Pt able to follow one step commands for bed mobility to be able to assist to roll, able to wash her face after set-up and answer questions. M7 OT- IP Mobility and Balance Start: 11/09/18 14:30 Freq: Status: Active Protocol: Document 11/11/18 12:15 [facility] (Rec: 11/11/18 12:30 [facility] [id number]) OT- Bed Mobility Assessment Rolling Type of Rolling Bilateral Level of Assistance Maximum Assistance 1 Person Assistance 2 Person Assistance Supine to Sit Supine to Sit Assist Maximum Assistance 2 Person Assistance Sit to Supine Sit to Supine Assist Maximum Assistance 2 Person Assistance OT-Transfer Assessment Comments Mobility Comments Pt needing MAX A x 2 for all bed mobility and to help sit to the edge of the bed. Pt needing MAX A x 1 to sit upright due to poor trunk control. Pt complaining of being dizzy and requesting to lie back down in bed. OT- Gait Assessment Comments Gait Ability Comments pt non ambulatory per , just transfers. OT- Balance Assessment Sitting Balance and Reactions Static Sitting Balance Ability Poor Dynamic Sitting Balance Ability Poor M8 OT- IP Objective Assessments Start: 11/09/18 14:30 Freq: Status: Active Protocol: Document 11/10/18 10:40 PJM (Rec: 11/10/18 17:25 PJM [id number]) OT Gross Range of Motion Upper Extremity Range of Motion Assessment Left Impaired ROM Impairments Passive shoulder flexion to 130 degrees, ext rot to neutral, distal PROM WFL after minimal tone inhibition but with early contracture noted in wrist/finger flexors. Pt has subluxation of L shoulder with kinesiotape in place. has been trained in kinesiotaping shoulder by therapists at [facility]. Pt uses L sling during transfers. OT Strength Upper Extremity Strength Assessment Left Impaired Shoulder 0 Elbow 1 in flexors Forearm 0 Wrist 0 Hand 0 Hand Presser And Blocker Knitted Goods Strength Hand Dominance Right Comments Strength Comments L hand non functional OT- Coordination Assessment Upper Extremity Finger to Nose Test Left UE Impaired Finger Tapping Test Left UE Impaired Comments Coordination Comments L hand non functional OT-Muscle Tone Assessment Muscle Tone WNL No Muscle Tone Location Left Upper Extremity Type of Tone Hypertonicity Severity of Tone Mild Jayde Grade Scale Grade 2 Comments Muscle Tone Comments Pt has moderately increased tone in L shoulder girdle and min increased tone in flexor groups distally. OT Sensation Assessment Location Left Arm Light Touch Impaired Deep Pressure Impaired Proprioception (Position) Impaired Tactile Localization Impaired Edema Edema Present Edema Comments min L hand edema noted M9 OT- IP Assessment and Plan Start: 11/09/18 14:30 Freq: Status: Active Protocol: Document 11/11/18 12:15 [facility] (Rec: 11/11/18 12:30 [facility] [id number]) OT Summary Assessment and Plan Potential Rehabilitation Potential Good Analytic Complexity at Evaluation Moderate Summary OT Impairments Range of Motion Strength Balance Coordination Sensation Tone Functional Cognition Functional Mobility Self-Feeding Grooming Dressing Toileting Bathing Toilet Transfers Shower Transfers Progress Towards Goals Slow Progress due to Medical Issues Slow Progress due to Activity Tolerance Slow Progress due to Cognition Assessment Summary Pt able to tolerate sitting on the edge of the bed with MAX AX 2 today and able to wash her face after set-up. However pt feeling dizzy and not wanting to do more today. Pending caregiver training suggest home with , assist and home health. Goals Self-Feeding Goal Standby Assistance Grooming Goal Standby Assistance Dressing Goal Moderate Assistance Toileting Goal Moderate Assistance Bathing Goal Moderate Assistance Toilet Transfer Goal Moderate Assistance Shower Transfer Goal Moderate Assistance Patient/Caregiver Education Goal Caregiver Independent Assisting Patient Days to Meet Goals 7 Frequency of Treatment Frequency Of Treatment Once a Day Treatment Plan OT Treatment Plan ADL Training Functional Cognition Training Functional Mobility Neuromuscular Re-education Therapeutic Exercises Vision Retraining Patient/Family Education Discharge Planning Discharge Recommendations OT Discharge Recommendations Home with 25/11 Assist Home Health
[2018-11-11] MEDS: INSULIN ASPART 100 UNIT/ML INSULN PEN SUBCUT (12:44)
[2018-11-11] MEDS: ENOXAPARIN 40 MG/0.4 ML SYRINGE SUBCUT (12:50)
[2018-11-11 13:32] LABS: Adenovirus F 40/41 Not Detected (Not Detect); Astrovirus Not Detected (Not Detect); Campylobacter Not Detected (Not Detect); Clostridium difficile toxin AB Not Detected (Not Detect); Cryptosporidium Not Detected (Not Detect); Cyclospora cayetanensis Not Detected (Not Detect); Entamoeba histolytica Not Detected (Not Detect); Enteroaggregative E.coli Not Detected (Not Detect); Enteropathogenic E.coli Not Detected (Not Detect); Enterotoxigenic E.coli It/st Not Detected (Not Detect); Giardia lamblia Not Detected (Not Detect); Norovirus GI/GII Not Detected (Not Detect); Plesiomonsa shigelloides Not Detected (Not Detect); Rotavirus A Not Detected (Not Detect); Salmonella Not Detected (Not Detect); Shiga-like toxin-prod E.coli Not Detected (Not Detect); Shigella/Enteroinvasive E.coli Not Detected (Not Detect); Vibrio Not Detected (Not Detect); Vibrio cholerae Not Detected (Not Detect); Yersinia enterocolitica Not Detected (Not Detect)
--- NOTE | 2018-11-11 16:24 | CM.DPC ---
DCP/continued: Reviewed chart. Met briefly with patient and spouse. Patient alert at time of visit and able to answer simple questions. Spouse reports that he just wants to take patient home. Current plan is home with HH resumed through [facility]. P: Home when stable. Home health will need to be resumed upon d/c. MARCELO Block
[2018-11-11] MEDS: MAGNESIUM SULFATE 2 GM/50 ML PIGGYBACK IV (17:13)
[2018-11-11] MEDS: KCL 20 MEQ IN NS 1,000 ML 84 MEQ IV (17:16)
--- NOTE | 2018-11-11 17:35 | PC.NURSE ---
Addendum entered by Evy Duong R.N. 11/11/18 21:07: Tele this shift shows NSR per ICU staff. Addendum entered by Evy Duong R.N. 11/11/18 20:59: Pt resting most evening. Denies discomfort. Dsg CDI Pt presents w/ some confusion. IVF continue as per orders w/o incidense. HS CBG = 329, S/S insulin given, Pt requests 5u per home regimen Call light w/in reach, bed alarm on for pt safety. Continue w/plan of care. Original Note: Pt awake,alert. Denies discomfort. Lungs clear/slightly diminished at bases IV KCl infused, Mg infusing via pump into RAC w/o incidense. Using bedpan frequently. Call light w/in reach, bed alarm on for pt safety.
[2018-11-11] MEDS: DOCUSATE 100 MG CAPSULE PO (20:03)
[2018-11-11] MEDS: BETHANECHOL CHLORIDE 5 MG TABLET 10 MG PO (20:03)
[2018-11-11] MEDS: ATORVASTATIN 20 MG TABLET 40 MG PO (20:05)
[2018-11-11] MEDS: GABAPENTIN 100 MG CAPSULE PO (20:06)
[2018-11-11] MEDS: MIRTAZAPINE 7.5 MG TABLET 15 MG PO (20:07)
[2018-11-11] MEDS: SENNOSIDES 8.6 MG TABLET 17.2 MG PO (20:08)
[2018-11-11] MEDS: TRAZODONE 50 MG TABLET PO (20:21)
[2018-11-12 00:15] VITALS: BP 108/63; PULSE 71; RESP 18; TEMP 37.1; O2SAT 97
--- NOTE | 2018-11-12 00:51 | PC.NURSE ---
2300- Patient resting in bed, more alert than previous days. Able to open her eyes and talk to me about her level of comfort. Cont SpO2 in place w/ stable sats on RA. Tele in place reading SR; regular diet tolerated at this point. NS w/ K+ running as ordered. BG levels checked AC/HS; pt having no difficulty voiding at this time. Daughter present in room. 0100- Pt needs new IV placed however she is refusing at this point saying she will 'go home tomorrow and doesn't need one'. 0440- Pt's IV K+ almost complete. She states she wants the IV fluids to stop. Called DELTA Dent to consult and he stated he would enter the room. 0500- Pt & family agreed to have IV fluids cont to run.
[2018-11-12] MEDS: KCL 20 MEQ IN NS 1,000 ML 84 MEQ IV (04:54)
[2018-11-12 05:41] VITALS: BP 148/84; PULSE 85; RESP 18; TEMP 36.7; O2SAT 98
[2018-11-12] MEDS: INSULIN ASPART 100 UNIT/ML INSULN PEN SUBCUT (08:10)
[2018-11-12] MEDS: METOPROLOL ER 25 MG TABLET PO (08:50)
[2018-11-12] MEDS: TAMSULOSIN 0.4 MG CAPSULE PO (08:50)
[2018-11-12] MEDS: GABAPENTIN 100 MG CAPSULE PO (08:50)
[2018-11-12] MEDS: levETIRAcetam 250 MG TABLET 500 MG PO (08:51)
[2018-11-12] MEDS: DOCUSATE 100 MG CAPSULE PO (08:51)
[2018-11-12] MEDS: BETHANECHOL CHLORIDE 5 MG TABLET 10 MG PO (08:51)
[2018-11-12] MEDS: ENOXAPARIN 40 MG/0.4 ML SYRINGE SUBCUT (08:52)
[2018-11-12 09:00] VITALS: BP 149/73; PULSE 79; RESP 18; TEMP 36.4; O2SAT 98
--- NOTE | 2018-11-12 09:26 | PC.NURSE ---
Addendum entered by Nallely Marks R.N. 11/12/18 11:05: GI/MS/DC - per spouse req, given 4mg iv zofran prior to tsf home, then iv dc'd, reviewed dc instructions with spouse and dtr, changes, no new scripts, dressed, assist w/gait belt by pulverizer and spouse into own wc and escorted to family car, all belongings packed, including blankets, clothing, cell phone and chargers. Addendum entered by Nallely Marks R.N. 11/12/18 10:16: DC - Dr. Cedeno in and met with pt, family, will dc home today, spouse will provide own wc, HH and outpt services previously arranged. Original Note: AM NOTE - pt is awake, dtr at bedside, speech is delayed, appropriate responses, pt states continues to feel weak and tired, r eye lid droop, able use r hand, contracture l hand and weakness lle and lue, voiding bedpan, ra 94%, repositioned upright and with dtr assistance, able to drink ensure and milk, given po medx one time with applesauce and swallowed without difficulty. Pt states she wants to go home, declines restart of her iv.
[2018-11-12] MEDS: ONDANSETRON 4 MG/2 ML INJ IV (10:45)
--- NOTE | 2018-11-12 10:50 | PT.IPTN ---
Current Diagnoses Nausea with vomiting, unspecified (11/07/18) Surgery Performed Operation Date: 11/10/18 13:15 Actual Procedures p Esophagogastroduodenoscopy(Not Applicable) - Sachin Zee MD Physical Therapy Treatment Note M2 PT-IP Current Condition Start: 11/08/18 12:03 Freq: NEEDED Status: Active Protocol: Document 11/11/18 11:30 AB (Rec: 11/11/18 14:14 AB [id number]) Physical Therapy Current Condition Current Condition Evaluation Date 11/11/18 Treatment Diagnosis vomiting; s/p craniotomy, CVA; generalized weakness Onset Date 11/07/18 Precautions Other Precautions falls M3 PT-IP Subjective Start: 11/08/18 12:03 Freq: NEEDED Status: Active Protocol: Document 11/12/18 10:49 GGD (Rec: 11/12/18 10:50 GGD [id number]) Subjective Physical Therapy Visit Type Notes Per RN pt D/C this AM and wait until pt's personal W/C is here to transfer out of bed.
--- NOTE | 2018-11-12 10:59 | PM.DS.1 ---
History of Present Illness Chief complaint: vomiting Narrative: Ms. Zahira Newman is a 57-year-old female patient with a past medical history significant for intracranial bleed residual left-sided weakness, discharged from inpatient rehabilitation on 11/04/2018, seizures, diabetes, hypertension and urinary tract infection treated with Levaquin completed 2 days ago who presents to the ER today with complaints of worsening nausea vomiting. History obtained from both the patient and her Codey who is at bedside. The patient initially did began developing symptoms on 11/05/2018 that seemed to subside the following day and becoming worse since 01:30 and has been progressively worsening since. The patient initially was having bilious emesis and now is only having dry heaves. The patient was discharged from inpatient rehab for her intracranial bleed for which she underwent craniectomy with replantation for cranial bone flap on 10/20/2018. The patient is son well except for recent UTI treated with Levaquin. Patient is on routine medications including Keppra for seizures which she has been unable to take due to her nausea vomiting prompting her presentation to the emergency department. The patient denies complaints headache, visual changes or other new concerning neurological deficits. Per Codey the patient has had her baseline level of function. She has had no for recent fevers or chills no complaints nasal congestion sore throat, chest pain shortness of breath cough or wheezing. Denies abdominal pain earlier in the day but reports epigastric discomfort secondary to persistent vomiting. Codey also states the patient had been on a bowel regimen which was not continued upon discharge from rehabilitation and has been struggling with constipation. Patient denies symptoms of dysuria or hematuria. The patient has left hemiparesis and neglect and had ongoing left shoulder pain due to decrease muscular tone following her stroke. The patient mobilizes in a wheelchair. Upon arrival in the ER the patient was found to be afebrile with a temperature 97.5? marginal blood pressure at 91/66, heart rate of 68, respiratory rate of 22 saturating 99% on room air. Patient underwent a CT scan of the head finds a large area of encephalomalacia overlying the right frontoparietal region with appearance of dural thickening consistent postoperative changes but small acute subdural hematoma is difficult to exclude per radiology report. [facility] neurology is consulted and reviewed the imaging and felt there were no acute changes. CT abdomen was also obtained which found cholelithiasis without evidence of cholecystitis, pericolonic inflammatory changes, a normal appendix and inflammatory thickening of the anterior bladder wall. ?Tiny? right adrenal adenoma is also noted. Laboratory studies the patient has minimally elevated white blood cell count of 12.5, hemoglobin of 12.8 and hematocrit of 38.2 with platelets of 363. She did have an initial lactate of 2.3 that was rechecked after 2 hours improving to 1.3. The patient was ketone positive on her urine but otherwise negative for other findings. Her electrolytes are within normal range and has a BUN of 19 and creatinine 1.0 nonfasting glucose of 194. She has a negative troponin at less than 0.12, negative amylase and lipase. Her procalcitonin is less than 0.05. At this time the patient is admitted to the hospital for intractable nausea and vomiting. Discharge Providers Date of admission: 11/07/18 21:11 Discharge Date: 11/12/18 Consults: 11/07/18 22:06 Consult to Dietitian, Adult Routine Comment: Reason For Exam: assessed at risk, nausea/vomiting Consult to Dietitian, Adult Routine Comment: Protein shakes since CVA in August Reason For Exam: S/P CVA on liquid diet, intractable nausea,vomitin Consult to Cracking Still Operator Routine Comment: S/P Right MCA stroke, left spastic hemiplegia 11/07/18 22:07 Consult to Discharge Planning Routine Comment: Consult to Occupational Therapy Evaluate & Treat Comment: S/P Right MCA stroke, left spastic hemiplegia Physician Instructions: Evaluate and treat 11/07/18 22:08 Consult to Physical Therapy Evaluate & Treat Comment: S/P Right MCA stroke, left spastic hemiplegia Physician Instructions: Evaluate and Treat 11/09/18 18:01 Consult to Dietitian, Adult Routine Comment: Reason For Exam: no appetite or PO intake, nausea, dry heaving 11/12/18 10:50 Consult to Home Health Routine Comment: Reason For Exam: resume home health RN,PT,OT Discharge provider: Jhonatan Cedeno MD Summary Discharge Diagnosis: 1. Intractable nausea and vomiting likely medication reaction 2. History of right MCA stroke 3. Status post decompressive craniotomy 4. History of STEMI 5. Type 2 diabetes, diet controlled 6. Chronic urinary retention 7. Depression 8. Neuropathic pain post stroke Hospital Course: Patient is 57-year-old female with history of large right MCA, s/p right frontotemporal decompressive craniectomy and temporal lobectomy on 08/29/2018 at [facility], s/p STEMI and V-tach during stroke hospitalization, status post cranioplasty on 10/20/2018, status post discharge from acute rehab on 11/04/2018 admitted to [facility] due to persistent nausea and vomiting. CT scan without significant abdominal findings. EGD also without significant finding. 1. Intractable nausea and vomiting -improving, etiology now considered due to medication side effect (Keppra, amiodarone, metformin, recently on Levaquin for UTI) -CT scan and EGD performed this admission were unremarkable - has noticed correlation of GI symptoms starting when she was put back on Keppra and improved when she had been off of Keppra -Dr. Boland had discussed clinical findings with patient's neurosurgeon at [facility], Dr. Jovanny Mackay, and patient was scheduled for LP puncture to assess opening pressure, in case it could be cause of her nausea and vomiting, Dr. Mackay also recommended tapering off Keppra. We cancelled LP puncture since she was clearly improving with appetite and not having further nausea and vomiting. But we decided to continue tapering the Keppra. -Keppra dose reduced by 50% to 500 mg daily on 11/10/2018, instructions to take Keppra for 3 more days then discontinue. -discontinued amiodarone, patient with episode of V-tach after STEMI during stroke hospitalization in August 2018, and amiodarone may also have contributed to her GI symptoms -discontinued metformin XR as possible contributor to GI symptoms -at time of discharge patient with improved oral intake in past 24 hours and not having nausea or vomiting or abdominal pain 2. History of STEMI and V-tach August 2018 -telemetry monitoring normal -per outside records, last echo 09/06/2018 showed LV EF 40-45%, needs outpatient follow-up echo, noted no symptoms of fluid overload and Lasix and potassium were stopped on October 29 -as above, discontinued amiodarone due to possible source of GI symptoms -increased metoprolol succinate ER to 25 mg daily since we have stopped amiodarone -continue low-dose aspirin, atorvastatin -patient has outpatient cardiology clinic follow-up on 11/30/2018 3. History of large right MCA stroke, due to right MCA thrombosis, status post decompressive craniotomy and subsequent cranioplasty -post CVA left spastic hemiplegia, left homonymous hemianopsia, left side visual neglect, left sensory deficit -status post acute rehab discharge on 11/04/2018 -neurologically stable, and daughter are primary caregivers -resume home health services upon discharge 4. Type 2 diabetes, insulin requiring -previously uncontrolled but patient lost significant weight after her stroke and now appears possible diet controlled -CBG in hospital less than 150 without meds -patient was recently started on metformin ER 500 mg b.i.d. from acute rehab, we discontinued metformin due to possible GI side effects -patient being discharged off of diabetes medications, will monitor CBG 2 times daily including 2 hours post meal, and review numbers with PCP, if needed she can start back on low-dose metformin XR or other oral med such as Januvia 5. Depression -continue mirtazapine and trazodone at night as needed 6. Chronic urinary retention -recurring problem since her stroke in August -continue straight cath as needed, and daughter have been previously trained for I/O catheterization -continue bethanechol and tamsulosin 7. Neuropathic pain post stroke -continue gabapentin 100 mg t.i.d. Patient will be returning home with resumption of home health RN, PT and OT. Will follow up with provider next week. Status at Discharge Cognitive/behavioral status at discharge: oriented Functional status at discharge: wheelchair bound Overall status at discharge: patient is back to baseline Time Spent with Patient Greater than 30 minutes Exam Vital Signs (past 8 hours): - 11/12/18 05:41 11/12/18 09:00 Temperature 98.0 F 97.6 F Pulse Rate 85 79 Respiratory Rate 18 18 Blood Pressure 148/84 H 149/73 H Pulse Oximetry 98 98 Oxygen Delivery Method Room Air Oxygen Flow Rate 0 Objective Labs Result Diagrams: 11/11/18 06:05 11/11/18 06:05 Labs: Laboratory Results - last 24 hr 11/11/18 12:08 Stl C. cayetanensis PCR Not detected Stool Rotavirus (PCR) Not detected Stool Adenovirus (PCR) Not detected Stool Astrovirus (PCR) Not detected Stool Cryptosporidium PCR Not detected Stl E.coli Shiga Tox PCR Not detected St Sh/Enteroin Ecoli PCR Not detected Stool E coli O157 PCR Not detected Stl Enterotoxigenic E PCR Not detected Stool EPEC (PCR) Not detected Stl E. histolytica PCR Not detected Stool Giardia Lamblia PCR Not detected Stl P. shigelloides PCR Not detected St Y.enterocolitica PCR Not detected Stool Vibrio (PCR) Not detected Stl Vibrio cholerae PCR Not detected Stl Enteroaggr Ecoli PCR Not detected Stl Norovirus GI/GII PCR Not detected Campylobacter (PCR) Not detected C. difficile Tox (PCR) Not detected Salmonella (PCR) Not detected Discharge Plan Discharge Plan Patient Disposition: Home Discharge Med Rec/Prescriptions Prescriptions: Continued atorvastatin 40 mg Tablet 40 mg PO BEDTIME RF: 0 sennosides [senna] 8.6 mg Tablet 17.2 mg PO BEDTIME RF: 0 trazodone 50 mg Tablet 25 mg PO BEDTIME PRN (Reason: Sleep) RF: 0 polyethylene glycol 3350 [Miralax] 17 gram Powder In Packet 17 g PO DAILY RF: 0 melatonin 3 mg Tablet 3 mg PO BEDTIME PRN (Reason: Sleep) RF: 0 bisacodyl 10 mg Suppository 10 mg VT DAILY PRN (Reason: Constipation) RF: 0 aspirin 81 mg Tablet,Chewable 81 mg PO DAILY RF: 0 acetaminophen 325 mg Capsule 650 mg PO Q4H PRN (Reason: Pain (Scale Score 1-3)) RF: 0 Artificial Tears (chel/min) 83-15 % Ointment 0.125 inch EYE-BOTH BEDTIME PRN (Reason: Dry Eyes) RF: 0 bethanechol chloride 10 mg Tablet 10 mg PO TID RF: 0 mirtazapine 15 mg Tablet,Disintegrating 15 mg PO BEDTIME RF: 0 tamsulosin 0.4 mg Capsule 0.4 mg PO BEDTIME RF: 0 gabapentin 100 mg Capsule 100 mg PO TID RF: 0 psyllium husk [Fiber (psyllium husk)] 0.4 gram Capsule 1 packet PO PRN PRN (Reason: Constipation) RF: 0 ondansetron HCl [Zofran] 8 mg Tablet 8 mg PO Q8-12H PRN (Reason: Nausea) RF: 0 Changed levetiracetam 500 mg Tablet 500 mg PO DAILY Qty: 0 RF: 0 metoprolol succinate 25 mg Tablet Extended Release 24 Hr 25 mg PO BEDTIME Qty: 0 RF: 0 Discontinued amiodarone 200 mg Tablet 200 mg PO DAILY RF: 0 metformin [Glucophage XR] 500 mg Tablet Extended Release 24 Hr 500 mg PO BIDWM RF: 0 Follow up/Referrals: Anali Gonzalez PA-C [Non-Staff] - Provider Discharge Instructions Diet: Diet as Tolerated Visit Report/Discharge Packet Instructions: DI for Nausea -- Adult Discharge Data Attending Provider: Horace Dent Admlidya Date/Time: 11/07/18 21:11
== END 2018-11-12 11:15 | disposition home or self-care (01) | DRG 392 ==
LOC: ED 21:06 → AC 11-08 09:29
PROVIDERS: Internal Medicine; Surgery; Admitting Provider Nurse Practitioner Adult Health; Emergency Provider Nurse Practitioner Family; Family Provider Family Medicine; Visit Provider Nurse Practitioner Adult Health
PROC: 0DJ08ZZ Inspection of Upper Intestinal Tract, Via Natural or Artificial Opening Endoscopic (ICD-10-PCS; CPT 43235; principal; 2018-11-10 13:15)
DX: R11.2 Nausea with vomiting, unspecified (principal); I69.354 Hemiplegia and hemiparesis following cerebral infarction affecting left non-dominant side; I47.2 Ventricular tachycardia; R41.4 Neurologic neglect syndrome; E44.0 Moderate protein-calorie malnutrition; E87.6 Hypokalemia; G93.89 Other specified disorders of brain; Z68.25 Body mass index [BMI] 25.0-25.9, adult; R40.0 Somnolence; T42.4X5A Adverse effect of benzodiazepines, initial encounter; E11.9 Type 2 diabetes mellitus without complications; I10 Essential (primary) hypertension; Z79.4 Long term (current) use of insulin; I25.10 Atherosclerotic heart disease of native coronary artery without angina pectoris; K59.09 Other constipation; F32.9 Major depressive disorder, single episode, unspecified; R33.9 Retention of urine, unspecified
CPT/HCPCS: 36415; 43235; 70450; 74022; 74177; 80048; 80053; 81003; 81015; 82150; 82550; 82962; 83036; 83605; 83690; 83735; 84145; 84484; 85025; 85049; 85610; 85730; 87507; 93005; 93010; 94762; 96361; 96374; 96375; 96376; 97162; 97166; 97530; 99152; 99231; 99232; 99283; 99285; C9113; J1650; J1953; J2060; J2250; J2405; J2765; J3010; J3480; Q9967

== ENCOUNTER 2018-11-16 03:35 | Emergency (ER) | payer BC, SELFPAY ==
[2018-11-07 21:59] VITALS: BMI 25.9
[2018-11-16] VITALS (9 sets, daily range): BP systolic 133–183; BP diastolic 61–123; PULSE 72–81; RESP 10–16; TEMP 36.6; O2SAT 95–99; BMI 24.9
--- NOTE | 2018-11-16 03:57 | ED.NAVMDI ---
HPI - Nausea/Vomiting/Diarrhea <Ellen Kojo, DO - Last Filed: 11/16/18 18:06> General Chief complaint: Nausea/Vomiting/Diarrhea Stated complaint: nausea Time Seen by Provider: 11/16/18 03:47 Source: patient Mode of arrival: ambulatory Limitations: no limitations History of Present Illness HPI Narrative: The patient is a 58-year-old female who presents with nausea vomiting. She has a history of hemorrhagic stroke in August which required a craniotomy and extend the day at [facility]. She has been nauseous off and on since she left however it has progressively gotten worse. She was admitted to the hospital November 07 through November 12. states that it has progressively gotten worse over last 2 days. She is back to where she started. She is often sticking her fingers down her throat because it makes her feel better. She has vomited numerous times. She feels nauseous all the time. She had an EGD which was normal during her stay last week. Related Data Home Medications Medication Instructions Recorded Confirmed Artificial Tears (chel/min) 0.125 inch EYE-BOTH BEDTIME PRN 11/07/18 11/07/18 acetaminophen 650 mg PO Q4H PRN 11/07/18 11/07/18 aspirin 81 mg PO DAILY 11/07/18 11/07/18 atorvastatin 40 mg PO BEDTIME 11/07/18 11/11/18 bisacodyl 10 mg CO DAILY PRN 11/07/18 11/07/18 melatonin 3 mg PO BEDTIME PRN 11/07/18 11/07/18 polyethylene glycol 3350 [Miralax] 17 g PO DAILY 11/07/18 11/07/18 sennosides [senna] 17.2 mg PO BEDTIME 11/07/18 11/07/18 trazodone 25 mg PO BEDTIME PRN 11/07/18 11/07/18 bethanechol chloride 10 mg PO TID 11/11/18 11/11/18 gabapentin 100 mg PO TID 11/11/18 11/11/18 mirtazapine 15 mg PO BEDTIME 11/11/18 11/11/18 ondansetron HCl [Zofran] 8 mg PO Q8-12H PRN 11/11/18 11/11/18 psyllium husk [Fiber (psyllium 1 packet PO PRN PRN 11/11/18 11/11/18 husk)] tamsulosin 0.4 mg PO BEDTIME 11/11/18 11/11/18 Previous Rx's Medication Instructions Recorded levetiracetam 500 mg PO DAILY #0 tab 11/12/18 metoprolol succinate 25 mg PO BEDTIME #0 tab 11/12/18 fluconazole [Diflucan] 100 mg PO DAILY #2 tab 11/16/18 levofloxacin [Levaquin] 750 mg PO DAILY 5 Days #5 tab 11/16/18 lorazepam [Ativan] 0.5 mg PO QD-BID PRN #10 tab 11/16/18 metoclopramide HCl [Reglan] 10 mg PO Q6H PRN #30 tab 11/16/18 quetiapine [Seroquel] 25 mg PO BEDTIME #20 tab 11/16/18 quetiapine [Seroquel] 25 mg PO BEDTIME #20 tab 11/16/18 Allergies Allergy/AdvReac Type Severity Reaction Status Date / Time lisinopril Allergy Verified 11/07/18 15:55 oxycodone Allergy Verified 11/07/18 15:55 Review of Systems <Ellen Varma DO - Last Filed: 11/16/18 18:06> Review of Systems ROS Unobtainable: All systems reviewed & are unremarkable except as noted in HPI and below Constitutional Denies chills, Denies fever(s), Denies lethargy and Denies weakness Eyes Denies change in vision, Denies eye discharge, Denies irritation and Denies loss of vision ENT Ears, Nose, Mouth, and Throat: Denies change in voice, Denies neck pain and Denies sore throat Cardiovascular Denies chest pain, Denies irregular heart rhythm, Denies lightheadedness, Denies palpitations and Denies orthopnea Gastrointestinal Gastrointestinal: Reports as per HPI Genitourinary Denies hematuria, Denies flank pain, Denies urinary incontinence and Denies urinary urgency Musculoskeletal Denies neck pain Integumentary/Breasts Denies pruritus, Denies erythema, Denies rash and Denies wounds Neurologic Denies loss of vision and Denies weakness Endocrine Denies palpitations PFSH <DO Rey Valdez Last Filed: 11/16/18 18:06> Medical History Chronic constipation (Acute) Depression (Acute) Diabetes mellitus type 2, noninsulin dependent (Acute) History of ST elevation myocardial infarction (STEMI) (Acute) History of UTI (Acute) History of right MCA stroke (Acute) History of seizures (Acute) Hypertension (Acute) Left spastic hemiplegia (Acute) Nerve pain (Acute) Surgical History History of cranioplasty (Acute) History of craniotomy (Acute) Status post craniectomy (Acute) Family History Father Hypertension Stroke Social History household members: spouse Smoking Status: Never smoker alcohol intake: never Family History Father Hypertension Stroke Social History household members: spouse Smoking Status: Never smoker alcohol intake: never Exam <Ellen Varma DO - Last Filed: 11/16/18 18:06> Initial Vital Signs Initial Vital Signs: Vital Signs Temperature 97.8 F 11/16/18 03:51 Pulse Rate 81 11/16/18 03:51 Respiratory Rate 10 L 11/16/18 03:51 Blood Pressure 183/91 H 11/16/18 03:51 Pulse Oximetry 99 11/16/18 03:51 GENERAL: Chronically ill elderly female dry heaving and in no acute distress. HEENT: Head scar noted,EOMI, pupils reactive, face symmetric CARDIOVASCULAR: Regular rate and rhythm without murmurs, rubs or gallops. RESPIRATORY: Breath sounds equal bilaterally, no wheezes rales or rhonchi. ABDOMEN: Soft, epigastric tenderness no guarding no rebound EXTREMITIES: Normal range of motion, no clubbing or edema. Neurovascularly intact NEUROLOGICAL: Alert and oriented x4.Normal gait and speech. Cranial nerves II through XII grossly intact. SKIN: Warm, dry, no laceration, no petechiae, no rashes or lesions. <Travis Rose DO - Last Filed: 11/16/18 13:51> Initial Vital Signs Initial Vital Signs: Vital Signs Temperature 97.8 F 11/16/18 03:51 Pulse Rate 81 11/16/18 03:51 Respiratory Rate 10 L 11/16/18 03:51 Blood Pressure 183/91 H 11/16/18 03:51 Pulse Oximetry 99 11/16/18 03:51 Course <Ellen Varma DO - Last Filed: 11/16/18 18:06> Orders Ordered: ED Orders 11/16/18 09:19 Urine Culture Stat Urine Microscopic Stat Discontinued Medications Sodium Chloride (Normal Saline 0.9%) 1,000 mls @ 1,000 mls/hr IV CONT MIRIAN Last Infusion: 11/16/18 05:34 Dose: 0 mls/hr Admin: 11/16/18 04:30 Dose: 1,000 mls/hr Sodium Chloride (Normal Saline 0.9%) 1,000 mls @ 1,000 mls/hr IV BOLUS ONE Stop: 11/16/18 08:15 Last Infusion: 11/16/18 09:14 Dose: 0 mls/hr Admin: 11/16/18 07:43 Dose: 1,000 mls/hr Lorazepam (Ativan) 0.5 mg IV NOW ONE Stop: 11/16/18 08:15 Last Admin: 11/16/18 09:06 Dose: 0.5 mg Metoclopramide HCl (Reglan) 10 mg IV NOW ONE Stop: 11/16/18 03:56 Last Admin: 11/16/18 04:29 Dose: 10 mg Morphine Sulfate (Morphine) 4 mg IV NOW ONE Stop: 11/16/18 07:17 Last Admin: 11/16/18 07:27 Dose: 2 mg Ondansetron HCl (Zofran) 4 mg IV NOW ONE Stop: 11/16/18 03:56 Last Admin: 11/16/18 04:29 Dose: 4 mg Ondansetron HCl (Zofran) 4 mg IV NOW ONE Stop: 11/16/18 07:17 Last Admin: 11/16/18 07:26 Dose: 4 mg Pantoprazole Sodium (Protonix) 40 mg IV NOW ONE Stop: 11/16/18 03:56 Last Admin: 11/16/18 04:28 Dose: 40 mg Potassium Chloride (Potassium Chloride) 40 meq PO NOW ONE Stop: 11/16/18 05:51 Last Admin: 11/16/18 11:05 Dose: 40 meq Vital Signs - 8 hr 11/16/18 10:30 Pulse Rate 75 Respiratory Rate 14 Blood Pressure [Right Arm] 158/92 H Pulse Oximetry 99 <Travis Rose DO - Last Filed: 11/16/18 13:51> Orders Ordered: ED Orders 11/16/18 09:19 Urine Culture Stat Urine Microscopic Stat Discontinued Medications Sodium Chloride (Normal Saline 0.9%) 1,000 mls @ 1,000 mls/hr IV CONT MIRIAN Last Infusion: 11/16/18 05:34 Dose: 0 mls/hr Admin: 11/16/18 04:30 Dose: 1,000 mls/hr Sodium Chloride (Normal Saline 0.9%) 1,000 mls @ 1,000 mls/hr IV BOLUS ONE Stop: 11/16/18 08:15 Last Infusion: 11/16/18 09:14 Dose: 0 mls/hr Admin: 11/16/18 07:43 Dose: 1,000 mls/hr Lorazepam (Ativan) 0.5 mg IV NOW ONE Stop: 11/16/18 08:15 Last Admin: 11/16/18 09:06 Dose: 0.5 mg Metoclopramide HCl (Reglan) 10 mg IV NOW ONE Stop: 11/16/18 03:56 Last Admin: 11/16/18 04:29 Dose: 10 mg Morphine Sulfate (Morphine) 4 mg IV NOW ONE Stop: 11/16/18 07:17 Last Admin: 11/16/18 07:27 Dose: 2 mg Ondansetron HCl (Zofran) 4 mg IV NOW ONE Stop: 11/16/18 03:56 Last Admin: 11/16/18 04:29 Dose: 4 mg Ondansetron HCl (Zofran) 4 mg IV NOW ONE Stop: 11/16/18 07:17 Last Admin: 11/16/18 07:26 Dose: 4 mg Pantoprazole Sodium (Protonix) 40 mg IV NOW ONE Stop: 11/16/18 03:56 Last Admin: 11/16/18 04:28 Dose: 40 mg Potassium Chloride (Potassium Chloride) 40 meq PO NOW ONE Stop: 11/16/18 05:51 Last Admin: 11/16/18 11:05 Dose: 40 meq Vital Signs - 8 hr 11/16/18 10:30 Pulse Rate 75 Respiratory Rate 14 Blood Pressure [Right Arm] 158/92 H Pulse Oximetry 99 MDM - Nausea/Vomiting/Diarrhea <Ellen Varma DO - Last Filed: 11/16/18 18:06> Lab Data Attestation: I reviewed the patient's lab results. Result diagrams: 11/16/18 04:06 11/16/18 04:06 Lab Results 11/16/18 11/16/18 11/16/18 Range/Units 04:06 04:06 09:19 WBC 14.8 H (4.5-11.0) X10^3/uL RBC 4.67 (4.0-5.2) X10^6/uL Hgb 13.6 (12.0-16.0) g/dL Hct 39.6 (36-46) % MCV 84.8 (80-100) fL MCH 29.0 (26-34) PG MCHC 34.2 (30-36) % RDW 15.7 H (11.6-14.8) % Plt Count 440 H (150-400) X10^3/uL Neut % (Auto) 80.7 H (50-75) % Lymph % (Auto) 11.0 L (25-40) % [place] % (Auto) 8.2 (3-14) % Eos % (Auto) 0.0 L (2-4) % Baso % (Auto) 0.1 (0-2) % Neut # (Auto) 81403 H (9656-9233) /uL Lymph # (Auto) 1600 (4763-3144) /uL [place] # (Auto) 1200 H (0-900) /uL Eos # (Auto) 0 (0-450) /uL Baso # (Auto) 0 (0-100) /uL Sodium 135 L (137-145) mmol/L Potassium 3.0 L (3.4-5.1) mmol/L Chloride 91 L (98-107) mmol/L Carbon Dioxide 29 (22-32) mmol/L BUN 22 H (7-17) mg/dL Creatinine 0.60 (0.52-1.04) mg/dL Estimated GFR > 60.0 (>60) mL/min BUN/Creatinine Ratio 36.7 H (6-22) Glucose 226 H D (80-110) mg/dL Calcium 9.6 (8.4-10.2) mg/dL Total Bilirubin 1.1 (0.2-1.3) mg/dL AST 17 (14-36) IU/L ALT 28 (9-52) IU/L Alkaline Phosphatase 65 (38-126) U/L Total Protein 7.3 (6.3-8.2) g/dL Albumin 4.5 (3.5-5.0) g/dL Globulin 2.8 (1.7-4.1) g/dL Albumin/Globulin Ratio 1.6 (1.0-2.8) Lipase 125 (23-300) U/L Urine RBC 1-5/hpf (0-5/HPF) Urine WBC >100/hpf H (0-5/HPF) Ur Squamous Epith Cells 1-5 /hpf (0-5/HPF) Urine Bacteria Many (>30) H (None) Urine Yeast 5-10/hpf H (None) Ur Culture Indicated? Specimen cultured Urine Dip Bedside Urine Glucose Negative Bedside Urine Bilirubin - Negative Bedside Urine Ketone +/- 5 Urine Specific [place] 1.030 Bedside Urine Occult Blood +/- Bedside Urine pH 5.0 Bedside Urine Protein +/- 15 Bedside Urine Urobilinogen - Negative Bedside Urine Nitrite - Negative Bedside Urine Leukocytes + 70 Esterase ECG Data Attestation: I personally reviewed and interpreted this ECG as follows: Prior ECG tracings: available for review Interpretation: Normal sinus rhythm rate 80 appear interval 153 Q[address] changes similar to previous EKGs MDM Narrative Medical decision making narrative: FAMILY AT BEDSIDE PATIENT IS SLEEPING AFTER MEDICATIONS. NO LONGER DRY HEAVING OR ACTIVELY VOMITING. THEY ARE CONCERNED SHE WAS TAKEN OFF SEROQUEL DURING HER REHAB STAY A STATE PREVIOUSLY SHE WAS IRRATIONAL HOWEVER SEROQUEL SEEM TO HELP HER A LOT. HOWEVER DURING REHAB SHE WAS TAKEN OFF SEROQUEL BECAUSE SHE WAS TOO SEDATED AND TOO participate in rehab. However since she has been off the Seroquel they find her very difficult to manage at home. She does not take medication, they can't help for him answer to do anything. They are requesting that she be put back on Seroquel. He also are worried because she is not eating. She is able to keep down boost and Ensure but really has no appetite. They have appointment with her new PCP in 2 days. I will refill prescription of Seroquel and start prescription of Reglan see if that helps his. At they can reassess with PCP. Patient signed out to Dr. Rose for further medical management <Travis Rose, - Last Filed: 11/16/18 13:51> Lab Data Lab Results 11/16/18 11/16/18 11/16/18 Range/Units 04:06 04:06 09:19 WBC 14.8 H (4.5-11.0) X10^3/uL RBC 4.67 (4.0-5.2) X10^6/uL Hgb 13.6 (12.0-16.0) g/dL Hct 39.6 (36-46) % MCV 84.8 (80-100) fL MCH 29.0 (26-34) PG MCHC 34.2 (30-36) % RDW 15.7 H (11.6-14.8) % Plt Count 440 H (150-400) X10^3/uL Neut % (Auto) 80.7 H (50-75) % Lymph % (Auto) 11.0 L (25-40) % [place] % (Auto) 8.2 (3-14) % Eos % (Auto) 0.0 L (2-4) % Baso % (Auto) 0.1 (0-2) % Neut # (Auto) 45830 H (8693-2156) /uL Lymph # (Auto) 1600 (9811-5145) /uL [place] # (Auto) 1200 H (0-900) /uL Eos # (Auto) 0 (0-450) /uL Baso # (Auto) 0 (0-100) /uL Sodium 135 L (137-145) mmol/L Potassium 3.0 L (3.4-5.1) mmol/L Chloride 91 L (98-107) mmol/L Carbon Dioxide 29 (22-32) mmol/L BUN 22 H (7-17) mg/dL Creatinine 0.60 (0.52-1.04) mg/dL Estimated GFR > 60.0 (>60) mL/min BUN/Creatinine Ratio 36.7 H (6-22) Glucose 226 H D (80-110) mg/dL Calcium 9.6 (8.4-10.2) mg/dL Total Bilirubin 1.1 (0.2-1.3) mg/dL AST 17 (14-36) IU/L ALT 28 (9-52) IU/L Alkaline Phosphatase 65 (38-126) U/L Total Protein 7.3 (6.3-8.2) g/dL Albumin 4.5 (3.5-5.0) g/dL Globulin 2.8 (1.7-4.1) g/dL Albumin/Globulin Ratio 1.6 (1.0-2.8) Lipase 125 (23-300) U/L Urine RBC 1-5/hpf (0-5/HPF) Urine WBC >100/hpf H (0-5/HPF) Ur Squamous Epith Cells 1-5 /hpf (0-5/HPF) Urine Bacteria Many (>30) H (None) Urine Yeast 5-10/hpf H (None) Ur Culture Indicated? Specimen cultured Urine Dip Bedside Urine Glucose Negative Bedside Urine Bilirubin - Negative Bedside Urine Ketone +/- 5 Urine Specific [place] 1.030 Bedside Urine Occult Blood +/- Bedside Urine pH 5.0 Bedside Urine Protein +/- 15 Bedside Urine Urobilinogen - Negative Bedside Urine Nitrite - Negative Bedside Urine Leukocytes + 70 Esterase MDM Narrative Medical decision making narrative: Received turned over from night provider. Performed my own history and physical exam. Reviewed patient's nodes. Patient's urine did come back positive for urinary tract infection also had yeast in her urine. Apparently she has just recently been on Levaquin for a urinary tract infection. Will restart her on Levaquin. Will also give Diflucan for the yeast. Patient felt much better after the Ativan and according to family the seems to help her better than the nausea medication. They have a follow-up with her primary doctor on Friday. She did tolerate the oral potassium. Will send home with a small prescription for Ativan. Was also given a prescription for Seroquel. They were given return precautions and follow-up instructions. They expressed understanding and agreement with plan. Discharge Plan Departure Patient Disposition: Home Clinical Impression: Gastroparesis Urinary tract infection Qualifiers: Urinary tract infection type: site unspecified Hematuria presence: without hematuria Qualified Code(s): N39.0 - Urinary tract infection, site not specified Discharge Date/Time: 11/16/18 11:00 Interventions: ED Discharge Assessment Last Done: 07/15/19 10:57 Instructions: Gastroparesis Activity Restrictions/Additional Instructions: *You have been diagnosed with gastroparesis *What to do: At this time I feel her symptoms are consistent with gastroparesis however she does need more studies done to confirm this. *Continue to take medications as directed--> SENT TO [facility] IN [place] Seroquel 25 mg at night A Reglan 10 mg every 6 hours if needed for nausea or vomiting *Follow up with your primary care provider in 2 days as previously scheduled *Return to ER if you should have inability to tolerate oral fluids, persistent vomiting, altered mental status or any new, worsening or concerning symptoms Prescriptions: New quetiapine [Seroquel] 25 mg tablet 25 mg PO BEDTIME Qty: 20 RF: 0 metoclopramide HCl [Reglan] 10 mg tablet 10 mg PO Q6H PRN (Reason: nausea and vomiting) Qty: 30 RF: 0 fluconazole [Diflucan] 100 mg tablet 100 mg PO DAILY Qty: 2 RF: 0 lorazepam [Ativan] 0.5 mg tablet 0.5 mg PO QD-BID PRN (Reason: nausea and vomiting) Qty: 10 RF: 0 levofloxacin [Levaquin] 750 mg tablet 750 mg PO DAILY 5 Days Qty: 5 RF: 0 quetiapine [Seroquel] 25 mg tablet 25 mg PO BEDTIME Qty: 20 RF: 0 No Action atorvastatin 40 mg Tablet 40 mg PO BEDTIME RF: 0 sennosides [senna] 8.6 mg Tablet 17.2 mg PO BEDTIME RF: 0 trazodone 50 mg Tablet 25 mg PO BEDTIME PRN (Reason: Sleep) RF: 0 polyethylene glycol 3350 [Miralax] 17 gram Powder In Packet 17 g PO DAILY RF: 0 melatonin 3 mg Tablet 3 mg PO BEDTIME PRN (Reason: Sleep) RF: 0 bisacodyl 10 mg Suppository 10 mg CO DAILY PRN (Reason: Constipation) RF: 0 aspirin 81 mg Tablet,Chewable 81 mg PO DAILY RF: 0 acetaminophen 325 mg Capsule 650 mg PO Q4H PRN (Reason: Pain (Scale Score 1-3)) RF: 0 Artificial Tears (chel/min) 83-15 % Ointment 0.125 inch EYE-BOTH BEDTIME PRN (Reason: Dry Eyes) RF: 0 bethanechol chloride 10 mg Tablet 10 mg PO TID RF: 0 mirtazapine 15 mg Tablet,Disintegrating 15 mg PO BEDTIME RF: 0 tamsulosin 0.4 mg Capsule 0.4 mg PO BEDTIME RF: 0 gabapentin 100 mg Capsule 100 mg PO TID RF: 0 psyllium husk [Fiber (psyllium husk)] 0.4 gram Capsule 1 packet PO PRN PRN (Reason: Constipation) RF: 0 ondansetron HCl [Zofran] 8 mg Tablet 8 mg PO Q8-12H PRN (Reason: Nausea) RF: 0 levetiracetam 500 mg Tablet 500 mg PO DAILY Qty: 0 RF: 0 metoprolol succinate 25 mg Tablet Extended Release 24 Hr 25 mg PO BEDTIME Qty: 0 RF: 0 Referrals: Karlos Restrepo MD [Physician] -
[2018-11-16] MEDS: PANTOPRAZOLE 40 MG VIAL IV (04:28)
[2018-11-16] MEDS: METOCLOPRAMIDE 10 MG/2 ML INJ IV (04:29)
[2018-11-16] MEDS: ONDANSETRON 4 MG/2 ML INJ IV ×2 (04:29→07:26)
[2018-11-16] MEDS: SODIUM CHLORIDE 0.9% 1,000 ML 1000 ML IV ×2 (04:30→07:43)
[2018-11-16 05:00] LABS: Add Manual Diff / Slide Review NO; Basophils Absolute Auto 0 /uL (0-100); Basophils Percent Auto 0.1 % (0-2); Eosinophils Absolute Auto 0 /uL (0-450); Hematocrit 39.6 % (36-46); Hemoglobin 13.6 g/dL (12.0-16.0); Lymphocytes Absolute Auto 1600 /uL (1100-4500); Mean Corpuscular HGB Conc 34.2 % (30-36); Mean Corpuscular Volume 84.8 fL (80-100); Monocytes Absolute Auto 1200 /uL (0-900); Monocytes Percent Auto 8.2 % (3-14); Neutrophils Absolute Auto 11900 /uL (1500-7000); Neutrophils Percent Auto 80.7 % (50-75); Platelet Count 440 X10^3/uL (150-400); Red Blood Cell Count 4.67 X10^6/uL (4.0-5.2); Red Cell Distribution Width 15.7 % (11.6-14.8); White Blood Cell Count 14.8 X10^3/uL (4.5-11.0)
[2018-11-16 05:02] LABS: Alanine Aminotransferase 28 IU/L (9-52); Albumin 4.5 g/dL (3.5-5.0); Albumin Globulin Ratio 1.6 (1.0-2.8); Alkaline Phosphatase 65 U/L (38-126); Aspartate Aminotransferase 17 IU/L (14-36); BUN Creatinine Ratio 36.7 (6-22); Bilirubin Total 1.1 mg/dL (0.2-1.3); Blood Urea Nitrogen 22 mg/dL (7-17); Calcium 9.6 mg/dL (8.4-10.2); Carbon Dioxide 29 mmol/L (22-32); Chloride 91 mmol/L (98-107); Estimated Glomerular Filt Rate > 60.0 mL/min (>60); Globulin 2.8 g/dL (1.7-4.1); Glucose 226 mg/dL (80-110); HEMOLYSIS < 15 (0-50); Lipase 125 U/L (23-300); Sodium 135 mmol/L (137-145); Total Protein 7.3 g/dL (6.3-8.2)
[2018-11-16] MEDS: MORPHINE 4 MG/ML INJ IV (07:27)
[2018-11-16] MEDS: LORazepam 2 MG/ML INJ 0.5 MG IV (09:06)
[2018-11-16 09:43] LABS: RBC Urine 1-5/HPF (0-5/HPF); Squamous Epithelial Cell Urine 1-5 /HPF (0-5/HPF); WBC Urine >100/HPF (0-5/HPF)
[2018-11-16 09:44] LABS: Bacteria Urine Many (>30); Culture Indicated Urine Specimen Cultured
[2018-11-16] MEDS: POTASSIUM CHLORIDE 20 MEQ/15 ML UDC 40 MEQ PO (11:05)
== END 2018-11-16 11:00 | disposition home or self-care (01) ==
PROVIDERS: Emergency Medicine; Emergency Provider Emergency Medicine; Family Provider Family Medicine
DX: K31.84 Gastroparesis (principal); N39.0 Urinary tract infection, site not specified
CPT/HCPCS: 36415; 51798; 80053; 81003; 81015; 83690; 85025; 87077; 87086; 87186; 93005; 96361; 96374; 96375; 96376; 99284; 99285; C9113; J2060; J2270; J2405; J2765

== ENCOUNTER → 2019-02-02 10:05 | Outpatient (CLI) | payer BC, SELFPAY ==
[2018-11-07 21:59] VITALS: BMI 25.9
[2019-02-02 10:50] LABS: Appearance Urine UA CLOUDY; Bilirubin Urine UA NEGATIVE (NEGATIVE); Color Urine UA YELLOW; Glucose Urine UA 2+ g/dL (Negative); Ketones Urine UA NEGATIVE (NEGATIVE); Nitrite Urine UA NEGATIVE (Negative); Occult Blood Urine UA 2+ (Negative); Protein Urine UA TRACE (Negative); Specific Gravity Urine UA 1.025 (1.000-1.035); Urobilinogen Urine UA 0.2 E.U./dL (0.2)
[2019-02-02 11:08] LABS: Leukocyte Esterase Urine UA 1+ (NEGATIVE)
[2019-02-02 11:09] LABS: Bacteria Urine Many (>30); Culture Indicated Urine Specimen Cultured; RBC Urine 10-30/HPF (0-5/HPF); Squamous Epithelial Cell Urine 1-5 /HPF (0-5/HPF); WBC Urine >100/HPF (0-5/HPF)
== END ==
PROVIDERS: PCP Student in an Organized Health Care Education/Training Program; Visit Provider Student in an Organized Health Care Education/Training Program
DX: R30.0 Dysuria (principal)
CPT/HCPCS: 81001; 87077; 87086

== ENCOUNTER → 2019-03-04 11:27 | Outpatient (CLI) | payer BC, SELFPAY ==
[2018-11-07 21:59] VITALS: BMI 25.9
--- NOTE | 2019-03-04 11:32 | DI.CT.S_ITS ---
PROCEDURE: CT HEAD/BRAIN WO CON INDICATIONS: Other specified postprocedural states TECHNIQUE: Noncontrast 4.5 mm thick angled axial sections acquired from the foramen magnum to the vertex, with coronal and sagittal reformats. For radiation dose reduction, the following was used: automated exposure control, adjustment of mA and/or kV according to patient size. COMPARISON: [facility], CT, CT HEAD WITHOUT CONTRAST, 10/09/2018, 11:11. [facility], CT, CT HEAD WITHOUT CONTRAST, 08/26/2018, 10:42. [facility], CT, CT HEAD/BRAIN WO CON, 11/07/2018, 16:51. FINDINGS: Image quality: Excellent. CSF spaces: Basal cisterns are patent. No extra-axial fluid collections. The ventricles are symmetric in size and shape. Brain: No intracranial bleeds or masses. Large right MCA territory infarct is stable in appearance compared to 11-07. No new areas of infarction identified. There is cerebral volume loss for age, with resultant ventricular and sulcal prominence. There are periventricular and deep white matter chronic small vessel ischemic changes. There is intracranial internal carotid artery atherosclerosis. Skull and face: Calvarium and visualized facial bones appear intact, without suspicious lesions. Postsurgical changes compatible with prior right [id number] craniotomy are stable compared to prior examination. Extra-axial right frontal-parietal heterotopic calcifications are stable. Sinuses: Visualized sinuses and mastoids are clear. IMPRESSION: 1. Stable examination compared to 11/07/2018 with no acute intracranial disease process. 2. Large right MCA distribution infarct is stable. 3. No new areas of infarction. 4. No acute intracranial hemorrhage. Dictated by: Cathleen Long MD, PhD on 03/04/2019 at 11:41 Approved by: Cathleen Long MD, PhD on 03/04/2019 at 12:06
== END ==
PROVIDERS: PCP Student in an Organized Health Care Education/Training Program; Visit Provider Nurse Practitioner
DX: I65.29 Occlusion and stenosis of unspecified carotid artery (principal); Z86.73 Personal history of transient ischemic attack (TIA), and cerebral infarction without residual deficits; Z98.890 Other specified postprocedural states
CPT/HCPCS: 70450

== ENCOUNTER → 2019-03-16 11:14 | Outpatient (CLI) | payer BC, SELFPAY ==
[2019-03-10 14:32] VITALS: BMI 25.9
[2019-03-16 12:56] LABS: Cholesterol 150 mg/dL (140-199); HDL Cholesterol 31 mg/dL (40-60); LDL Cholesterol Calculated 55 mg/dL (<100); Triglycerides 318 mg/dL (35-150)
[2019-03-16 13:25] LABS: Appearance Urine UA SL CLOUDY; Bilirubin Urine UA NEGATIVE (NEGATIVE); Color Urine UA YELLOW; Glucose Urine UA NEGATIVE (Negative); Ketones Urine UA NEGATIVE (NEGATIVE); Leukocyte Esterase Urine UA 2+ (NEGATIVE); Nitrite Urine UA POSITIVE (Negative); Occult Blood Urine UA TRACE-LYSED (Negative); Protein Urine UA TRACE (Negative); Urobilinogen Urine UA 0.2 E.U./dL (0.2)
[2019-03-16 13:43] LABS: pH Urine UA 6.5 (4.5-8.0)
[2019-03-16 13:50] LABS: RBC Urine 0-1/HPF (0-5/HPF); WBC Urine >100/HPF (0-5/HPF)
[2019-03-16 13:51] LABS: Bacteria Urine Moderate (10-30); Culture Indicated Urine Specimen Cultured; Squamous Epithelial Cell Urine 1-5 /HPF (0-5/HPF)
[2019-03-16 15:46] LABS: Microalbumi Creatinin Ratio Ur 230.7 ug/mg CR (<30)
[2019-03-16 15:57] LABS: Vitamin D 25 Hydroxy (D3) 28.8 ng/mL (30.0-100.0)
== END ==
PROVIDERS: PCP Student in an Organized Health Care Education/Training Program; Visit Provider Student in an Organized Health Care Education/Training Program
DX: E11.69 Type 2 diabetes mellitus with other specified complication (principal); E55.9 Vitamin D deficiency, unspecified; E78.5 Hyperlipidemia, unspecified; I10 Essential (primary) hypertension; Z79.899 Other long term (current) drug therapy; Z86.73 Personal history of transient ischemic attack (TIA), and cerebral infarction without residual deficits; R30.0 Dysuria
CPT/HCPCS: 36415; 80061; 81001; 82043; 82306; 82570; 83036; 87077; 87086; 87147; 87186

== ENCOUNTER → 2019-04-21 15:54 | Outpatient (CLI) | payer BC, SELFPAY ==
[2019-03-10 14:32] VITALS: BMI 25.9
[2019-04-21 16:06] LABS: Bacteria Urine None Seen; RBC Urine None Seen (0-5/HPF)
[2019-04-21 16:22] LABS: Appearance Urine UA CLEAR; Bilirubin Urine UA NEGATIVE (NEGATIVE); Color Urine UA YELLOW; Glucose Urine UA NEGATIVE (Negative); Ketones Urine UA 1+ (NEGATIVE); Leukocyte Esterase Urine UA NEGATIVE (NEGATIVE); Nitrite Urine UA NEGATIVE (Negative); Occult Blood Urine UA NEGATIVE (Negative); Protein Urine UA 2+ (Negative); Specific Gravity Urine UA 1.025 (1.000-1.035); Urobilinogen Urine UA 0.2 E.U./dL (0.2)
[2019-04-21 16:44] LABS: Culture Indicated Urine Cult Not Indicated; Squamous Epithelial Cell Urine 0-1 /HPF (0-5/HPF); WBC Urine 0-1/HPF (0-5/HPF); pH Urine UA 5.5 (4.5-8.0)
== END ==
PROVIDERS: PCP Student in an Organized Health Care Education/Training Program; Visit Provider Student in an Organized Health Care Education/Training Program
DX: R30.0 Dysuria (principal)
CPT/HCPCS: 81001

== ENCOUNTER 2019-04-21 17:41 | Emergency (ER) | payer BC, SELFPAY ==
[2019-03-10 14:32] VITALS: BMI 25.9
[2019-04-21 17:56] VITALS: BP 170/88; PULSE 95; RESP 15; TEMP 36.7; O2SAT 100; BMI 27.4
--- NOTE | 2019-04-21 18:07 | ED_ITS ---
HPI - Recheck/Abnormal Lab/Rx General Chief Complaint: Recheck/Abnormal Lab/Rx Stated Complaint: sent by MD for Ketoacidosis Time Seen by Provider: 04/21/19 17:50 Source: patient Mode of arrival: Ambulatory Limitations: no limitations History of Present Illness HPI narrative: Patient is a 58-year-old female of hemorrhagic stroke in August 2018 requiring craniotomy, type 2 [id number] diabetes and gastropa resis who presents at request of her PCP for possible DKA. She started dry heaving and nausea which started yesterday. She has some epigastric pain as well but no real abdominal pain. This has happened to her in the past. She has not had any fever or chills. She was seen by her PCP today who did no ketones in her urine and sent her to the emergency department for further evaluation. MD complaint: abnormal lab Related Data Home Medications Medication Instructions Recorded Confirmed Artificial Tears (chel/min) 0.125 inch EYE-BOTH BEDTIME PRN 11/07/18 04/21/19 acetaminophen 650 mg PO Q4H PRN 11/07/18 04/21/19 aspirin 81 mg PO DAILY 11/07/18 04/21/19 sennosides 8.6 mg tablet 8.6 mg PO DAILY tab 01/12/19 04/21/19 oxcarbazepine 300 mg 600 mg PO BID tab 04/21/19 04/21/19 tablet,extended release 24 hr Previous Rx's Medication Instructions Recorded metoprolol succinate 25 mg 25 mg PO BEDTIME #90 tab 12/07/18 tablet,extended release 24 hr quetiapine 25 mg tablet 25 mg PO BEDTIME #90 tab 12/07/18 tamsulosin 0.4 mg capsule 0.4 mg PO BEDTIME #90 cap 12/07/18 trazodone 50 mg tablet 25 mg PO BEDTIME PRN #90 tab 12/07/18 gabapentin 100 mg capsule 100 mg PO TID #270 cap 12/21/18 atorvastatin 40 mg tablet 40 mg PO BEDTIME #90 tab 01/27/19 glipizide 5 mg tablet 5 mg PO BID #60 tab 03/04/19 ondansetron 4 mg PO Q8H PRN #10 tab 04/21/19 Allergies Allergy/AdvReac Type Severity Reaction Status Date / Time levetiracetam [From Keppra] Allergy Intermediate VOMITING Verified 04/21/19 17:56 lisinopril Allergy Verified 04/21/19 17:56 oxycodone Allergy Verified 04/21/19 17:56 empagliflozin AdvReac Intermediate Frequent Verified 04/21/19 17:56 [From Jardiance] UTIs metformin AdvReac Intermediate diarrhea, Verified 04/21/19 17:56 abdominal pain Review of Systems Review of Systems Narrative: GENERAL: Denies chills, fatigue, malaise, fever, sweats, travel HEENT: Denies sinus pain, ear pain, sore throat, difficulty swallowing, neck pain RESPIRATORY: Denies dyspnea, cough, wheezing, hemoptysis, sputum. CARDIOVASCULAR: Denies chest pain, palpitations, orthopnea, edema GASTROINTESTINAL: See HPI : Denies dysuria, frequency, incontinence, hematuria, urinary retention, flank pain. MUSCULOSKELETAL: Denies weakness, joint pain, or bony pain SKIN: No rash, no erythema, no pruritus NEUROLOGIC: Denies weakness, dizziness, headache, numbness, change in speech, confusion PSYCHIATRIC: No concerning psychosocial issues. 12 point review of systems is negative except for those stated above and HPI Patient History Medical History Cardiac arrhythmia (Chronic ~2019) Chronic constipation (Chronic) Depression (Chronic) Diabetes mellitus type 2, noninsulin dependent (Chronic) Gastroparesis (Chronic ~2019) History of right MCA stroke (Chronic ~08/25/18) History of seizures (Chronic) History of ST elevation myocardial infarction (STEMI) (Chronic) History of UTI (Chronic) Hypertension (Chronic) Left spastic hemiplegia (Chronic) Nerve pain (Chronic) Vision disorder (Chronic) Surgical History Anesthesia (Resolved) History of cranioplasty (Resolved) History of craniotomy (Resolved) Status post craniectomy (Resolved) Family History Father Hypertension Stroke Mother Kidney failure Social History household members: spouse Smoking Status: Never smoker alcohol intake: never Smoking Status: Never smoker Substance Use Type: does not use Exam Initial Vital Signs Initial Vital Signs: Vital Signs Temperature 98.1 F 04/21/19 17:56 Pulse Rate 95 H 04/21/19 17:56 Respiratory Rate 15 04/21/19 17:56 Blood Pressure 170/88 H 04/21/19 17:56 Pulse Oximetry 100 04/21/19 17:56 GENERAL: Awake alert female actively dry heaving and nauseous HEENT: Head atraumatic postsurgical changes noted,EOMI, pupils reactive, face symmetric CARDIOVASCULAR: Regular rate and rhythm without murmurs, rubs or gallops. RESPIRATORY: Breath sounds equal bilaterally, no wheezes rales or rhonchi. ABDOMEN: Soft, mild epigastric pain no guarding no rebound no right upper quadrant pain negative Julian sign no lower abdominal pain EXTREMITIES: Normal range of motion, no clubbing or edema. Neurovascularly intact NEUROLOGICAL: Alert and oriented x4.Normal gait and speech. SKIN: Warm, dry, no laceration, no petechiae, no rashes or lesions. Course Orders Ordered: ED Orders 04/21/19 18:00 Complete Blood Count AUTO DIFF Stat Comprehensive Metabolic Panel Stat Ketones (Beta-Hydroxybutyrate) Stat Lactate (Lactic Acid) Stat Lipase Stat Procalcitonin Stat 04/21/19 18:52 EKG-12 Lead Stat Discontinued Medications Sodium Chloride (Normal Saline 0.9%) 1,000 mls @ 1,000 mls/hr IV BOLUS ONE Stop: 04/21/19 19:23 Last Infusion: 04/21/19 19:33 Dose: 0 mls/hr Documented by: Admin: 04/21/19 18:32 Dose: 1,000 mls/hr Documented by: FAITH Ondansetron HCl (Zofran) 4 mg IV NOW ONE Stop: 04/21/19 18:25 Last Admin: 04/21/19 18:32 Dose: 4 mg Documented by: FAITH Ondansetron HCl (Zofran Odt Prepack) 1 bottle MISC SEEINSTR ONE Stop: 04/21/19 19:47 Last Admin: 04/21/19 19:49 Dose: 1 bottle Documented by: FAITH Pantoprazole Sodium (Protonix) 40 mg IV NOW ONE Stop: 04/21/19 18:25 Last Admin: 04/21/19 18:32 Dose: 40 mg Documented by: FAITH Vital Signs Vital signs: Vital Signs - 8 hr 04/21/19 17:56 04/21/19 18:11 04/21/19 19:34 Temperature 98.1 F Pulse Rate 95 H 93 H 91 H Respiratory Rate 15 15 17 Blood Pressure 170/88 H Blood Pressure [Right Arm] 173/84 H 171/79 H Pulse Oximetry 100 97 100 MDM - Recheck/Abnormal Lab/Rx Lab Data Attestation: I reviewed the patient's lab results. Result diagrams: 04/21/19 18:00 04/21/19 18:00 Labs: Lab Results 04/21/19 04/21/19 04/21/19 Range/Units 18:00 18:00 18:00 WBC 10.4 (4.5-11.0) X10^3/uL RBC 4.76 (4.0-5.2) X10^6/uL Hgb 14.4 (12.0-16.0) g/dL Hct 41.4 (36-46) % MCV 86.9 (80-100) fL MCH 30.2 (26-34) PG MCHC 34.7 (30-36) % RDW 13.2 (11.6-14.8) % Plt Count 329 (150-400) X10^3/uL Neut % (Auto) 87.1 H (50-75) % Lymph % (Auto) 9.6 L (25-40) % [place] % (Auto) 2.8 L (3-14) % Eos % (Auto) 0.0 L (2-4) % Baso % (Auto) 0.5 (0-2) % Neut # (Auto) 9100 H (9599-8400) /uL Lymph # (Auto) 1000 L (4930-9074) /uL [place] # (Auto) 300 (0-900) /uL Eos # (Auto) 0 (0-450) /uL Baso # (Auto) 100 (0-100) /uL Sodium 134 L (137-145) mmol/L Potassium 4.2 (3.4-5.1) mmol/L Chloride 94 L (98-107) mmol/L Carbon Dioxide 27 (22-32) mmol/L BUN 15 (7-17) mg/dL Creatinine 0.50 L (0.52-1.04) mg/dL Estimated GFR > 60.0 (>60) mL/min BUN/Creatinine Ratio 30.0 H (6-22) Glucose 180 H (80-110) mg/dL Lactate (0.7-2.1) mmol/L Calcium 10.1 (8.4-10.2) mg/dL Total Bilirubin 0.5 (0.2-1.3) mg/dL AST 22 (14-36) IU/L ALT 22 (<35) IU/L Alkaline Phosphatase 118 (38-126) U/L Total Protein 8.2 (6.3-8.2) g/dL Albumin 5.0 (3.5-5.0) g/dL Globulin 3.2 (1.7-4.1) g/dL Albumin/Globulin Ratio 1.6 (1.0-2.8) Lipase (23-300) U/L Procalcitonin < 0.05 (<0.5) ng/mL Ketones 0.77 H (<0.27) mmol/L 04/21/19 04/21/19 Range/Units 18:00 18:00 WBC (4.5-11.0) X10^3/uL RBC (4.0-5.2) X10^6/uL Hgb (12.0-16.0) g/dL Hct (36-46) % MCV (80-100) fL MCH (26-34) PG MCHC (30-36) % RDW (11.6-14.8) % Plt Count (150-400) X10^3/uL Neut % (Auto) (50-75) % Lymph % (Auto) (25-40) % [place] % (Auto) (3-14) % Eos % (Auto) (2-4) % Baso % (Auto) (0-2) % Neut # (Auto) (9887-0221) /uL Lymph # (Auto) (9549-1787) /uL [place] # (Auto) (0-900) /uL Eos # (Auto) (0-450) /uL Baso # (Auto) (0-100) /uL Sodium (137-145) mmol/L Potassium (3.4-5.1) mmol/L Chloride (98-107) mmol/L Carbon Dioxide (22-32) mmol/L BUN (7-17) mg/dL Creatinine (0.52-1.04) mg/dL Estimated GFR (>60) mL/min BUN/Creatinine Ratio (6-22) Glucose (80-110) mg/dL Lactate 2.1 (0.7-2.1) mmol/L Calcium (8.4-10.2) mg/dL Total Bilirubin (0.2-1.3) mg/dL AST (14-36) IU/L ALT (<35) IU/L Alkaline Phosphatase (38-126) U/L Total Protein (6.3-8.2) g/dL Albumin (3.5-5.0) g/dL Globulin (1.7-4.1) g/dL Albumin/Globulin Ratio (1.0-2.8) Lipase 104 (23-300) U/L Procalcitonin (<0.5) ng/mL Ketones (<0.27) mmol/L Point of Care Testing Glucose POC 156 MDM Narrative Medical decision making narrative: Patient has no signs of DKA. No anion gap or elevated glucose. She has possible history of gastroparesis, her symptoms improv ed after 1 L of IV fluid and Zofran she is now tolerating oral fluids she feels much better. At this time she is at her baseline mental status I don't believe imaging of head is indicated at this time. Discussed rehydration technique with only and possible further evaluation and study for gastroparesis. Discharge Plan Departure Patient Disposition: Home Clinical Impression: Vomiting Qualifiers: Vomiting type: unspecified Vomiting Intractability: non-intractable Nausea presence: with nausea Qualified Code(s): R11.2 - Nausea with vomiting, unspecified Discharge Date/Time: 04/21/19 19:51 Instructions: DI for Vomiting -- Adult, Gastroparesis Activity Restrictions/Additional Instructions: 1) You have been diagnosed with vomiting, possible gastroparesis Recommend talking with Dr. Beard in regards to further studies for possible gastroparesis 2) What to do: Drink frequent but small amounts of fluids. I recommend Gatorade or a Gatorade-like product, as it has small amounts of sugar and salts that improve fluid retention. 3) Take medications as directed Zofran 4 mg every 8 hours if needed for nausea or vomiting 4) Follow up with your primary care provider in 2-3 days 5) Return to ER if you should have any new or worsening symptoms such as, unable to hold down fluids despite use of anti-nausea medications and the small volume oral rehydration strategy. Prescriptions: New ondansetron 4 mg tablet,disintegrating 4 mg PO Q8H PRN (Reason: nausea and vomiting) Qty: 10 RF: 0 No Action quetiapine [Seroquel] 25 mg tablet 25 mg PO BEDTIME Qty: 90 RF: 1 tamsulosin 0.4 mg capsule 0.4 mg PO BEDTIME Qty: 90 RF: 1 metoprolol succinate 25 mg tablet extended release 24 hr 25 mg PO BEDTIME Qty: 90 RF: 1 trazodone 50 mg tablet 25 mg PO BEDTIME PRN (Reason: Sleep) Qty: 90 RF: 1 gabapentin 100 mg capsule 100 mg PO TID Qty: 270 RF: 1 atorvastatin 40 mg tablet 40 mg PO BEDTIME Qty: 90 RF: 1 glipizide 5 mg tablet 5 mg PO BID Qty: 60 RF: 5 sennosides [senna] 8.6 mg tablet 8.6 mg PO DAILY RF: 0 Oxtellar XR 300 mg tablet extended release 24 hr 600 mg PO BID RF: 0 aspirin 81 mg Tablet,Chewable 81 mg PO DAILY RF: 0 acetaminophen 325 mg Capsule 650 mg PO Q4H PRN (Reason: Pain (Scale Score 1-3)) RF: 0 Artificial Tears (chel/min) 83-15 % Ointment 0.125 inch EYE-BOTH BEDTIME PRN (Reason: Dry Eyes) RF: 0 Referrals: Karlos Restrepo MD [Primary Care Provider] -
[2019-04-21 18:11] VITALS: BP 173/84; PULSE 93; RESP 15; O2SAT 97
[2019-04-21] MEDS: SODIUM CHLORIDE 0.9% 1,000 ML 1000 ML IV (18:32)
[2019-04-21] MEDS: ONDANSETRON 4 MG/2 ML INJ IV (18:32)
[2019-04-21] MEDS: PANTOPRAZOLE 40 MG VIAL IV (18:32)
[2019-04-21 18:34] LABS: Add Manual Diff / Slide Review NO; Basophils Absolute Auto 100 /uL (0-100); Basophils Percent Auto 0.5 % (0-2); Eosinophils Absolute Auto 0 /uL (0-450); Hematocrit 41.4 % (36-46); Hemoglobin 14.4 g/dL (12.0-16.0); Lymphocytes Absolute Auto 1000 /uL (1100-4500); Lymphocytes Percent Auto 9.6 % (25-40); Mean Corpuscular HGB Conc 34.7 % (30-36); Mean Corpuscular Hemoglobin 30.2 PG (26-34); Mean Corpuscular Volume 86.9 fL (80-100); Monocytes Absolute Auto 300 /uL (0-900); Monocytes Percent Auto 2.8 % (3-14); Neutrophils Absolute Auto 9100 /uL (1500-7000); Neutrophils Percent Auto 87.1 % (50-75); Platelet Count 329 X10^3/uL (150-400); Red Blood Cell Count 4.76 X10^6/uL (4.0-5.2); Red Cell Distribution Width 13.2 % (11.6-14.8); White Blood Cell Count 10.4 X10^3/uL (4.5-11.0)
[2019-04-21 18:43] LABS: Lactate (Lactic Acid) 2.1 mmol/L (0.7-2.1)
[2019-04-21 18:44] LABS: Alanine Aminotransferase 22 IU/L (<35); Albumin Globulin Ratio 1.6 (1.0-2.8); Alkaline Phosphatase 118 U/L (38-126); Aspartate Aminotransferase 22 IU/L (14-36); Bilirubin Total 0.5 mg/dL (0.2-1.3); Blood Urea Nitrogen 15 mg/dL (7-17); Calcium 10.1 mg/dL (8.4-10.2); Carbon Dioxide 27 mmol/L (22-32); Chloride 94 mmol/L (98-107); Estimated Glomerular Filt Rate > 60.0 mL/min (>60); Globulin 3.2 g/dL (1.7-4.1); Glucose 180 mg/dL (80-110); HEMOLYSIS < 15 (0-50); Potassium 4.2 mmol/L (3.4-5.1); Sodium 134 mmol/L (137-145); Total Protein 8.2 g/dL (6.3-8.2)
[2019-04-21 18:47] LABS: Ketones (Beta-Hydroxybutyrate) 0.77 mmol/L (<0.27)
[2019-04-21 19:00] LABS: Procalcitonin < 0.05 ng/mL (<0.5)
[2019-04-21 19:34] VITALS: BP 171/79; PULSE 91; RESP 17; O2SAT 100
[2019-04-21 19:38] LABS: Lipase 104 U/L (23-300)
[2019-04-21] MEDS: ONDANSETRON 4 MG ODT PREPACK 1 BOTTLE MISC (19:49)
== END 2019-04-21 19:51 | disposition home or self-care (01) ==
PROVIDERS: Emergency Provider Emergency Medicine; Family Provider Student in an Organized Health Care Education/Training Program; PCP Student in an Organized Health Care Education/Training Program
DX: R11.2 Nausea with vomiting, unspecified (principal); R30.0 Dysuria
CPT/HCPCS: 36415; 80053; 81001; 82009; 82962; 83605; 83690; 84145; 85025; 93005; 96361; 96374; 96375; 99284; C9113; J2405

== ENCOUNTER → 2019-06-08 09:34 | Outpatient (CLI) | payer OTHER, SELFPAY ==
[2019-03-10 14:32] VITALS: BMI 25.9
== END ==
PROVIDERS: Family Provider Student in an Organized Health Care Education/Training Program; PCP Student in an Organized Health Care Education/Training Program; Referring Provider Student in an Organized Health Care Education/Training Program; Visit Provider Student in an Organized Health Care Education/Training Program
DX: E11.9 Type 2 diabetes mellitus without complications (principal)
CPT/HCPCS: 36415; 83036

== ENCOUNTER → 2019-12-08 11:25 | Outpatient (CLI) | payer OTHER, SELFPAY ==
[2019-11-29 15:01] VITALS: BMI 25.9
[2019-12-08 11:50] LABS: Hemoglobin A1C% w Est Avg Glu 6.2 % (4.0-6.0)
== END ==
PROVIDERS: Family Provider Student in an Organized Health Care Education/Training Program; PCP Student in an Organized Health Care Education/Training Program; Referring Provider Student in an Organized Health Care Education/Training Program; Visit Provider Student in an Organized Health Care Education/Training Program
DX: E11.9 Type 2 diabetes mellitus without complications (principal)
CPT/HCPCS: 36415; 83036

== ENCOUNTER → 2020-05-10 10:39 | Outpatient (CLI) | payer OTHER, SELFPAY ==
[2019-11-29 15:01] VITALS: BMI 25.9
[2020-05-10 12:21] LABS: Hemoglobin A1C% w Est Avg Glu 6.6 % (4.0-6.0)
[2020-05-10 13:03] LABS: BUN Creatinine Ratio 31.2 (6-22); Blood Urea Nitrogen 24 mg/dL (7-17); Calcium 9.3 mg/dL (8.4-10.2); Carbon Dioxide 30 mmol/L (22-32); Chloride 101 mmol/L (98-107); Estimated Glomerular Filt Rate > 60.0 mL/min (>60); Glucose 159 mg/dL (80-110); HEMOLYSIS < 15 (0-50); Potassium 3.9 mmol/L (3.4-5.1); Sodium 138 mmol/L (137-145)
[2020-05-10 17:46] LABS: Microalbumi Creatinin Ratio Ur 20.9 ug/mg CR (<30); Microalbumin Urine Random 3.1 mg/dL (0-1.6)
== END ==
PROVIDERS: Family Provider Student in an Organized Health Care Education/Training Program; PCP Student in an Organized Health Care Education/Training Program; Referring Provider Student in an Organized Health Care Education/Training Program; Visit Provider Student in an Organized Health Care Education/Training Program
DX: E11.9 Type 2 diabetes mellitus without complications (principal); I10 Essential (primary) hypertension
CPT/HCPCS: 36415; 80048; 82043; 82570; 83036

== ENCOUNTER → 2020-07-14 10:06 | Outpatient (CLI) | payer OTHER, SELFPAY ==
[2019-11-29 15:01] VITALS: BMI 25.9
[2020-07-14] MEDS: COVID-19 VACC, Ad26(JANSSEN)/PF 0.5 ML IM (10:12)
== END ==
PROVIDERS: Family Provider Student in an Organized Health Care Education/Training Program; PCP Student in an Organized Health Care Education/Training Program; Visit Provider Internal Medicine
DX: Z23 Encounter for immunization (principal)
CPT/HCPCS: 0031A; 91303

== ENCOUNTER 2020-08-05 19:31 | Emergency (ER) | payer OTHER, SELFPAY ==
[2019-11-29 15:01] VITALS: BMI 25.9
[2020-08-05 19:40] VITALS: BP 206/114; PULSE 107; RESP 15; TEMP 36.7; O2SAT 97; BMI 27.4
[2020-08-05] MEDS: ONDANSETRON 4 MG ODT SL (19:48)
--- NOTE | 2020-08-05 19:53 | ED_ITS ---
HPI - Nausea/Vomiting/Diarrhea General Chief complaint: Urogenital-Female Stated complaint: UTI Time Seen by Provider: 08/05/20 19:32 Source: patient Mode of arrival: Wheelchair Limitations: no limitations History of Present Illness HPI Narrative: 59-year-old female nonsmoker with history of coronary artery disease, stroke, hypertension and CVA with left-sided weakness presents with nausea and vomiting and generally feeling a bit ?punky? since last night. She states she thinks she has urinary tract infection as this is how she always feels under those circumstances. However, she denies dysuria, frequency, ur gency, foul-smelling urine or hematuria but states she never has those findings or complaints with a urinary tract infection. She denies any neurologic symptoms such as blurred vision, headache, numbness, tingling. She denies any chest pain or shortness of breath. She denies any abdominal pain. She does state that she missed taking her blood pressure medications last night and questions the role of that in her presentation today. MD complaint: nausea and vomiting Onset (ago): hour(s) Description of Vomiting: food contents Description of Diarrhea: none Relieving factors: none Exacerbating factors: none Related Data Home Medications Medication Instructions Recorded Confirmed acetaminophen 650 mg PO Q4H PRN 11/07/18 05/10/20 aspirin 81 mg PO DAILY 11/07/18 05/10/20 sennosides 8.6 mg tablet 8.6 mg PO DAILY tab 01/12/19 05/10/20 metoprolol succinate 25 mg 25 mg PO DAILY 05/10/20 05/10/20 tablet,extended release 24 hr Previous Rx's Medication Instructions Recorded lancets #100 each 06/22/19 testing strips #100 each 06/22/19 glipizide 5 mg tablet 5 mg PO BID #180 tab 02/11/20 oxcarbazepine 300 mg 600 mg PO BID #360 tab 06/19/20 tablet,extended release 24 hr Disabled Parking Permit #1 ea 07/05/20 atorvastatin 40 mg tablet 40 mg PO BEDTIME #90 tab 07/31/20 gabapentin 100 mg capsule 100 mg PO TID #270 cap 07/31/20 quetiapine 25 mg tablet 25 mg PO BEDTIME #90 tab 07/31/20 tamsulosin 0.4 mg capsule 0.4 mg PO BEDTIME #90 cap 07/31/20 trazodone 50 mg tablet 25 mg PO BEDTIME PRN #45 tab 07/31/20 ciprofloxacin HCl [Cipro] 500 mg PO BID #14 tab 08/05/20 Allergies Allergy/AdvReac Type Severity Reaction Status Date / Time levetiracetam [From [facility]] Allergy Intermediate VOMITING Verified 08/05/20 19:45 lisinopril Allergy Verified 08/05/20 19:45 oxycodone Allergy Verified 08/05/20 19:45 empagliflozin AdvReac Intermediate Frequent Verified 08/05/20 19:45 [From Jardiance] UTIs metformin AdvReac Intermediate diarrhea, Verified 08/05/20 19:45 abdominal pain Review of Systems Constitutional Constitutional: Denies chills, Denies fatigue, Denies fever(s), Denies frequent falls, Denies lethargy and Denies weakness Eyes Eyes: Denies change in vision, Denies eye discharge, Denies irritation and Denies loss of vision ENT Ears, Nose, Mouth, and Throat: Denies change in voice, Denies dizziness, Denies neck pain, Denies sore throat and Denies throat swelling Cardiovascular Cardiovascular: Denies chest pain, Denies irregular heart rhythm, Denies lightheadedness, Denies palpitations, Denies dyspnea, Denies dyspnea on exertion and Denies orthopnea Respiratory Respiratory: Denies cough, Denies dyspnea, Denies dyspnea on exertion and Denies wheezing Gastrointestinal Gastrointestinal: Denies abdominal pain, Denies change in bowel habits, Denies diarrhea, Reports nausea and Reports vomiting Musculoskeletal Musculoskeletal: Denies neck pain and Denies numbness Integumentary/Breasts Skin/Breast: Denies pruritus, Denies erythema, Denies rash and Denies wounds Neurologic Neurologic: Denies behavioral changes, Denies confusion, Denies dizziness, Denies frequent falls, Denies loss of vision, Denies numbness and Denies weakness Psychiatric Psychiatric: Denies anxiety, Denies behavioral changes, Denies confusion, Denies depression, Denies homicidal ideation and Denies suicidal ideation Endocrine Endocrine: Denies fatigue, Denies flushing and Denies palpitations Hematologic/Lymphatic Hematologic/Lymphatic: Denies easy bruising Allergic/Immunologic Allergic/Immunologic: Denies urticaria, Denies throat swelling and Denies wheezing Patient History Medical History (Updated 08/05/20 @ 21:48 by Black Carter DO) Cardiac arrhythmia (~2019) Chronic constipation Depression Diabetes mellitus type 2, noninsulin dependent Gastroparesis (~2019) History of right MCA stroke (~08/25/18) History of seizures History of ST elevation myocardial infarction (STEMI) History of UTI Hypertension Left spastic hemiplegia Nerve pain Vision disorder Surgical History Anesthesia History of cranioplasty History of craniotomy Status post craniectomy Family History Father Hypertension Stroke Mother Kidney failure Social History household members: spouse Smoking Status: Never smoker alcohol intake: never Smoking Status: Never smoker Substance Use Type: does not use Exam Narrative Exam Narrative: GENERAL: [59] year old patient appears stated age. Well- nourished, well-developed patient, in mild distress. GCS 15 HEAD: Atraumatic. Normocephalic. EYES: Pupils equal round and reactive. Extraocular motions intact. No scleral icterus. No injection or drainage. ENT: No dental injury, gingival erythema swelling or fluctuance. Nose without bleeding, purulent drainage. Throat without erythema, tonsillar hypertrophy or exudate. Airway patent. NECK: Trachea midline. Non tender CARDIOVASCULAR: Regular rate and rhythm without murmurs, gallops, or rubs. RESPIRATORY: Clear to auscultation. Breath sounds equal bilaterally. No wheezes, rales, or rhonchi. GASTROINTESTINAL: Abdomen soft, non-tender, nondistended. EXTREMITIES: No edema or joint tenderness. BACK: Nontender without deformity or crepitance. No flank tenderness. NEURO: AOx3. Left-sided weakness consistent with old stroke SKIN: No rash or erythema of visible areas Initial Vital Signs Initial Vital Signs: Vital Signs Temperature 98.0 F 08/05/20 19:40 Pulse Rate 107 H 08/05/20 19:40 Respiratory Rate 15 08/05/20 19:40 Blood Pressure 206/114 H 08/05/20 19:40 Pulse Oximetry 97 08/05/20 19:40 Course Orders Ordered: ED Orders 08/05/20 20:09 Complete Blood Count AUTO DIFF Stat Comprehensive Metabolic Panel Stat Troponin & CK Cardiac Panel Stat 08/05/20 21:38 Urine Microscopic Stat Discontinued Medications Sodium Chloride (Normal Saline 0.9%) 1,000 mls @ 1,000 mls/hr IV BOLUS ONE Stop: 08/05/20 21:00 Last Infusion: 08/05/20 21:44 Dose: Infused Documented by: Levofloxacin (Levofloxacin 250 Mg Tablet) 500 mg PO NOW ONE Stop: 08/05/20 21:44 Metoprolol Tartrate (Metoprolol Ir 25 Mg Tablet) 50 mg PO NOW ONE Stop: 08/05/20 20:17 Last Admin: 08/05/20 20:21 Dose: 50 mg Documented by: Ondansetron HCl (Ondansetron 4 Mg Odt) 4 mg SL NOW ONE Stop: 08/05/20 19:45 Last Admin: 08/05/20 19:48 Dose: 4 mg Documented by: RAND Vital Signs Vital signs: Vital Signs - 8 hr 08/05/20 19:40 08/05/20 20:01 Temperature 98.0 F Pulse Rate 107 H 98 H Respiratory Rate 15 Blood Pressure 206/114 H 185/88 H Pulse Oximetry 97 MDM - Nausea/Vomiting/Diarrhea Lab Data Result diagrams: 08/05/20 20:09 08/05/20 20:09 Labs: Lab Results 08/05/20 08/05/20 Range/Units 20:09 20:09 WBC 11.6 H (4.5-11.0) X10^3/uL RBC 4.99 (4.0-5.2) X10^6/uL Hgb 14.8 (12.0-16.0) g/dL Hct 43.3 (36-46) % MCV 86.8 (80-100) fL MCH 29.8 (26-34) PG MCHC 34.3 (30-36) % RDW 13.1 (11.6-14.8) % Plt Count 339 (150-400) X10^3/uL Neut % (Auto) 81.5 H (50-75) % Lymph % (Auto) 12.7 L (25-40) % [place] % (Auto) 4.7 (3-14) % Eos % (Auto) 0.3 L (2-4) % Baso % (Auto) 0.8 (0-2) % Neut # (Auto) 9500 H (8698-7065) /uL Lymph # (Auto) 1500 (2677-9286) /uL [place] # (Auto) 500 (0-900) /uL Eos # (Auto) 0 (0-450) /uL Baso # (Auto) 100 (0-100) /uL Sodium 131 L (137-145) mmol/L Potassium 4.3 (3.4-5.1) mmol/L Chloride 93 L (98-107) mmol/L Carbon Dioxide 25 (22-32) mmol/L BUN 11 (7-17) mg/dL Creatinine 0.64 (0.52-1.04) mg/dL Estimated GFR > 60.0 (>60) mL/min BUN/Creatinine Ratio 17.2 (6-22) Glucose 189 H (80-110) mg/dL Calcium 9.8 (8.4-10.2) mg/dL Total Bilirubin 0.3 (0.2-1.3) mg/dL AST 27 (14-36) IU/L ALT 38 H (<35) IU/L Alkaline Phosphatase 124 (38-126) U/L Total Creatine Kinase 52 (30-135) U/L CK-MB (CK-2) TNP CK-MB (CK-2) Rel Index TNP Troponin I < 0.012 (0.01-0.034) ng/mL Total Protein 7.7 (6.3-8.2) g/dL Albumin 4.5 (3.5-5.0) g/dL Globulin 3.2 (1.7-4.1) g/dL Albumin/Globulin Ratio 1.4 (1.0-2.8) Urine Dip Bedside Urine Glucose Negative Bedside Urine Bilirubin - Negative Bedside Urine Ketone - Negative Urine Specific [place] 1.025 Bedside Urine Occult Blood - Negative Bedside Urine pH 6.0 Bedside Urine Protein + 30 Bedside Urine Urobilinogen - Negative Bedside Urine Nitrite - Negative Bedside Urine Leukocytes + 70 Esterase MDM Narrative Medical decision making narrative: Patient presenting in typical fashion regarding prior episodes of urinary tract infection. She states she never has typical symptoms such as dysuria, frequency or urgency. Despite this, given her medical history a larger workup was performed. She has a very reassuring exam, story and labs. Urine shows findings consistent with UTI. Quinolone chosen based on urine culture results for demonstrating prior Staph aureus. Return precautions given, questions answered to her apparent satisfaction Discharge Plan Departure Patient Disposition: Home Clinical Impression: Urinary tract infection Qualifiers: Urinary tract infection type: site unspecified Hematuria presence: without hematuria Qualified Code(s): N39.0 - Urinary tract infection, site not specified Instructions: DI for Urinary Tract Infection (UTI) Activity Restrictions/Additional Instructions: *You have been diagnosed with [urinary tract infection] *What to do: *Take medications as directed: [facility] [place] *Follow up with your primary care provider in 2-3 days, call for an appointment. Let them know you were seen in the Emergency Department and that we ask that you be seen in follow up *Return to ER if you should have any new, worsening or concerning symptoms, such as [fever, shaking chills, worsening vomiting or other bothersome symptoms] Prescriptions: New ciprofloxacin HCl [Cipro] 500 mg tablet 500 mg PO BID Qty: 14 RF: 0 No Action (DME) lancets Misc See Rx Instructions .ROUTE .MEDSUPPLY Qty: 100 RF: 0 (DME) testing strips Qty: 100 RF: 0 glipizide 5 mg tablet 5 mg PO BID Qty: 180 RF: 1 Oxtellar XR 300 mg tablet extended release 24 hr 600 mg PO BID Qty: 360 RF: 3 (DME) Disabled Parking Permit Qty: 1 RF: 0 atorvastatin 40 mg tablet 40 mg PO BEDTIME Qty: 90 RF: 3 trazodone 50 mg tablet 25 mg PO BEDTIME PRN (Reason: Sleep) Qty: 45 RF: 3 tamsulosin 0.4 mg capsule 0.4 mg PO BEDTIME Qty: 90 RF: 3 gabapentin 100 mg capsule 100 mg PO TID Qty: 270 RF: 3 quetiapine [Seroquel] 25 mg tablet 25 mg PO BEDTIME Qty: 90 RF: 3 sennosides [senna] 8.6 mg tablet 8.6 mg PO DAILY RF: 0 metoprolol succinate 25 mg tablet extended release 24 hr 25 mg PO DAILY RF: 0 aspirin 81 mg Tablet,Chewable 81 mg PO DAILY RF: 0 acetaminophen 325 mg Capsule 650 mg PO Q4H PRN (Reason: Pain (Scale Score 1-3)) RF: 0 Referrals: Karlos Restrepo MD [Primary Care Provider] -
[2020-08-05 20:01] VITALS: BP 185/88; PULSE 98
[2020-08-05] MEDS: SODIUM CHLORIDE 0.9% 1,000 ML 1000 ML IV (20:07)
[2020-08-05 20:21] LABS: Add Manual Diff / Slide Review NO; Basophils Absolute Auto 100 /uL (0-100); Basophils Percent Auto 0.8 % (0-2); Eosinophils Absolute Auto 0 /uL (0-450); Eosinophils Percent Auto 0.3 % (2-4); Hematocrit 43.3 % (36-46); Hemoglobin 14.8 g/dL (12.0-16.0); Lymphocytes Absolute Auto 1500 /uL (1100-4500); Lymphocytes Percent Auto 12.7 % (25-40); Mean Corpuscular HGB Conc 34.3 % (30-36); Mean Corpuscular Hemoglobin 29.8 PG (26-34); Mean Corpuscular Volume 86.8 fL (80-100); Monocytes Absolute Auto 500 /uL (0-900); Monocytes Percent Auto 4.7 % (3-14); Neutrophils Absolute Auto 9500 /uL (1500-7000); Neutrophils Percent Auto 81.5 % (50-75); Platelet Count 339 X10^3/uL (150-400); Red Blood Cell Count 4.99 X10^6/uL (4.0-5.2); Red Cell Distribution Width 13.1 % (11.6-14.8); White Blood Cell Count 11.6 X10^3/uL (4.5-11.0)
[2020-08-05] MEDS: METOPROLOL IR 25 MG TABLET 50 MG PO (20:21)
[2020-08-05 21:15] LABS: Alanine Aminotransferase 38 IU/L (<35); Albumin 4.5 g/dL (3.5-5.0); Albumin Globulin Ratio 1.4 (1.0-2.8); Alkaline Phosphatase 124 U/L (38-126); Aspartate Aminotransferase 27 IU/L (14-36); BUN Creatinine Ratio 17.2 (6-22); Bilirubin Total 0.3 mg/dL (0.2-1.3); Blood Urea Nitrogen 11 mg/dL (7-17); Calcium 9.8 mg/dL (8.4-10.2); Carbon Dioxide 25 mmol/L (22-32); Chloride 93 mmol/L (98-107); Creatine Kinase 52 U/L (30-135); Estimated Glomerular Filt Rate > 60.0 mL/min (>60); Globulin 3.2 g/dL (1.7-4.1); Glucose 189 mg/dL (80-110); HEMOLYSIS < 15 (0-50); Potassium 4.3 mmol/L (3.4-5.1); Sodium 131 mmol/L (137-145); Total Protein 7.7 g/dL (6.3-8.2)
[2020-08-05 21:27] LABS: Troponin I < 0.012 ng/mL (0.01-0.034)
[2020-08-05 21:45] LABS: RBC Urine None Seen (0-5/HPF)
[2020-08-05] MEDS: levoFLOXacin 250 MG TABLET 500 MG PO (21:48)
[2020-08-05 21:53] LABS: Squamous Epithelial Cell Urine 1-5 /HPF (0-5/HPF); Transitional Epi Cells Urine 1-5/HPF (0-5/HPF); WBC Urine 30-100/HPF (0-5/HPF)
[2020-08-05 21:54] VITALS: BP 199/91; PULSE 93; RESP 18; O2SAT 96
[2020-08-05 21:54] LABS: Amorphous Sediment Urine 2+; Bacteria Urine Many (>30); Culture Indicated Urine Specimen Cultured; Hyaline Casts Urine 0-1/LPF
== END 2020-08-05 21:55 | disposition home or self-care (01) ==
PROVIDERS: Emergency Provider Emergency Medicine; Family Provider Student in an Organized Health Care Education/Training Program; PCP Student in an Organized Health Care Education/Training Program
DX: N39.0 Urinary tract infection, site not specified (principal)
CPT/HCPCS: 36415; 80053; 81003; 81015; 82550; 84484; 85025; 87077; 87086; 87186; 96360; 96361; 99284

== ENCOUNTER → 2021-02-20 12:31 | Outpatient (CLI) | payer MEDICARE, SELFPAY ==
[2019-11-29 15:01] VITALS: BMI 25.9
[2021-02-20 13:13] LABS: BUN Creatinine Ratio 23.5 (6-22); Blood Urea Nitrogen 16 mg/dL (7-17); Carbon Dioxide 29 mmol/L (22-32); Chloride 97 mmol/L (98-107); Estimated Glomerular Filt Rate > 60.0 mL/min (>60); Glucose 121 mg/dL (80-110); HEMOLYSIS < 15 (0-50); Potassium 4.7 mmol/L (3.4-5.1); Sodium 133 mmol/L (137-145)
== END ==
PROVIDERS: Family Provider Student in an Organized Health Care Education/Training Program; PCP Student in an Organized Health Care Education/Training Program; Referring Provider Student in an Organized Health Care Education/Training Program; Visit Provider Student in an Organized Health Care Education/Training Program
DX: E11.49 Type 2 diabetes mellitus with other diabetic neurological complication (principal); E78.5 Hyperlipidemia, unspecified
CPT/HCPCS: 36415; 80048; 83036

== ENCOUNTER → 2021-08-24 11:05 | Outpatient (CLI) | payer MEDICARE, SELFPAY ==
[2019-11-29 15:01] VITALS: BMI 25.9
[2021-08-24 12:22] LABS: Hemoglobin A1C% w Est Avg Glu 7.3 % (4.0-6.0)
[2021-08-24 12:23] LABS: Appearance Urine UA CLOUDY; Bilirubin Urine UA NEGATIVE (NEGATIVE); Color Urine UA YELLOW; Glucose Urine UA TRACE g/dL (Negative); Ketones Urine UA 1+ (NEGATIVE); Leukocyte Esterase Urine UA 2+ (NEGATIVE); Nitrite Urine UA NEGATIVE (Negative); Occult Blood Urine UA 3+ (Negative); Protein Urine UA 2+ (Negative); Specific Gravity Urine UA 1.025 (1.000-1.035); Urobilinogen Urine UA 0.2 E.U./dL (0.2)
[2021-08-24 12:39] LABS: Bacteria Urine Many (>30); Culture Indicated Urine Specimen Cultured; RBC Urine 5-10/HPF (0-5/HPF); Squamous Epithelial Cell Urine 0-1 /HPF (0-5/HPF); WBC Urine >100/HPF (0-5/HPF)
[2021-08-24 12:46] LABS: Creatinine Urine Random 131.3 mg/dL
[2021-08-24 12:47] LABS: Cholesterol 177 mg/dL (140-199); HDL Cholesterol 46 mg/dL (40-60); LDL Cholesterol Calculated 93 mg/dL (<100); Triglycerides 192 mg/dL (35-150)
[2021-08-24 13:03] LABS: Microalbumi Creatinin Ratio Ur 228.4 ug/mg CR (<30)
== END ==
PROVIDERS: Family Provider Student in an Organized Health Care Education/Training Program; PCP Student in an Organized Health Care Education/Training Program; Referring Provider Student in an Organized Health Care Education/Training Program; Visit Provider Student in an Organized Health Care Education/Training Program
DX: E11.49 Type 2 diabetes mellitus with other diabetic neurological complication (principal); E11.69 Type 2 diabetes mellitus with other specified complication; E78.5 Hyperlipidemia, unspecified; N39.0 Urinary tract infection, site not specified
CPT/HCPCS: 36415; 80061; 81001; 82043; 82570; 83036; 87086

== ENCOUNTER → 2021-11-22 14:06 | Outpatient (CLI) | payer MEDICARE, SELFPAY ==
[2019-11-29 15:01] VITALS: BMI 25.9
[2021-11-22 15:38] LABS: Creatinine Urine Random 52.8 mg/dL
[2021-11-22 16:02] LABS: Microalbumi Creatinin Ratio Ur 587.1 ug/mg CR (<30)
== END ==
PROVIDERS: Family Provider Student in an Organized Health Care Education/Training Program; PCP Student in an Organized Health Care Education/Training Program; Referring Provider Student in an Organized Health Care Education/Training Program; Visit Provider Student in an Organized Health Care Education/Training Program
DX: E11.49 Type 2 diabetes mellitus with other diabetic neurological complication (principal)
CPT/HCPCS: 82043; 82570

== ENCOUNTER → 2021-11-29 18:04 | Outpatient (CLI) | payer MEDICARE, SELFPAY ==
[2019-11-29 15:01] VITALS: BMI 25.9
[2021-11-29 19:03] LABS: Bilirubin Urine UA NEGATIVE (NEGATIVE); Color Urine UA YELLOW; Glucose Urine UA 1+ g/dL (Negative); Ketones Urine UA TRACE (NEGATIVE); Leukocyte Esterase Urine UA 2+ (NEGATIVE); Nitrite Urine UA NEGATIVE (Negative); Occult Blood Urine UA 2+ (Negative); Protein Urine UA 2+ (Negative); Specific Gravity Urine UA 1.025 (1.000-1.035); Urobilinogen Urine UA 0.2 E.U./dL (0.2)
[2021-11-29 19:07] LABS: Appearance Urine UA CLOUDY
[2021-11-29 19:18] LABS: Amorphous Sediment Urine 1+; Bacteria Urine Many (>30); Mucus Urine 2+ (Negative); RBC Urine 1-5/HPF (0-5/HPF); Renal Epithelial Cells Urine 0-1/HPF (0-1/HPF); Squamous Epithelial Cell Urine 1-5 /HPF (0-5/HPF); WBC Urine >100/HPF (0-5/HPF)
== END ==
PROVIDERS: Family Provider Student in an Organized Health Care Education/Training Program; PCP Student in an Organized Health Care Education/Training Program; Visit Provider Physician Assistant
DX: N39.0 Urinary tract infection, site not specified (principal); R11.2 Nausea with vomiting, unspecified; Z87.440 Personal history of urinary (tract) infections
CPT/HCPCS: 81001; 87086

== ENCOUNTER → 2021-12-18 10:58 | Outpatient (CLI) | payer MEDICARE, SELFPAY ==
[2019-11-29 15:01] VITALS: BMI 25.9
--- NOTE | 2021-12-31 14:11 | DIAB.MNT ---
Initial Diabetes Medical Nutrition Therapy Assessment Name: Zahira Newman Date: 12/18/21 Time: 11a-1210p Dx: Type II Diabetes Provider: Kaye Rodriges presents for initial visit regarding T2DM. States she is interested in DM and CKD nutrition. Reports she has completed DM ed at [facility]. 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 Received eye tx q 5 weeks. Also has paralysis on left side, uses wheelchair. She is here today with her caregiver, Sara. H/o HTN. Reports recent Bp has improved, today 116/68. Diet Recall: 9am: egg, sausage in a low carb tortilla +/- 5oz yogurt 1230p: ham and cheese wrap low carb sn; nothing or nuts or banana 6p: meat with salad and non starch veggie Beverages: water 40-48oz, 1-2c coffee Anthropometrics: Ht: 64 Wt: no recent wt due to wheelchair use per report Physical Activity: 20-30 min stationary eliptical daily Self-Monitoring Blood Glucose: uses [employer]. Did not bring in megan. Reports today FBG 115 mg/dL. Highest 150mg/dL per report. Diabetes Medications: Glipizide 5mg BID Pertinent Labs: hgA1c 7.3% 08/2021 HgA1c 7% 02/2022 6.6% 05/2020 Past Medical History: (Last Reviewed 11/29/21 @ 19:34 by Naty Cueto PA-C) Cardiac arrhythmia (~2018) Chronic constipation Depression Diabetes mellitus type 2, noninsulin dependent Gastroparesis (~2018) History of right MCA stroke (~08/25/18) History of seizures History of ST elevation myocardial infarction (STEMI) History of UTI Hypertension Left spastic hemiplegia Nerve pain Vision disorder Nutrition Rx: Carbohydrates: Meal:30g Snack:15-30g Na: 2000-2300mg daily 300-500mg per meal Nutrition Diagnosis: - Excessive Na intake r/t nutrition knowledge deficit aeb diet recall of high Na foods - Self monitoring deficit r/t no pc readings aeb pt report Intervention: This participant was very receptive. Provided appropriate educational handouts. Discussed the following topics: Completed intake assessment. Discussed barriers to care. Pathophysiology of T2DM review BG self-monitoring, how often, and when to check. Suggested checking at different times to evaluate meals Plate Method, impact of macronutrients on blood sugar, meal timing, carbohydrate counting, pairing macronutrients and spreading out carbohydrates for better blood glucose management Recommended Na for meals and daily Heart health nutrition Role of physical activity and following provider guidelines for safety Created SMART goals for patient self-care and success. Goals: Check 1-2 hr pc BG Choose low Na tomato soup Read food labels for 300-500mg Na serving or less Cont monitor BP Bring in [employer] megan for review Follow-up: TRACEY SAMUELS follow-up in March per Zahira's request. States she would like to follow-up in a couple months. Adrianna Santillan RDN, [facility] Certified Diabetes Care and Society Editor P: [phone] Thank you for this referral
== END ==
PROVIDERS: Family Provider Student in an Organized Health Care Education/Training Program; PCP Student in an Organized Health Care Education/Training Program; Referring Provider Student in an Organized Health Care Education/Training Program; Visit Provider Student in an Organized Health Care Education/Training Program
DX: E11.9 Type 2 diabetes mellitus without complications (principal); Z79.84 Long term (current) use of oral hypoglycemic drugs; Z71.3 Dietary counseling and surveillance
CPT/HCPCS: 97802

== ENCOUNTER → 2021-12-28 10:14 | Outpatient (CLI) | payer MEDICARE, SELFPAY ==
[2019-11-29 15:01] VITALS: BMI 25.9
[2021-12-28 11:52] LABS: Hemoglobin A1C% w Est Avg Glu 7.2 % (4.0-6.0)
[2021-12-28 12:12] LABS: Blood Urea Nitrogen 14 mg/dL (7-17); Calcium 9.2 mg/dL (8.4-10.2); Carbon Dioxide 27 mmol/L (22-32); Chloride 96 mmol/L (98-107); Estimated Glomerular Filt Rate > 60 mL/min (>60); Glucose 147 mg/dL (80-110); HEMOLYSIS < 15 (0-50); Sodium 132 mmol/L (137-145)
== END ==
PROVIDERS: Family Provider Student in an Organized Health Care Education/Training Program; PCP Student in an Organized Health Care Education/Training Program; Referring Provider Student in an Organized Health Care Education/Training Program; Visit Provider Student in an Organized Health Care Education/Training Program
DX: E11.49 Type 2 diabetes mellitus with other diabetic neurological complication (principal); R80.9 Proteinuria, unspecified
CPT/HCPCS: 36415; 80048; 83036

== ENCOUNTER → 2022-01-11 14:24 | Outpatient (CLI) | payer MEDICARE, SELFPAY ==
[2019-11-29 15:01] VITALS: BMI 25.9
--- NOTE | 2022-01-11 14:25 | DI.MG.S_ITS ---
BILATERAL DIGITAL DIAGNOSTIC MAMMOGRAM 3D/2D: 01/11/2022 CLINICAL: Short term follow up of the left breast, due for bilateral imaging. Comparison is made to exams dated: 01/29/2021 ultrasound, 01/29/2021 mammogram, 06/06/2020 ultrasound, and 06/06/2020 mammogram - [facility]. There are scattered areas of fibroglandular density in both breasts (category b / 25%-50% glandular tissue). The asymmetry in the left breast posterior depth central to the nipple seen on the craniocaudal view only seen on screening mammogram from 04/26/2020 is no longer seen. No other significant masses, calcifications, or other findings are seen in either breast. IMPRESSION: BENIGN There is no mammographic evidence of malignancy. Return to annual mammogram screening schedule is recommended. Based on the Tyrer Cuzick model (a risk assessment model) the patient's lifetime risk is 7.7% and her 10 year risk is 3.5%. According to the ACR, ACS, and NCCN guidelines, an annual breast MRI exam along with mammogram is recommended if the patient's lifetime risk is 20% or greater. This exam was interpreted at Station ID: [id number]. NOTE: For mammograms, a report in lay terms will be sent to the patient. Approximately 15% of breast malignancies will not be visualized mammographically. In the management of a palpable breast mass, a negative mammogram must not discourage biopsy of a clinically suspicious lesion. Electronically Signed By: Shanae Cifuentes M.D. lk/:01/11/2022 15:11:09 letter sent: Normal Exam ACR BI-RADS Category 2: Benign Finding(s) 3342F
== END ==
PROVIDERS: Family Provider Student in an Organized Health Care Education/Training Program; PCP Student in an Organized Health Care Education/Training Program; Referring Provider Student in an Organized Health Care Education/Training Program; Visit Provider Student in an Organized Health Care Education/Training Program
DX: Z12.39 Encounter for other screening for malignant neoplasm of breast (principal); R92.8 Other abnormal and inconclusive findings on diagnostic imaging of breast; N63.20 Unspecified lump in the left breast, unspecified quadrant
CPT/HCPCS: 77066; G0279

== ENCOUNTER → 2022-01-18 11:04 | Outpatient (CLI) | payer MEDICARE, SELFPAY ==
[2019-11-29 15:01] VITALS: BMI 25.9
--- NOTE | 2022-01-18 11:05 | DI.CT.S_ITS ---
PROCEDURE: CT IVP A/P W/WO INDICATIONS: UTI/as requested by urologist for scheduling TECHNIQUE: Optional 5 mm thick noncontrast images acquired from the diaphragm to the symphysis pubis. After the administration of intravenous contrast, 5 mm thick images acquired from the diaphragm to the symphysis pubis after a 10-minute delay. 2 mm thick coronal and sagittal reformats were then performed of the kidneys and ureters. For radiation dose reduction, the following was used: automated exposure control, adjustment of mA and/or kV according to patient size. COMPARISON: Merged With [facility], CT, CT ABDOMEN PELVIS W CON, 11/07/2018, 19:05. FINDINGS: Image quality: Excellent. Lung bases: Lung bases are clear. Heart size is normal. Urinary system: There is a small 1 millimeter nonobstructing left renal calculus present. Kidneys are otherwise normal in appearance. No perinephric fat stranding. There is normal bilateral renal enhancement. Renal calyces appear normal in morphology when filled with contrast. Opacified portions of both ureters demonstrate normal caliber. There is some asymmetric soft tissue thickening at the bladder base. If further evaluation is clinically indicated direct visualization may be of further clinical value. No calcified bladder stones. Other solid organs: Liver is normal in size and enhancement. There is a large gallstone present within the patient's gallbladder. Biliary system is non dilated. Pancreas enhances normally. Spleen is normal in size and enhancement. No adrenal nodules. Peritoneum and bowel: Bowel loops demonstrate normal wall thickness and caliber. No free fluid or air. There is colonic diverticulosis without evidence for diverticulitis. The appendix is visualized and appears normal. Nodes and vessels: No retroperitoneal or mesenteric adenopathy by size criteria. Aorta and inferior vena cava are normal in size. Abdominal wall: No ventral hernias. Pelvis: No pathologic free pelvic fluid. No inguinal hernias or adenopathy. Bones: No suspicious bony lesions. No vertebral body compression fractures. IMPRESSION: 1. Soft tissue prominence at the bladder base. If further evaluation is clinically indicated direct visualization may be further clinical value. 2. Small 1 millimeter nonobstructing left renal calculus. 3. Large gallstone present within the patient's gallbladder. 4. Colonic diverticulosis. 5. Atherosclerotic change. Dictated by: Travis Nath M.D. on 01/18/2022 at 14:34 Approved by: Travis Nath M.D. on 01/18/2022 at 14:55
== END ==
LOC: CT 11:05
PROVIDERS: Family Provider Student in an Organized Health Care Education/Training Program; PCP Student in an Organized Health Care Education/Training Program; Referring Provider Student in an Organized Health Care Education/Training Program; Visit Provider Student in an Organized Health Care Education/Training Program
DX: N39.0 Urinary tract infection, site not specified (principal); N20.0 Calculus of kidney; K80.20 Calculus of gallbladder without cholecystitis without obstruction
CPT/HCPCS: 74178; Q9967

== ENCOUNTER → 2022-01-29 12:35 | Outpatient (CLI) | payer MEDICARE, SELFPAY ==
[2019-11-29 15:01] VITALS: BMI 25.9
== END ==
PROVIDERS: Family Provider Student in an Organized Health Care Education/Training Program; PCP Student in an Organized Health Care Education/Training Program; Visit Provider Urology
DX: N39.0 Urinary tract infection, site not specified (principal); K80.20 Calculus of gallbladder without cholecystitis without obstruction; K59.09 Other constipation; R26.89 Other abnormalities of gait and mobility; R39.81 Functional urinary incontinence; Z86.73 Personal history of transient ischemic attack (TIA), and cerebral infarction without residual deficits
CPT/HCPCS: 81002; 87086; 99214

== ENCOUNTER → 2022-02-04 11:41 | Outpatient (CLI) | payer MEDICARE, SELFPAY ==
[2019-11-29 15:01] VITALS: BMI 25.9
[2022-02-04 13:54] LABS: Appearance Urine UA CLOUDY; Bilirubin Urine UA NEGATIVE (NEGATIVE); Color Urine UA YELLOW; Glucose Urine UA TRACE g/dL (Negative); Ketones Urine UA NEGATIVE (NEGATIVE); Leukocyte Esterase Urine UA 3+ (NEGATIVE); Nitrite Urine UA NEGATIVE (Negative); Occult Blood Urine UA TRACE-LYSED (Negative); Protein Urine UA 1+ (Negative); Urobilinogen Urine UA 0.2 E.U./dL (0.2)
[2022-02-04 14:06] LABS: Amorphous Sediment Urine 1+; Bacteria Urine Moderate (10-30); Culture Indicated Urine Specimen Cultured; Mucus Urine 1+ (Negative); RBC Urine 0-1/HPF (0-5/HPF); Renal Epithelial Cells Urine 1-5/HPF (0-1/HPF); Squamous Epithelial Cell Urine 5-10 /HPF (0-5/HPF); WBC Urine >100/HPF (0-5/HPF)
== END ==
PROVIDERS: Family Provider Student in an Organized Health Care Education/Training Program; PCP Student in an Organized Health Care Education/Training Program; Referring Provider Urology; Visit Provider Urology
DX: N39.0 Urinary tract infection, site not specified (principal)
CPT/HCPCS: 81001; 87086

== ENCOUNTER → 2022-02-08 10:02 | Outpatient (CLI) | payer MEDICARE, SELFPAY ==
[2019-11-29 15:01] VITALS: BMI 25.9
== END ==
PROVIDERS: Family Provider Student in an Organized Health Care Education/Training Program; PCP Student in an Organized Health Care Education/Training Program; Referring Provider Urology; Visit Provider Urology
DX: N39.0 Urinary tract infection, site not specified (principal)
CPT/HCPCS: 87086

== ENCOUNTER → 2022-03-07 12:41 | Outpatient (CLI) | payer MEDICARE, SELFPAY ==
[2019-11-29 15:01] VITALS: BMI 25.9
--- NOTE | 2022-03-07 13:37 | DIAB.FU ---
Follow-up Diabetes Education Assessment Name: Zahira Newman Date: 03/07/22 Time: 1/130p Dx: Type II Diabetes Zahira presents with caregiver, Sara, for follow-up. States overall things are going well. Feels confident with nutrition. Not particularly worried about her Na intake. States she has had some low blood sugar over the last month, but this resolved with reduced glipizide. Now back on rx'd dose of glipizide. Thinks she may have a UTI and BG are reflecting this with elevated FBG. when she has a low, states she treats with chocolate or honey on toast. 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 Reports BP have been going well with most ranging 99-120 over 65/80 Physical Activity: Cont stationary elliptical daily Self-Monitoring Blood Glucose: Brought [place] today. All after meal readings <180 mg/dL over the last couple weeks. Some FBG elevations this month up to 174 mg/dL. Plans to see urology after our appt. Prior to this month all FBG were 90-130mg/dL, in goal. Diabetes Medications: 5mg glipizide BID Pertinent Labs: 12/2021 HgA1c 7.2% (slight improved from 7.3%) Past Medical History: (Last Reviewed 02/13/22 @ 15:11 by Souleymane Shine MD) Cardiac arrhythmia (~2018) Chronic constipation Depression Diabetes mellitus type 2, noninsulin dependent Gastroparesis (~2019) History of right MCA stroke (~08/25/18) History of seizures History of ST elevation myocardial infarction (STEMI) History of UTI Hypertension Left spastic hemiplegia Nerve pain Vision disorder Intervention: This participant was very receptive. Provided appropriate educational handouts. Discussed the following topics: Recent blood sugar results and trends Medication management Hypoglycemia tx: rule of 15 Physical activity plan HgA1c goal Impact of illness on BG Hydration Created SMART goals for patient self-care and success. Goals: Check 1-2 hr pc BG-met Choose low Na tomato soup- d/c (not eating tomato soup now) Read food labels for 300-500mg Na serving or less Cont monitor BP- met Bring in [place] megan for review- met Follow-up: RDN [facility] follow-up prn. Zahira states she feel confident in her DM and CKD management. States she would like to f/u as needed. Adrianna Santillan RDN, [facility] Certified Diabetes Care and Equipment Service Technician P: [phone] Thank you for this referral
== END ==
PROVIDERS: Family Provider Student in an Organized Health Care Education/Training Program; PCP Student in an Organized Health Care Education/Training Program; Referring Provider Student in an Organized Health Care Education/Training Program; Visit Provider Student in an Organized Health Care Education/Training Program
DX: E11.9 Type 2 diabetes mellitus without complications (principal); Z79.84 Long term (current) use of oral hypoglycemic drugs; Z71.3 Dietary counseling and surveillance
CPT/HCPCS: G0108

== ENCOUNTER → 2022-03-07 14:01 | Outpatient (CLI) | payer MEDICARE, SELFPAY ==
[2019-11-29 15:01] VITALS: BMI 25.9
== END ==
PROVIDERS: Family Provider Student in an Organized Health Care Education/Training Program; PCP Student in an Organized Health Care Education/Training Program; Visit Provider Urology
DX: N39.0 Urinary tract infection, site not specified (principal)
CPT/HCPCS: 87077; 87086; 87186

== ENCOUNTER → 2023-12-19 08:46 | Outpatient (CLI) | payer MEDICARE, SELFPAY ==
[2019-11-29 15:01] VITALS: BMI 25.9
[2023-12-19 09:37] LABS: Alanine Aminotransferase 27 IU/L (<35); Albumin 4.3 g/dL (3.5-5.0); Albumin Globulin Ratio 1.6 (1.0-2.8); Alkaline Phosphatase 92 U/L (38-126); Aspartate Aminotransferase 25 IU/L (14-36); BUN Creatinine Ratio 21.3 (6-22); Bilirubin Total 0.3 mg/dL (0.2-1.3); Blood Urea Nitrogen 20 mg/dL (7-17); Calcium 8.9 mg/dL (8.4-10.2); Carbon Dioxide 24 mmol/L (22-32); Chloride 96 mmol/L (98-107); Cholesterol 153 mg/dL (140-199); Estimated Glomerular Filt Rate > 60 mL/min (>60); Globulin 2.7 g/dL (1.7-4.1); Glucose 135 mg/dL (80-110); HDL Cholesterol 42 mg/dL (40-60); HEMOLYSIS < 15 (0-50); LDL Cholesterol Calculated 88 mg/dL (<100); Potassium 4.6 mmol/L (3.4-5.1); Sodium 128 mmol/L (137-145); Triglycerides 114 mg/dL (35-150)
[2023-12-19 09:47] LABS: Hemoglobin A1C% w Est Avg Glu 6.2 % (4.0-6.0)
[2023-12-19 10:03] LABS: Thyroid Stimulating Hormone 2.48 uIU/mL (0.47-4.68)
[2023-12-19 10:22] LABS: Appearance Urine UA CLEAR; Bilirubin Urine UA NEGATIVE (NEGATIVE); Color Urine UA YELLOW; Glucose Urine UA NEGATIVE (Negative); Ketones Urine UA NEGATIVE (NEGATIVE); Leukocyte Esterase Urine UA 1+ (NEGATIVE); Nitrite Urine UA NEGATIVE (Negative); Occult Blood Urine UA TRACE-INTACT (Negative); Protein Urine UA TRACE (Negative); Urobilinogen Urine UA 0.2 E.U./dL (0.2)
[2023-12-19 10:31] LABS: Creatinine Urine Random 100.91 mg/dL
[2023-12-19 10:34] LABS: Bacteria Urine None Seen; Culture Indicated Urine Specimen Cultured; RBC Urine 0-1/HPF (0-5/HPF); Squamous Epithelial Cell Urine 0-1 /HPF (0-5/HPF); Urine Volume 10mL (spun); WBC Urine 5-10/HPF (0-5/HPF)
[2023-12-19 10:36] LABS: Microalbumin Urine Random 8.8 mg/dL (0-1.6)
== END ==
LOC: LAB 08:50
PROVIDERS: Family Provider Student in an Organized Health Care Education/Training Program; PCP Physician Assistant; Referring Provider Physician Assistant; Visit Provider Physician Assistant
DX: E11.65 Type 2 diabetes mellitus with hyperglycemia (principal); N39.9 Disorder of urinary system, unspecified; Z79.4 Long term (current) use of insulin
CPT/HCPCS: 36415; 80053; 80061; 81001; 82043; 82570; 83036; 84443; 87086

== ENCOUNTER → 2024-01-09 08:50 | Outpatient (CLI) | payer MEDICARE, SELFPAY ==
[2019-11-29 15:01] VITALS: BMI 25.9
[2024-01-09 09:33] LABS: Appearance Urine UA CLEAR; Bilirubin Urine UA NEGATIVE (NEGATIVE); Color Urine UA YELLOW; Glucose Urine UA NEGATIVE (Negative); Ketones Urine UA NEGATIVE (NEGATIVE); Leukocyte Esterase Urine UA TRACE (NEGATIVE); Nitrite Urine UA NEGATIVE (Negative); Occult Blood Urine UA 2+ (Negative); Protein Urine UA TRACE (Negative); Urobilinogen Urine UA 0.2 E.U./dL (0.2)
[2024-01-09 09:41] LABS: RBC Urine 5-10/HPF (0-5/HPF); Urine Volume 10mL (spun)
[2024-01-09 09:42] LABS: Bacteria Urine None Seen; Culture Indicated Urine Specimen Cultured; Squamous Epithelial Cell Urine 1-5 /HPF (0-5/HPF); WBC Urine 5-10/HPF (0-5/HPF)
[2024-01-09 10:12] LABS: Creatinine Urine Random 115.27 mg/dL
[2024-01-09 10:14] LABS: Microalbumin Urine Random 8.8 mg/dL (0-1.6)
[2024-01-09 10:28] LABS: Alanine Aminotransferase 30 IU/L (<35); Albumin 4.1 g/dL (3.5-5.0); Albumin Globulin Ratio 1.4 (1.0-2.8); Alkaline Phosphatase 93 U/L (38-126); Aspartate Aminotransferase 24 IU/L (14-36); BUN Creatinine Ratio 21.7 (6-22); Bilirubin Total 0.4 mg/dL (0.2-1.3); Blood Urea Nitrogen 18 mg/dL (7-17); Calcium 9.1 mg/dL (8.4-10.2); Carbon Dioxide 24 mmol/L (22-32); Chloride 95 mmol/L (98-107); Cholesterol 158 mg/dL (140-199); Estimated Glomerular Filt Rate > 60 mL/min (>60); Globulin 2.9 g/dL (1.7-4.1); Glucose 111 mg/dL (80-110); HDL Cholesterol 46 mg/dL (40-60); HEMOLYSIS < 15 (0-50); LDL Cholesterol Calculated 85 mg/dL (<100); Potassium 4.6 mmol/L (3.4-5.1); Sodium 129 mmol/L (137-145); Triglycerides 134 mg/dL (35-150)
[2024-01-09 10:59] LABS: Thyroid Stimulating Hormone 2.59 uIU/mL (0.47-4.68)
[2024-01-09 11:02] LABS: Hemoglobin A1C% w Est Avg Glu 6.2 % (4.0-6.0)
== END ==
PROVIDERS: Family Provider Student in an Organized Health Care Education/Training Program; PCP Physician Assistant; Referring Provider Physician Assistant; Visit Provider Physician Assistant
DX: E11.65 Type 2 diabetes mellitus with hyperglycemia (principal); N39.9 Disorder of urinary system, unspecified; Z79.4 Long term (current) use of insulin
CPT/HCPCS: 36415; 80053; 80061; 81001; 82043; 82570; 83036; 84443; 87086

== ENCOUNTER → 2024-01-27 07:26 | Outpatient (CLI) | payer MEDICARE, SELFPAY ==
[2019-11-29 15:01] VITALS: BMI 25.9
[2024-01-27 08:45] LABS: Alanine Aminotransferase 36 IU/L (<35); Albumin 3.9 g/dL (3.5-5.0); Albumin Globulin Ratio 1.6 (1.0-2.8); Alkaline Phosphatase 87 U/L (38-126); Aspartate Aminotransferase 32 IU/L (14-36); BUN Creatinine Ratio 17.6 (6-22); Bilirubin Total 0.3 mg/dL (0.2-1.3); Blood Urea Nitrogen 13 mg/dL (7-17); Calcium 8.8 mg/dL (8.4-10.2); Carbon Dioxide 26 mmol/L (22-32); Chloride 97 mmol/L (98-107); Estimated Glomerular Filt Rate > 60 mL/min (>60); Globulin 2.4 g/dL (1.7-4.1); Glucose 126 mg/dL (80-110); HEMOLYSIS < 15 (0-50); Potassium 4.4 mmol/L (3.4-5.1); Sodium 132 mmol/L (137-145); Total Protein 6.3 g/dL (6.3-8.2)
== END ==
PROVIDERS: Family Provider Student in an Organized Health Care Education/Training Program; PCP Physician Assistant; Referring Provider Physician Assistant; Visit Provider Physician Assistant
DX: E87.1 Hypo-osmolality and hyponatremia (principal)
CPT/HCPCS: 36415; 80053